=== PATIENT | male | born 1935 | race Caucasian/White ===

== ENCOUNTER 2017-02-13 08:15 | Day surgery (SDC) | payer MEDICARE ==
[~2017-02-13 08:15] MED LIST: Ak-Dilate OPHTHALMIC*** 0.71 ML, Cyclogyl 1% OPHTH SOL 5 ML 0.71 ML, GATIFLOXACIN 0.5% ... OP ONE; DIPRIVAN 200 MG/20 ML IV ONE; Lactated Ringers 1,000 ML IV SCH; TETRACAINE 0.5% STERI-UNIT SOL OP ONE
[2017-02-13] MEDS ORDERED: Zofran 4 MG/2 ML VIAL IV PRN (09:00)
[2017-02-13] MEDS ORDERED: ACETAZOLAMIDE 250 MG TABLET PO ONE (09:00)
[2017-02-13] MEDS ORDERED: Lactated Ringers 1,000 ML IV ONE (09:05)
--- NOTE | 2017-02-13 12:49 | OP ---
DATE/TIME OF OPERATION: 02/13/2017 1147 TIME DICTATED: 1231 PREOPERATIVE DIAGNOSIS: Senile cataract of right eye. POSTOPERATIVE DIAGNOSIS: Senile cataract of right eye. 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 OPERATION: Cataract extraction of right eye with an intraocular lens implant. STANDARD __X___ COMPLEX ANESTHESIA: MAC. ___X___ Monitored anesthesia care in combination with topical and intra-cameral anesthesia (because of the established specific risk of reflux, arrhythmias, or an anxiety attack associated with ocular manipulation as well as difficulty of the general farm hand to manage such potentially catastrophic events while simultaneously attempting to complete the surgical procedure, it was deemed necessary for the patient's safety to have an anesthesiologist or a nurse learning and development analyst present during the procedure whenever possible. The anesthesiologist or the nurse learning and development analyst was utilized to monitor and regulate the intravenous sedation of the patient, so the patient was cooperative, relaxed, and comfortable). Topical anesthesia using Tetracaine eye drops together with intra cameral anesthesia using Lidocaine 1% MPF. The nurse was utilized to monitor the patient. ANESTHESIA PROVIDER: Benjie Sandy CRNA. COMPLICATIONS: None. BLOOD LOSS: None. INDICATIONS: The patient is undergoing cataract surgery in the hopes of eliminating the visual complaints and difficulty. PROCEDURE: After arriving at the facility's outpatient surgery area, an IV was started; the patient was given 5 mg of p.o. Versed. (If an anesthesia provider was not monitoring the patient) The patient was then given topical anesthetic Tetracaine eye drops. A cotton pellet was soaked into a solution of a combination of Zymaxid 0.5%, Devon-Synephrine 2.5% and Ocufen (other drops might have been substituted referenced in the patient's record). The pellet was inserted by the RN into the lower conjunctival cul-de-sac with a sterile forceps and left for 20 minutes. The pellet was then removed by the RN with a sterile forceps before taking the patient to the operating room. The preoperative area nurse identified the patient and marked the correct eye to be operated on. I identified the correct eye to be operated on and marked it appropriately in the outpatient surgery area. The patient was then taken into the operating room. Tetracaine eye drops were installed again in the correct eye. The eyelids and the lashes and the lid margins were scrubbed with Betadine solution. One drop of the diluted Betadine solution was placed in the conjunctival cul-de-sac for 45 seconds and then was irrigated. A drop of Tetracaine Gel was placed in the conjunctival cul-de-sac. The patient's forehead was taped to secure it during the procedure. The patient was monitored. The patient was then draped in the usual way for this procedure. An eye speculum was used to separate the eyelids. The eye was then fixated and a temporal 2.5 mm incision was made in the clear cornea temporally at the limbus. Through the incision, 0.25 cc of 1% non-preserved lidocaine was injected into the anterior chamber for intracameral anesthesia. The anterior chamber was then filled with viscoelastic. The pupil was small. I felt that it would be safer to mechanically dilate the pupil. A Malyugin ring was used at this point which dilated the pupil. That was removed at the end of the procedure prior to aspiration of the viscoelastic from the anterior chamber and posterior to the intraocular lens implant. The cataract had a great amount of cortical changes. That rendered seeing the anterior capsule difficult for a safe performance of an anterior capsulotomy. I injected an air bubble into the anterior chamber. I then injected 1 ML of vision blue solution into the anterior chamber. The vision blue solution was irrigated from the anterior chamber after 30 seconds. The anterior capsule was stained which facilitated performing the anterior capsulotomy safely. After that was completed, a cystotome was introduced into the anterior chamber and a round anterior capsulotomy was performed. The capsule was removed by a forceps. Hydrodissection was next carried utilizing a 25-gauge cannula and balanced salt solution to delineate the cortical material from the capsule and the nucleus from the cortical material. The nucleus was rotated freely into the capsular bag with no difficulty. The phaco tip of the [employer] Phacoemulsifier was introduced into the anterior chamber and two grooves were made into the nucleus 90 degrees apart. Using two spatulas resulted into the nucleus being fractured into four quadrants. The phaco tip was then used to remove each quadrant of the nucleus. Viscoelastic was used during this process to protect the corneal endothelium. Once the entire nucleus was removed, the phaco tip then was removed and the irrigation tip was introduced into the eye and the cortex was removed. The posterior capsule was polished. It was noticed that there was a tear into the posterior capsule with few vitreous strands into the pupil plan. An anterior vitrectomy was performed. A 20.00 diopter, SN60WF, posterior chamber lens implant, was inspected and found to be grossly normal. The implant was inserted into the implant injector cartridge; Viscoelastic again was introduced into the anterior chamber, which filled the capsular bag. The implant injector's cartridge tip was placed at the limbal wound and the posterior chamber implant was released into the capsular bag and rotated appropriately. The implant was found to be into the capsular bag and it was centered. 0.2 ml of Tri-Moxi was introduced via 27 gauge cannula into the vitreous cavity through the ciliary processes. Viscoelastic was aspirated from the anterior chamber and posterior to the intraocular lens implant from the capsular bag using the irrigating tip. The anterior chamber was irrigated and filled with 5 cc antibiotic solution (500 cc of BSS plus 2 ml of Fortaz 100 mg/ml) ( if patient was not allergic to the medication). The lips of the corneal incision were hydrated using BSS solution. The anterior chamber was checked and found to be water tight. __X__ One drop each of antibiotic, steroid and NSAID drops (refer to chart for drops used) were placed in the conjunctival cul-de-sac of the operated eye. Patient tolerated the procedure quite well and left the operating room in satisfactory condition. DISCHARGE SUMMARY: The patient was released in stable condition. The patient and those with the patient were given an instruction sheet as of how to care for the eye after surgery as well as counseling on any abnormal laboratory studies by the postoperative RN. The patient was also given an appointment card for follow-up in the office and is to call immediately for any difficulties including but not limited to pain in the eye, decreased vision, discharge from the eye, headache and or fever. DISCHARGE DIAGNOSIS: Pseudophakia of right eye.
[2017-02-13 13:00] VITALS: O2SAT 94
[2017-02-13 13:24] VITALS: BP 147/70; PULSE 54
[2017-02-13] MEDS ORDERED: BETADINE 5% OPHTHALMIC 30 ML OP ONE (13:30)
[2017-02-13] MEDS ORDERED: Epinephrine Preservative Free 1 MG/ML INTRAOP ONE (13:30)
[2017-02-13] MEDS ORDERED: LIDOCAINE HCL 1% AMPUL 5 ML IJ ONE (13:30)
[2017-02-13] MEDS ORDERED: BSS 500 ML, Fortaz/Tazicef 1 GM** 0.2 G IO ONE ×2 (13:30)
== END 2017-02-13 13:15 | disposition home or self-care (01) ==
LOC: SDC 08:15 → EDSTATUS 13:46
PROVIDERS: ATTEND Ophthalmology
PROC: 08RJ3JZ Replacement of Right Lens with Synthetic Substitute, Percutaneous Approach (ICD-10-PCS; principal; 2017-02-13)
PROC: 08B43ZZ Excision of Right Vitreous, Percutaneous Approach (ICD-10-PCS; 2017-02-13)
DX: H25.9 Unspecified age-related cataract (principal)
CPT/HCPCS: 66984; 67005; C1780; 00142; 99100; J0171; J2704; A9270-GY

== ENCOUNTER 2017-03-13 08:44 | Day surgery (SDC) | payer MEDICARE ==
[~2017-03-13 08:44] MED LIST changes: -DIPRIVAN 200 MG/20 ML IV ONE
[2017-03-13] MEDS ORDERED: Lactated Ringers 1,000 ML IV ONE (08:55)
[2017-03-13] MEDS ORDERED: Zofran 4 MG/2 ML VIAL IV PRN (09:30)
[2017-03-13] MEDS ORDERED: ACETAZOLAMIDE 250 MG TABLET PO ONE (09:30)
[2017-03-13] MEDS ORDERED: BETADINE 5% OPHTHALMIC 30 ML OP ONE (10:15)
[2017-03-13] MEDS ORDERED: BSS 500 ML, Fortaz/Tazicef 1 GM** 0.2 G IO ONE ×2 (10:15)
[2017-03-13] MEDS ORDERED: Epinephrine Preservative Free 1 MG/ML INTRAOP ONE (10:15)
[2017-03-13] MEDS ORDERED: LIDOCAINE HCL 1% AMPUL 5 ML IJ ONE (10:15)
[2017-03-13] MEDS ORDERED: DIPRIVAN 200 MG/20 ML IV ONE (13:00)
[2017-03-13 14:08] VITALS: O2SAT 97
[2017-03-13 14:09] VITALS: BP 152/68; PULSE 50
--- NOTE | 2017-03-14 13:41 | OP ---
DATE/TIME OF OPERATION: 03/13/2017 1250 TIME DICTATED: 1333 PREOPERATIVE DIAGNOSIS: Senile cataract of left eye. POSTOPERATIVE DIAGNOSIS: Senile cataract of left eye. 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 OPERATION: Cataract extraction of left eye with an intraocular lens implant. STANDARD __X___ COMPLEX ANESTHESIA: MAC. __X____ Monitored anesthesia care in combination with topical and intra-cameral anesthesia (because of the established specific risk of reflux, arrhythmias, or an anxiety attack associated with ocular manipulation as well as difficulty of the mica layer to manage such potentially catastrophic events while simultaneously attempting to complete the surgical procedure, it was deemed necessary for the patient's safety to have an anesthesiologist or a nurse mail carriers supervisor present during the procedure whenever possible. The anesthesiologist or the nurse mail carriers supervisor was utilized to monitor and regulate the intravenous sedation of the patient, so the patient was cooperative, relaxed, and comfortable). Topical anesthesia using Tetracaine eye drops together with intra cameral anesthesia using Lidocaine 1% MPF. The nurse was utilized to monitor the patient. ANESTHESIA PROVIDER: Benjie Sandy CRNA. COMPLICATIONS: None. BLOOD LOSS: None. INDICATIONS: The patient is undergoing cataract surgery in the hopes of eliminating the visual complaints and difficulty. PROCEDURE: After arriving at the facility's outpatient surgery area, an IV was started; the patient was given 5 mg of p.o. Versed. (If an anesthesia provider was not monitoring the patient) The patient was then given topical anesthetic Tetracaine eye drops. A cotton pellet was soaked into a solution of a combination of Zymaxid 0.5%, Devon-Synephrine 2.5% and Ocufen (other drops might have been substituted referenced in the patient's record). The pellet was inserted by the RN into the lower conjunctival cul-de-sac with a sterile forceps and left for 20 minutes. The pellet was then removed by the RN with a sterile forceps before taking the patient to the operating room. The preoperative area nurse identified the patient and marked the correct eye to be operated on. I identified the correct eye to be operated on and marked it appropriately in the outpatient surgery area. The patient was then taken into the operating room. Tetracaine eye drops were installed again in the correct eye. The eyelids and the lashes and the lid margins were scrubbed with Betadine solution. One drop of the diluted Betadine solution was placed in the conjunctival cul-de-sac for 45 seconds and then was irrigated. A drop of Tetracaine Gel was placed in the conjunctival cul-de-sac. The patient's forehead was taped to secure it during the procedure. The patient was monitored. The patient was then draped in the usual way for this procedure. An eye speculum was used to separate the eyelids. The eye was then fixated and a temporal 2.5 mm incision was made in the clear cornea temporally at the limbus. Through the incision, 0.25 cc of 1% non-preserved lidocaine was injected into the anterior chamber for intracameral anesthesia. The anterior chamber was then filled with viscoelastic. The pupil was small. I felt that it would be safer to mechanically dilate the pupil. A Malyugin ring was used at this point which dilated the pupil. That was removed at the end of the procedure prior to aspiration of the viscoelastic from the anterior chamber and posterior to the intraocular lens implant. The cataract had a great amount of cortical changes. That rendered seeing the anterior capsule difficult for a safe performance of an anterior capsulotomy. I injected an air bubble into the anterior chamber. I then injected 1 ML of vision blue solution into the anterior chamber. The vision blue solution was irrigated from the anterior chamber after 30 seconds. The anterior capsule was stained which facilitated performing the anterior capsulotomy safely. After that was completed, a cystotome was introduced into the anterior chamber and a round anterior capsulotomy was performed. The capsule was removed by a forceps. Hydrodissection was next carried utilizing a 25-gauge cannula and balanced salt solution to delineate the cortical material from the capsule and the nucleus from the cortical material. The nucleus was rotated freely into the capsular bag with no difficulty. The phaco tip of the [employer] Phacoemulsifier was introduced into the anterior chamber and two grooves were made into the nucleus 90 degrees apart. Using two spatulas resulted into the nucleus being fractured into four quadrants. The phaco tip was then used to remove each quadrant of the nucleus. Viscoelastic was used during this process to protect the corneal endothelium. Once the entire nucleus was removed, the phaco tip then was removed and the irrigation tip was introduced into the eye and the cortex was removed. The posterior capsule was polished. It was noticed that there was a tear into the posterior capsule with few vitreous strands into the pupil plan. An anterior vitrectomy was performed. A __21.0____ diopter, SN60WF, posterior chamber lens implant, was inspected and found to be grossly normal. The implant was inserted into the implant injector cartridge; Viscoelastic again was introduced into the anterior chamber, which filled the capsular bag. The implant injector's cartridge tip was placed at the limbal wound and the posterior chamber implant was released into the capsular bag and rotated appropriately. The implant was found to be into the capsular bag and it was centered. 0.2 ml of Tri-Moxi was introduced via 27 gauge cannula into the vitreous cavity through the ciliary processes. Viscoelastic was aspirated from the anterior chamber and posterior to the intraocular lens implant from the capsular bag using the irrigating tip. The anterior chamber was irrigated and filled with 5 cc antibiotic solution (500 cc of BSS plus 2 ml of Fortaz 100 mg/ml) ( if patient was not allergic to the medication). The lips of the corneal incision were hydrated using BSS solution. The anterior chamber was checked and found to be water tight. ___X___ One drop each of antibiotic, steroid and NSAID drops (refer to chart for drops used) were placed in the conjunctival cul-de-sac of the operated eye. Patient tolerated the procedure quite well and left the operating room in satisfactory condition. DISCHARGE SUMMARY: The patient was released in stable condition. The patient and those with the patient were given an instruction sheet as of how to care for the eye after surgery as well as counseling on any abnormal laboratory studies by the postoperative RN. The patient was also given an appointment card for follow-up in the office and is to call immediately for any difficulties including but not limited to pain in the eye, decreased vision, discharge from the eye, headache and or fever. DISCHARGE DIAGNOSIS: Pseudophakia of left eye.
== END 2017-03-13 14:10 | disposition home or self-care (01) ==
LOC: SDC 08:44
PROVIDERS: ATTEND Ophthalmology
PROC: 08RK3JZ Replacement of Left Lens with Synthetic Substitute, Percutaneous Approach (ICD-10-PCS; principal; 2017-03-13)
PROC: 08B53ZZ Excision of Left Vitreous, Percutaneous Approach (ICD-10-PCS; 2017-03-13)
DX: H25.9 Unspecified age-related cataract (principal); Z96.1 Presence of intraocular lens; E78.00 Pure hypercholesterolemia, unspecified; I10 Essential (primary) hypertension
CPT/HCPCS: 66984; 67005; C1780; 00142; 99100; J0171; J2704; A9270-GY

== ENCOUNTER 2018-01-07 16:47 | Emergency (ER) | payer MEDICARE ==
[2018-01-07] MEDS ORDERED: Adacel Vial IM ONE ×2 (17:02→17:08)
[2018-01-07] MEDS ORDERED: NORCO 7.5/325 MG TAB PO ONE (17:05)
[2018-01-07 17:07] VITALS: BP 167/90; PULSE 70; O2SAT 96
[2018-01-07] MEDS ORDERED: BACIGUENT PACKET TP ONE (17:23)
[2018-01-07] MEDS ORDERED: BACIGUENT PACKET ONE (17:23)
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
--- NOTE | 2018-01-08 08:44 | XRAY ---
Indication: Dog bite. Comparison: None 3 views of the right hand demonstrates mild osteopenia and mild degenerative changes of the 1st/2nd MCP and base of the 1st metacarpal. Distal radial subcortical cyst. No other bony, articular, or soft tissue abnormalities.
== END 2018-01-07 18:04 | disposition home or self-care (01) ==
LOC: ED 16:47
DX: S61.451A Open bite of right hand, initial encounter (principal); W54.0XXA Bitten by dog, initial encounter
CPT/HCPCS: 73130; 90471; 90715; 99283; A9270-GY

== ENCOUNTER 2020-03-21 12:44 | Emergency (ER) | payer MEDICARE ==
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
[2020-03-21] MEDS ORDERED: Sodium Chloride 0.9% 1000 ML 1,000 ML IV STA (13:11)
[2020-03-21] MEDS ORDERED: SUBLIMAZE 250 MCG/5 ML IV ONE (13:13)
[2020-03-21] MEDS ORDERED: SUBLIMAZE 100 MCG/2 ML ONE ×2 (13:14→14:34)
[2020-03-21] MEDS ORDERED: Sodium Chloride 0.9% 1000 ML 1,000 ML ONE (13:14)
[2020-03-21 13:53] VITALS: BP 146/96; PULSE 100; O2SAT 99
[2020-03-21] MEDS ORDERED: CEFAZOLIN 2 GM-D5W BAG** 2 GM/50 ML ML IV STA (14:06)
[2020-03-21] MEDS ORDERED: Maxipime 2 GM** 2 G in Sodium Chloride 0.9% 100 ML IVPB 100 ML IV STA (14:06)
[2020-03-21] MEDS ORDERED: D5w 100ML Mini Bag 100 ML 100 ML IV ONE (14:09)
[2020-03-21] MEDS ORDERED: Maxipime 2 GM ONE (14:09)
[2020-03-21] MEDS ORDERED: SUBLIMAZE 100 MCG/2 ML IV ONE (14:25)
--- NOTE | 2020-03-21 19:34 | XRAY ---
Indication: Dog bite. Comparison: 01/07/18. 3 view right hand demonstrates new minimally displaced distal 5th metacarpal cortical fracture with adjacent soft tissue swelling/laceration and overlying bandage material. Stable osteopenia, 1st/2nd MCP degenerative changes, and tiny distal radius cyst.
== END 2020-03-21 14:52 | disposition short-term general hospital (02) ==
LOC: ED 12:44
DX: S61.451A Open bite of right hand, initial encounter (principal); S62.396A Other fracture of fifth metacarpal bone, right hand, initial encounter for closed fracture; S66.394A Other injury of extensor muscle, fascia and tendon of right ring finger at wrist and hand level, initial encounter; S64.494A Injury of digital nerve of right ring finger, initial encounter; S66.390A Other injury of extensor muscle, fascia and tendon of right index finger at wrist and hand level, initial encounter; S66.392A Other injury of extensor muscle, fascia and tendon of right middle finger at wrist and hand level, initial encounter; S66.396A Other injury of extensor muscle, fascia and tendon of right little finger at wrist and hand level, initial encounter; W54.0XXA Bitten by dog, initial encounter
CPT/HCPCS: 36000; 73130; 93041; 96360; 96365; 96374; 96375; 96376; 99285; A4570; J0690; J0692; J3010

== ENCOUNTER 2021-02-28 13:35 | Observation (INO) | payer MEDICARE ==
[2021-02-28 15:33] LABS: BASOPHIL % 0.2 % (0.0-0.4); Basophil (Absolute #) 0.02 (0-0.4); Eosinophil % 0.3 % (0.00-5.0); Eosinophil (Absolute #) 0.03 (0-0.5); Hematocrit 46.6 % (42-50); Hemoglobin 15.3 gm/dl (12.5-18.0); Lymphocytes % 7.3 % (24.0-44.0); Mean Cell Volume 95.1 fl (78-100); Mean Corpuscular Hemoglobin 31.2 pg (26-32); Mean Corpuscular Hgb Concent. 32.8 g/dl (32-36); Monocyte (Absolute #) 0.83 (0.0-1.3); Monocytes % 8.7 % (0.0-12.0); Neutrophil % 83.5 % (36.0-66.0); Platelet Count 165 K/mm3 (150-450); Red Cell Distribution Width 13.7 % (11.5-14.0); White Blood Count 9.6 K/mm3 (4.0-10.5)
[2021-02-28 15:44] LABS: ALBUMIN 3.7 g/dL (3.5-5.0); ALKALINE PHOSPHATASE 82 U/L (38-126); ANION GAP 8.7 MEQ/L (5-15); BLOOD UREA NITROGEN 15 mg/dL (9-20); CHLORIDE 99 mmol/L (98-107); Calcium 8.8 mg/dL (8.4-10.2); Carbon Dioxide 34 mmol/L (22-30); Creatinine 1 0.84 mg/dL (0.66-1.25); EST GLOMERULAR FILTRATION RATE > 60.0 ML/MIN; ETHYL ALCOHOL < 10 mg/dL (0-10); Glucose 127 mg/dL (74-106); MAGNESIUM 2.2 mg/dL (1.6-2.3); Potassium 4.3 mmol/L (3.5-5.1); SGOT/AST 24 U/L (17-59); SGPT/ALT 13 U/L (0-50); SODIUM 137 mmol/L (137-145); Total Protein 6.4 g/dL (6.3-8.2)
--- NOTE | 2021-02-28 16:34 | XRAY ---
Indication: Right frontal laceration following fall. Multiple contiguous sections images obtained through the head without contrast. Comparison: None Age-appropriate global atrophy, moderate periventricular degenerative micro-ischemia bilaterally, 2.5 cm focus of old infarct right basal ganglia, and tiny old left basal ganglia lacunar infarct. 8mm right vertex partial calcified meningioma. No acute intracranial hemorrhage, abnormal extra-axial fluid collection, or mass effect. Fourth ventricle is midline without hydrocephalus. Bony calvarium intact. Visualized paranasal sinuses and mastoid air cells are clear. Impression: 1. Nonacute senile brain. 2. Incidental small right basal ganglia/tiny left basal ganglia remote infarcts and subcentimeter right vertex meningioma.
--- NOTE | 2021-02-28 16:39 | XRAY ---
Indication: Right frontal laceration following fall. Multiple contiguous axial images obtained through the facial bones. Sagittal and coronal reformatted images obtained. Comparison: None Patient is edentulous. Tiny right frontal soft tissue swelling/laceration. No acute fracture, suspicious bony lesions, or radiopaque foreign body. Orbits including roof, cox, and floors are intact. Paranasal sinuses and nasal passages are clear. Minimal nasal septal deviation to the right. Incidental middle turbinate raeann bullosa. Moderates bilateral carotid calcifications. Remaining visualized noncontrasted soft tissues unremarkable. Visualized cervical spine is intact with mild atlantoaxial degenerative arthropathy. Impression: 1. Right frontal soft tissue swelling/laceration. Negative acute fracture. 2. Incidental minimal nasal septal deviation, left middle turbinate raeann bullosa, and bilateral carotid calcifications.
--- NOTE | 2021-02-28 16:45 | XRAY ---
Indication: Syncope. Status post fall. Comparison: December 11, 2019. Portable chest again hyperinflated without focal infiltrate, consolidation, or large effusion. Heart not enlarged. Bony thorax intact again with osteopenia, degenerative changes, and increasing multiple old bilateral rib fractures. Impression: Nonacute chest with chronic features.
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
[2021-02-28] MEDS: Sodium Chloride 0.9% 1000 ML 1,000 ML IV SCH (17:14)
[2021-02-28 18:23] LABS: Appearance SLIGHTLY CLOUDY (CLEAR); Bilirubin NEGATIVE (NEGATIVE); Blood SMALL Ery/ul (0-5); Glucose NEGATIVE (NEGATIVE); Ketones NEGATIVE (NEGATIVE); Leukocyte Esterase NEGATIVE (NEGATIVE); Mucus SLIGHT /HPF (NEGATIVE); Nitrite NEGATIVE (NEGATIVE); Protein,Urine Dip 30 (Negative); Specific Gravity 1.013 (1.005-1.025); Urobilinogen 4 mg/dL (0-1); WBC 0-2 /HPF (0-5)
[2021-02-28 18:36] LABS: Amphetamine,Urine NEGATIVE (NEGATIVE); Barbiturate,Urine NEGATIVE (NEGATIVE); Benzodiazepine,Urine NEGATIVE (NEGATIVE); Cocaine,Urine NEGATIVE (NEGATIVE); Methadone,Urine NEGATIVE (NEGATIVE); Opiate,Urine NEGATIVE (NEGATIVE); PCP,Urine NEGATIVE (NEGATIVE); THC,Urine NEGATIVE (NEGATIVE)
[2021-02-28 19:29] LABS: INFLUENZA A NEGATIVE (NEGATIVE); INFLUENZA B NEGATIVE (NEGATIVE); RESPIRATORY SYNCTIAL VIRUS NEGATIVE (Negative)
[2021-02-28] MEDS ORDERED: Zofran 4 MG/2 ML VIAL IV PRN (21:14)
[2021-02-28] MEDS ORDERED: TYLENOL 325 MG PO PRN (21:14)
[2021-03-01] MEDS: Sodium Chloride 0.9% 1000 ML 1,000 ML IV SCH ×2 (00:40→11:50)
[2021-03-01 06:35] LABS: Risk Ratio 2.6
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
[2021-03-01] MEDS ORDERED: Ecotrin 325 MG PO SCH (10:00)
[2021-03-01] MEDS ORDERED: ISOPTIN S.R. 240 MG PO SCH (11:00)
[2021-03-01] MEDS: DUONEB 0.5-3 MG/3 ml Neb IH SCH ×2 (11:20→15:29)
[2021-03-01] MEDS ORDERED: Nitrostat 0.4 MG Tablet SL PRN (14:57)
[2021-03-01 16:29] VITALS: BP 129/52; PULSE 82
[2021-03-02] MEDS ORDERED: VERAPAMIL HCL 240 MG PO SCH (10:00)
[2021-03-03 07:09] VITALS: O2SAT 92
== END 2021-03-01 17:53 | disposition home or self-care (01) ==
LOC: ED 13:35 → MED SURG 20:28
PROVIDERS: ADMIT Family Medicine; ATTEND Family Medicine
DX: R55 Syncope and collapse (principal); J44.9 Chronic obstructive pulmonary disease, unspecified; Z86.73 Personal history of transient ischemic attack (TIA), and cerebral infarction without residual deficits; W01.198A Fall on same level from slipping, tripping and stumbling with subsequent striking against other object, initial encounter; Y92.524 Gas station as the place of occurrence of the external cause; I10 Essential (primary) hypertension; Z79.899 Other long term (current) drug therapy; J96.11 Chronic respiratory failure with hypoxia; Z20.828 Contact with and (suspected) exposure to other viral communicable diseases; S00.83XA Contusion of other part of head, initial encounter; S00.33XA Contusion of nose, initial encounter; S50.812A Abrasion of left forearm, initial encounter; S80.212A Abrasion, left knee, initial encounter; B88.8 Other specified infestations; F17.200 Nicotine dependence, unspecified, uncomplicated
CPT/HCPCS: 0241U; 36415; 70450; 70486; 71045; 80053; 80061; 80307; 81001; 83721; 83735; 84484; 85025; 87086; 93005; 93268; 94640; 94760; 94762; 99285; G0378; G0480; A9270-GY

== ENCOUNTER 2022-03-10 09:31 | Inpatient (IN) | payer MEDICARE ==
[2022-03-10] MEDS ORDERED: DUONEB 0.5-3 MG/3 ml Neb IH ONE ×2 (09:50→09:56)
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
[2022-03-10] MEDS ORDERED: Sodium Chloride 0.9% 1000 ML 1,000 ML ONE (10:08)
[2022-03-10] MEDS ORDERED: Sodium Chloride 0.9% 1000 ML 1,000 ML IV SCH (10:15)
[2022-03-10 10:26] LABS: INR 1.09 (0.8-3.0); PROTIME 12.9 SECONDS (9.4-12.5)
[2022-03-10 10:41] LABS: ALBUMIN 3.5 g/dL (3.5-5.0); ALKALINE PHOSPHATASE 62 U/L (38-126); ANION GAP 13.8 MEQ/L (5-15); BLOOD UREA NITROGEN 36 mg/dL (9-20); CHLORIDE 103 mmol/L (98-107); Calcium 8.7 mg/dL (8.4-10.2); Carbon Dioxide 30 mmol/L (22-30); Creatinine 1 0.84 mg/dL (0.66-1.25); EST GLOMERULAR FILTRATION RATE > 60.0 ML/MIN; Glucose 127 mg/dL (74-106); MAGNESIUM 2.3 mg/dL (1.6-2.3); NT PRO BNP 1080 pg/mL (0-1800); Potassium 4.5 mmol/L (3.5-5.1); SGOT/AST 90 U/L (17-59); SGPT/ALT 34 U/L (0-50); SODIUM 141 mmol/L (137-145); Total Protein 5.9 g/dL (6.3-8.2)
[2022-03-10 10:44] LABS: Hematocrit 34.3 % (42-50); Hemoglobin 10.3 gm/dl (12.5-18.0); Mean Corpuscular Hemoglobin 27.3 pg (26-32); Platelet Count 180 K/mm3 (150-450); Red Blood Count 3.77 M/mm3 (4.1-5.6); Red Cell Distribution Width 13.7 % (11.5-14.0); White Blood Count 15.9 K/mm3 (4.0-10.5)
[2022-03-10 10:45] LABS: Absolute Neutrophil Ct (ANC) 14.89 (1.4-6.9); Eosinophil % 0.1 % (0.00-5.0); Lymphocyte (Absolute #) 0.26 (1.0-4.6); Lymphocytes % 1.6 % (24.0-44.0); Mean Platelet Volume 12.6 fl (7.5-11.0); Monocyte (Absolute #) 0.78 (0.0-1.3); Monocytes % 4.9 % (0.0-12.0); Neutrophil % 93.3 % (36.0-66.0)
--- NOTE | 2022-03-10 10:45 | XRAY ---
Indication: Short of breath. Comparison: February 28, 2021. Portable chest unchanged again hyperinflated and clear with a few incidental tiny calcified granulomas. Heart not enlarged. Bony thorax intact again with osteopenia, degenerative changes, and old bilateral rib fractures. Impression: Continue nonacute chest with chronic features.
[2022-03-10 10:46] LABS: Basophil (Absolute #) 0.01 (0-0.4); Eosinophil (Absolute #) 0.01 (0-0.5)
[2022-03-10 11:11] LABS: INFLUENZA A NEGATIVE (NEGATIVE); INFLUENZA B NEGATIVE (NEGATIVE); RESPIRATORY SYNCTIAL VIRUS NEGATIVE (Negative); SARS-CoV-2 Xpert Express NEGATIVE (NEGATIVE)
--- NOTE | 2022-03-10 13:33 | XRAY ---
Indication: Elevated d-dimer. Pulmonary embolus. Multiple contiguous axial images obtained through the chest using total of 120 cc Isovue 370 contrast and PE protocol. Comparison: None There is good opacification of the pulmonary arteries to include the lobar and segmental branches. However mild respiration artifact limits evaluation of the more distal lobar and segmental branches. No obvious central pulmonary embolus. Heart not enlarged. Aorta is mildly arteriosclerotic without aneurysm/dissection. Small left hilar calcified nodes. No pathologic mediastinal/hilar lymphadenopathy. Small hiatal hernia. Lungs demonstrates diffuse centrilobular pulmonary emphysema with minimal scattered fibrosis/scarring bilaterally. Mucous plugging/debris seen in all segmental branches of the left lower lobe bronchi and lesser degree medial segmental branch right lower lobe. Posterior medial right lower lobe demonstrates small patchy foci of airspace disease. Adjacently a larger 3.5 x 1.9 cm focus of subpleural masslike opacity may represent organizing/consolidating airspace disease versus mass. No effusion. Bony thorax intact with osteopenia, moderate degenerative changes throughout the spine, and remote L1 superior endplate fracture with 50% height loss. Limited upper abdomen demonstrates fatty liver and a few hepatic cysts, largest 1.2 cm. Impression: 1. Pulmonary embolus evaluation limited by respiration artifact. No central pulmonary embolus. 2. Bronchial mucous plugging/debris seen in segmental branches of both lower lobes, left greater than right. 3. Small focus posterior medial right lower lobe airspace disease. Also adjacent subpleural masslike opacity as detailed may represent organizing/consolidating airspace disease versus mass. 4. Diffuse centrilobular pulmonary emphysema, small hiatal hernia, chronic bony findings, fatty liver, hepatic cysts, and old granulomatous disease.
[2022-03-10] MEDS ORDERED: solu-MEDROL 125 MG, Sterile H2O 10 ml 2 ML IV ONE ×2 (13:56)
[2022-03-10] MEDS ORDERED: ROCEPHIN 1 Gm-D5w 50 ml Bag** 1 G/50 ML IVPB IV STA (13:57)
[2022-03-10] MEDS ORDERED: Sterile H2O 10 ml IJ ONE (14:01)
[2022-03-10] MEDS ORDERED: solu-MEDROL ONE (14:01)
[2022-03-10] MEDS ORDERED: ROCEPHIN 1 Gm-D5w 50 ml Bag** 1 G/50 ML IVPB IV ONE (14:01)
[2022-03-10] MEDS ORDERED: TYLENOL 325 MG PO PRN (14:56)
[2022-03-10] MEDS: Zithromax 500 MG/ 250 ML NaCl Premix 500 MG/250 ML IVPB IV SCH (15:19)
[2022-03-10] MEDS: Sodium Chloride 0.9% 1000 ML 1,000 ML IV SCH (15:19)
[2022-03-10] MEDS ORDERED: DUONEB 0.5-3 MG/3 ml Neb IH PRN (15:38)
[2022-03-10] MEDS: DUONEB 0.5-3 MG/3 ml Neb IH SCH ×2 (16:41→20:27)
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
[2022-03-10] MEDS: ULTRAM 50 MG PO SCH (17:45)
[2022-03-10] MEDS: solu-MEDROL 80 MG, Sterile H2O 10 ml 2 ML IV SCH ×2 (21:46)
[2022-03-11] MEDS: ULTRAM 50 MG PO SCH ×5 (00:12→22:22)
[2022-03-11] MEDS: solu-MEDROL 80 MG, Sterile H2O 10 ml 2 ML IV SCH ×6 (05:48→22:22)
[2022-03-11 06:16] LABS: Absolute Neutrophil Ct (ANC) 7.64 (1.4-6.9); Basophil (Absolute #) 0.01 (0-0.4); Eosinophil (Absolute #) 0 (0-0.5); Hematocrit 28.7 % (42-50); Hemoglobin 8.5 gm/dl (12.5-18.0); Lymphocyte (Absolute #) 0.19 (1.0-4.6); Lymphocytes % 2.4 % (24.0-44.0); Mean Cell Volume 91.7 fl (78-100); Mean Corpuscular Hemoglobin 27.2 pg (26-32); Mean Corpuscular Hgb Concent. 29.6 g/dl (32-36); Mean Platelet Volume 11.9 fl (7.5-11.0); Monocyte (Absolute #) 0.14 (0.0-1.3); Monocytes % 1.8 % (0.0-12.0); Neutrophil % 95.7 % (36.0-66.0); Platelet Count 147 K/mm3 (150-450); Red Blood Count 3.13 M/mm3 (4.1-5.6); Red Cell Distribution Width 13.6 % (11.5-14.0)
[2022-03-11 06:19] LABS: ALKALINE PHOSPHATASE 49 U/L (38-126); ANION GAP 6.5 MEQ/L (5-15); BLOOD UREA NITROGEN 35 mg/dL (9-20); CHLORIDE 106 mmol/L (98-107); Carbon Dioxide 33 mmol/L (22-30); Creatinine 1 0.74 mg/dL (0.66-1.25); EST GLOMERULAR FILTRATION RATE > 60.0 ML/MIN; Glucose 119 mg/dL (74-106); Potassium 4.3 mmol/L (3.5-5.1); SGOT/AST 84 U/L (17-59); SGPT/ALT 31 U/L (0-50); SODIUM 142 mmol/L (137-145); Total Protein 5.4 g/dL (6.3-8.2)
[2022-03-11] MEDS: DUONEB 0.5-3 MG/3 ml Neb IH SCH ×3 (07:22→18:51)
[2022-03-11] MEDS: ROCEPHIN 1 Gm-D5w 50 ml Bag** 1 G/50 ML IVPB IV SCH (09:11)
[2022-03-11 09:36] LABS: Slide Review 1 YES
[2022-03-11] MEDS: Zithromax 500 MG/ 250 ML NaCl Premix 500 MG/250 ML IVPB IV SCH (09:39)
[2022-03-11] MEDS ORDERED: Lopressor 25MG Tab PO ONE (09:42)
--- NOTE | 2022-03-11 15:56 | PCM.NOTE ---
Date and Time: 03/11/22 1551 Subjective Assessment: Pt had HR up to 150 this morning; had EKG but at that point the HR was 99. Read as sinus rhythm. He was asymptomatic. Given metoprolol 25mg x1 with HR decrease; BP was 105/49 at the time, and is now 98/49. He tells me that years ago he used to be on verapamil. He is feeling much better than at admission. On 2L NC. He is on isolation for possible bed bugs. - Review of Systems Constitutional: No Fever Respiratory: Short Of Breath Objective Exam General Appearance: no apparent distress, alert Neurologic Exam: oriented x 3, cooperative Skin Exam: normal color, warm, dry, No rash Respiratory Exam: diminished breath sounds (poor air exchange), rhonchi (mild, RML) Cardiovascular Exam: regular rate/rhythm, No normal heart sounds (distant) Gastrointestinal/Abdomen Exam: soft, normal bowel sounds, No tenderness, No distention, No mass, No guarding, No rebound Extremity Exam: normal inspection, No pedal edema, No swelling OBJECTIVE DATA Vital Signs: Vital Signs - 24 hr Temp Pulse Resp BP Pulse Ox 03/11/22 15:46 97.9 F 68 16 168/54 96 03/11/22 12:43 64 18 96 03/11/22 11:55 98.2 F 64 16 98/49 96 03/11/22 07:23 83 18 90 L 03/11/22 07:02 97.9 F 87 16 107/51 90 L 03/11/22 04:00 98.2 F 80 14 118/56 03/11/22 00:00 97.3 F 69 10 L 127/59 03/10/22 20:30 68 16 96 03/10/22 20:00 97.7 F 71 20 117/57 03/10/22 16:41 78 18 95 03/10/22 16:08 97.3 F 83 24 147/56 96 Pain Assessment - Last Documented Pain Intensity 3 Intake and Output: Intake & Output 03/09/22 03/10/22 03/11/22 03/12/22 11:59 11:59 11:59 11:59 Intake Total 1469 240 Balance 1469 240 Weight 42.3 kg 46.1 kg Lab Results: Lab Results-Last 24 Hours 03/10/22 03/10/22 03/10/22 Range/Units 13:25 16:20 16:20 WBC (4.0-10.5) K/mm3 RBC (4.1-5.6) M/mm3 Hgb (12.5-18.0) gm/dl Hct (42-50) % MCV (78-100) fl MCH (26-32) pg MCHC (32-36) g/dl RDW (11.5-14.0) % Plt Count (150-450) K/mm3 MPV (7.5-11.0) fl Gran % (36.0-66.0) % Eos # (Auto) (0-0.5) Absolute Lymphs (auto) (1.0-4.6) Absolute Monos (auto) (0.0-1.3) Lymphocytes % (24.0-44.0) % Monocytes % (0.0-12.0) % Eosinophils % (0.00-5.0) % Basophils % (0.0-0.4) % Absolute Granulocytes (1.4-6.9) Basophils # (0-0.4) Sodium (137-145) mmol/L Potassium (3.5-5.1) mmol/L Chloride (98-107) mmol/L Carbon Dioxide (22-30) mmol/L Anion Gap (5-15) MEQ/L BUN (9-20) mg/dL Creatinine (0.66-1.25) mg/dL Estimated GFR ML/MIN Glucose (74-106) mg/dL Calcium (8.4-10.2) mg/dL Total Bilirubin (0.2-1.3) mg/dL AST (17-59) U/L ALT (0-50) U/L Alkaline Phosphatase (38-126) U/L Troponin I 0.024 0.025 (0.000-0.034) ng/mL Serum Total Protein (6.3-8.2) g/dL Albumin (3.5-5.0) g/dL Prealbumin 8.24 L (17.6-36.0) mg/dL Slides for Path Review 03/10/22 03/10/22 03/11/22 Range/Units 19:10 22:25 05:40 WBC 8.0 (4.0-10.5) K/mm3 RBC 3.13 L (4.1-5.6) M/mm3 Hgb 8.5 L (12.5-18.0) gm/dl Hct 28.7 L (42-50) % MCV 91.7 (78-100) fl MCH 27.2 (26-32) pg MCHC 29.6 L (32-36) g/dl RDW 13.6 (11.5-14.0) % Plt Count 147 L (150-450) K/mm3 MPV 11.9 H (7.5-11.0) fl Gran % 95.7 H (36.0-66.0) % Eos # (Auto) 0 (0-0.5) Absolute Lymphs (auto) 0.19 L (1.0-4.6) Absolute Monos (auto) 0.14 (0.0-1.3) Lymphocytes % 2.4 L (24.0-44.0) % Monocytes % 1.8 (0.0-12.0) % Eosinophils % 0.0 (0.00-5.0) % Basophils % 0.1 (0.0-0.4) % Absolute Granulocytes 7.64 H (1.4-6.9) Basophils # 0.01 (0-0.4) Sodium (137-145) mmol/L Potassium (3.5-5.1) mmol/L Chloride (98-107) mmol/L Carbon Dioxide (22-30) mmol/L Anion Gap (5-15) MEQ/L BUN (9-20) mg/dL Creatinine (0.66-1.25) mg/dL Estimated GFR ML/MIN Glucose (74-106) mg/dL Calcium (8.4-10.2) mg/dL Total Bilirubin (0.2-1.3) mg/dL AST (17-59) U/L ALT (0-50) U/L Alkaline Phosphatase (38-126) U/L Troponin I 0.020 0.019 (0.000-0.034) ng/mL Serum Total Protein (6.3-8.2) g/dL Albumin (3.5-5.0) g/dL Prealbumin (17.6-36.0) mg/dL Slides for Path Review YES 03/11/22 Range/Units 05:40 WBC (4.0-10.5) K/mm3 RBC (4.1-5.6) M/mm3 Hgb (12.5-18.0) gm/dl Hct (42-50) % MCV (78-100) fl MCH (26-32) pg MCHC (32-36) g/dl RDW (11.5-14.0) % Plt Count (150-450) K/mm3 MPV (7.5-11.0) fl Gran % (36.0-66.0) % Eos # (Auto) (0-0.5) Absolute Lymphs (auto) (1.0-4.6) Absolute Monos (auto) (0.0-1.3) Lymphocytes % (24.0-44.0) % Monocytes % (0.0-12.0) % Eosinophils % (0.00-5.0) % Basophils % (0.0-0.4) % Absolute Granulocytes (1.4-6.9) Basophils # (0-0.4) Sodium 142 (137-145) mmol/L Potassium 4.3 (3.5-5.1) mmol/L Chloride 106 (98-107) mmol/L Carbon Dioxide 33 H (22-30) mmol/L Anion Gap 6.5 (5-15) MEQ/L BUN 35 H (9-20) mg/dL Creatinine 0.74 (0.66-1.25) mg/dL Estimated GFR > 60.0 ML/MIN Glucose 119 H (74-106) mg/dL Calcium 8.0 L (8.4-10.2) mg/dL Total Bilirubin 0.50 (0.2-1.3) mg/dL AST 84 H (17-59) U/L ALT 31 (0-50) U/L Alkaline Phosphatase 49 (38-126) U/L Troponin I (0.000-0.034) ng/mL Serum Total Protein 5.4 L (6.3-8.2) g/dL Albumin 3.0 L (3.5-5.0) g/dL Prealbumin (17.6-36.0) mg/dL Slides for Path Review Radiology Exams: Radiology Procedures Category Date Time Status CHEST 1 VIEW (PORTABLE) Stat Exams 03/10/22 10:01 Completed CHEST WITH CONTRAST [CT] Stat Exams 03/10/22 11:22 Completed Assessment/Plan (1) Pulmonary infiltrate in right lung on chest x-ray Current Visit: Yes Status: Acute Assessment & Plan: treating with rocephin and zithromax day #2. Code(s): R91.8 - OTHER NONSPECIFIC ABNORMAL FINDING OF LUNG FIELD (2) Right lower lobe lung mass Current Visit: Yes Status: Suspected Assessment & Plan: Needs re-imaging after infection has been treated. Code(s): R91.8 - OTHER NONSPECIFIC ABNORMAL FINDING OF LUNG FIELD (3) Anemia Current Visit: Yes Status: Acute Qualifiers: Anemia type: unspecified type Qualified Code(s): D64.9 - Anemia, unspecified Assessment & Plan: Could be at least partially dilutional; hgb however was only 10.3 on admission. check iron studies. Code(s): D64.9 - ANEMIA, UNSPECIFIED (4) Hyperglycemia Current Visit: Yes Status: Acute Assessment & Plan: check a1c. BS 119 this morning. Code(s): R73.9 - HYPERGLYCEMIA, UNSPECIFIED (5) COPD exacerbation Current Visit: Yes Status: Acute Code(s): J44.1 - CHRONIC OBSTRUCTIVE PULMONARY DISEASE W (ACUTE) EXACERBATION (6) Sinus tachycardia Current Visit: Yes Status: Acute Assessment & Plan: will continue toprol BID for now, as long as blood pressure supports it. Code(s): R00.0 - TACHYCARDIA, UNSPECIFIED
[2022-03-11] MEDS: Sodium Chloride 0.9% 1000 ML 1,000 ML IV SCH (17:14)
[2022-03-11 19:39] LABS: Bacteria RARE /HPF (NEGATIVE); Mucus SLIGHT /HPF (NEGATIVE); RBC 0-2 /HPF (0-2)
[2022-03-11 19:40] LABS: Appearance CLEAR (CLEAR); Bilirubin NEGATIVE (NEGATIVE); Dipstick done @ ? MAIN LAB; Glucose 100 mg/dL (NEGATIVE); Ketones NEGATIVE (NEGATIVE); Nitrite NEGATIVE (NEGATIVE); Protein,Urine Dip 30 (Negative); RBC TRACE-LYSED Ery/ul (0-5); Specific Gravity >=1.030 (1.005-1.025); Urobilinogen 0.2 mg/dL (0-1)
[2022-03-11 19:41] LABS: Urine Cultured Indicated? YES
[2022-03-11] MEDS: Lopressor 25MG Tab PO SCH (22:22)
[2022-03-12] MEDS: Sodium Chloride 0.9% 1000 ML 1,000 ML IV SCH (05:36)
[2022-03-12] MEDS: solu-MEDROL 80 MG, Sterile H2O 10 ml 2 ML IV SCH ×6 (05:36→21:58)
[2022-03-12 06:19] LABS: Absolute Neutrophil Ct (ANC) 14.71 (1.4-6.9); Basophil (Absolute #) 0.02 (0-0.4); Eosinophil (Absolute #) 0 (0-0.5); Hematocrit 28.1 % (42-50); Lymphocyte (Absolute #) 0.19 (1.0-4.6); Lymphocytes % 1.2 % (24.0-44.0); Mean Cell Volume 93.7 fl (78-100); Mean Corpuscular Hemoglobin 26.7 pg (26-32); Mean Corpuscular Hgb Concent. 28.5 g/dl (32-36); Mean Platelet Volume 12.3 fl (7.5-11.0); Monocyte (Absolute #) 0.33 (0.0-1.3); Monocytes % 2.2 % (0.0-12.0); Neutrophil % 96.5 % (36.0-66.0); Platelet Count 149 K/mm3 (150-450); Red Cell Distribution Width 13.7 % (11.5-14.0); White Blood Count 15.3 K/mm3 (4.0-10.5)
[2022-03-12 06:28] LABS: ANION GAP 5.9 MEQ/L (5-15); BLOOD UREA NITROGEN 33 mg/dL (9-20); CHLORIDE 106 mmol/L (98-107); Calcium 8.1 mg/dL (8.4-10.2); Carbon Dioxide 36 mmol/L (22-30); Creatinine 1 0.76 mg/dL (0.66-1.25); EST GLOMERULAR FILTRATION RATE > 60.0 ML/MIN; Glucose 137 mg/dL (74-106); SODIUM 144 mmol/L (137-145)
[2022-03-12 06:35] LABS: Iron 24 ug/dL (49-181); Iron Saturation 8 % (20-39); TIBC 320 ug/dL (261-497)
[2022-03-12 06:57] LABS: Potassium 5.2 mmol/L (3.5-5.1)
[2022-03-12] MEDS: DUONEB 0.5-3 MG/3 ml Neb IH SCH ×3 (07:43→20:02)
--- NOTE | 2022-03-12 10:04 | PCM.NOTE ---
Date and Time: 03/12/22 1001 Subjective Assessment: Pt states he is better - breathing is better. He is anxious to get up out of bed, as he was unable to the other day. Janelle po. - Review of Systems Constitutional: No Fever Abdominal/Gastrointestinal: No Vomiting Objective Exam General Appearance: no apparent distress, alert Neurologic Exam: oriented x 3, cooperative Skin Exam: normal color, warm, dry, No rash Eye Exam: eyes nml inspection Ears, Nose, Throat Exam: moist mucous membranes Neck Exam: normal inspection Respiratory Exam: diminished breath sounds (poor air exchange) Cardiovascular Exam: regular rate/rhythm, No normal heart sounds (distant), No murmur Gastrointestinal/Abdomen Exam: soft, normal bowel sounds Extremity Exam: normal inspection, No pedal edema, No swelling Back Exam: normal inspection, No rash OBJECTIVE DATA Vital Signs: Vital Signs - 24 hr Temp Pulse Resp BP Pulse Ox 03/12/22 08:00 97.1 F 65 18 131/60 97 03/12/22 07:43 65 18 97 03/12/22 04:00 97.7 F 60 15 110/68 97 03/12/22 00:00 97.7 F 77 22 107/64 92 L 03/11/22 19:38 97.7 F 82 20 118/53 90 L 03/11/22 18:55 76 18 90 L 03/11/22 15:46 97.9 F 68 16 168/54 96 03/11/22 12:43 64 18 96 03/11/22 11:55 98.2 F 64 16 98/49 96 Pain Assessment - Last Documented Pain Intensity 0 Intake and Output: Intake & Output 03/09/22 03/10/22 03/11/22 03/12/22 11:59 11:59 11:59 11:59 Intake Total 1469 3990 Output Total 300 Balance 1469 3690 Weight 42.3 kg 46.1 kg 47.4 kg Lab Results: Lab Results-Last 24 Hours 03/10/22 03/12/22 03/12/22 Range/Units 19:29 05:45 05:45 WBC 15.3 H (4.0-10.5) K/mm3 RBC 3.00 L (4.1-5.6) M/mm3 Hgb 8.0 L (12.5-18.0) gm/dl Hct 28.1 L (42-50) % MCV 93.7 (78-100) fl MCH 26.7 (26-32) pg MCHC 28.5 L (32-36) g/dl RDW 13.7 (11.5-14.0) % Plt Count 149 L (150-450) K/mm3 MPV 12.3 H (7.5-11.0) fl Gran % 96.5 H (36.0-66.0) % Eos # (Auto) 0 (0-0.5) Absolute Lymphs (auto) 0.19 L (1.0-4.6) Absolute Monos (auto) 0.33 (0.0-1.3) Lymphocytes % 1.2 L (24.0-44.0) % Monocytes % 2.2 (0.0-12.0) % Eosinophils % 0.0 (0.00-5.0) % Basophils % 0.1 (0.0-0.4) % Absolute Granulocytes 14.71 H (1.4-6.9) Basophils # 0.02 (0-0.4) Sodium (137-145) mmol/L Potassium (3.5-5.1) mmol/L Chloride (98-107) mmol/L Carbon Dioxide (22-30) mmol/L Anion Gap (5-15) MEQ/L BUN (9-20) mg/dL Creatinine (0.66-1.25) mg/dL Estimated GFR ML/MIN Glucose (74-106) mg/dL Hemoglobin A1c 5.68 (4.5-6.0) % Calcium (8.4-10.2) mg/dL Iron (49-181) ug/dL TIBC (261-497) ug/dL Iron Saturation (20-39) % Urinalys Dipstick Clnc MAIN LAB Urine Color YELLOW (YELLOW) Urine Appearance CLEAR (CLEAR) Urine pH 6.0 (5-6) Ur Specific [place] >=1.030 (1.005-1.025) POC Urine Protein Conf 30 (Negative) Urine Ketones NEGATIVE (NEGATIVE) Urine Nitrite NEGATIVE (NEGATIVE) Urine Bilirubin NEGATIVE (NEGATIVE) Urine Urobilinogen 0.2 (0-1) mg/dL Urine Leukocytes NEGATIVE (NEGATIVE) Urine WBC (Auto) 3-5 (0-5) /HPF Urine RBC (Auto) 0-2 (0-2) /HPF U Epithel Cells (Auto) NONE (FEW) /HPF Urine Bacteria (Auto) RARE (NEGATIVE) /HPF Urine RBC TRACE-LYSED (0-5) Mynor/ul Urine Mucus (Auto) SLIGHT (NEGATIVE) /HPF Ur Culture Indicated? YES Urine Glucose 100 (NEGATIVE) mg/dL 03/12/22 03/12/22 Range/Units 05:45 05:45 WBC (4.0-10.5) K/mm3 RBC (4.1-5.6) M/mm3 Hgb (12.5-18.0) gm/dl Hct (42-50) % MCV (78-100) fl MCH (26-32) pg MCHC (32-36) g/dl RDW (11.5-14.0) % Plt Count (150-450) K/mm3 MPV (7.5-11.0) fl Gran % (36.0-66.0) % Eos # (Auto) (0-0.5) Absolute Lymphs (auto) (1.0-4.6) Absolute Monos (auto) (0.0-1.3) Lymphocytes % (24.0-44.0) % Monocytes % (0.0-12.0) % Eosinophils % (0.00-5.0) % Basophils % (0.0-0.4) % Absolute Granulocytes (1.4-6.9) Basophils # (0-0.4) Sodium 144 (137-145) mmol/L Potassium 5.2 H D (3.5-5.1) mmol/L Chloride 106 (98-107) mmol/L Carbon Dioxide 36 H (22-30) mmol/L Anion Gap 5.9 (5-15) MEQ/L BUN 33 H (9-20) mg/dL Creatinine 0.76 (0.66-1.25) mg/dL Estimated GFR > 60.0 ML/MIN Glucose 137 H (74-106) mg/dL Hemoglobin A1c (4.5-6.0) % Calcium 8.1 L (8.4-10.2) mg/dL Iron 24 L (49-181) ug/dL TIBC 320 (261-497) ug/dL Iron Saturation 8 L (20-39) % Urinalys Dipstick Clnc Urine Color (YELLOW) Urine Appearance (CLEAR) Urine pH (5-6) Ur Specific [place] (1.005-1.025) POC Urine Protein Conf (Negative) Urine Ketones (NEGATIVE) Urine Nitrite (NEGATIVE) Urine Bilirubin (NEGATIVE) Urine Urobilinogen (0-1) mg/dL Urine Leukocytes (NEGATIVE) Urine WBC (Auto) (0-5) /HPF Urine RBC (Auto) (0-2) /HPF U Epithel Cells (Auto) (FEW) /HPF Urine Bacteria (Auto) (NEGATIVE) /HPF Urine RBC (0-5) Mynor/ul Urine Mucus (Auto) (NEGATIVE) /HPF Ur Culture Indicated? Urine Glucose (NEGATIVE) mg/dL Radiology Exams: Radiology Procedures Category Date Time Status CHEST 1 VIEW (PORTABLE) Stat Exams 03/10/22 10:01 Completed CHEST WITH CONTRAST [CT] Stat Exams 03/10/22 11:22 Completed Assessment/Plan (1) Pulmonary infiltrate in right lung on chest x-ray Current Visit: Yes Status: Acute Assessment & Plan: Treating with rocephin and zithromax, day #3, and pt is improving. Code(s): R91.8 - OTHER NONSPECIFIC ABNORMAL FINDING OF LUNG FIELD (2) Right lower lobe lung mass Current Visit: Yes Status: Suspected Assessment & Plan: possible Code(s): R91.8 - OTHER NONSPECIFIC ABNORMAL FINDING OF LUNG FIELD (3) Anemia Current Visit: Yes Status: Acute Qualifiers: Anemia type: unspecified type Qualified Code(s): D64.9 - Anemia, unspecified Assessment & Plan: down a bit more today, 8.0 down from 8.5. will check FiOB. Pt has no hx of GI bleed per him. Starting pt on lovenox as below. Code(s): D64.9 - ANEMIA, UNSPECIFIED (4) Hyperglycemia Current Visit: Yes Status: Acute Code(s): R73.9 - HYPERGLYCEMIA, UNSPECIFIED (5) COPD exacerbation Current Visit: Yes Status: Acute Code(s): J44.1 - CHRONIC OBSTRUCTIVE PULMONARY DISEASE W (ACUTE) EXACERBATION (6) Sinus tachycardia Current Visit: Yes Status: Resolved Assessment & Plan: resolved with normal hr since 1900 yesterday. on toprol 25mg po BID. Code(s): R00.0 - TACHYCARDIA, UNSPECIFIED (7) DVT prophylaxis Current Visit: Yes Status: Acute Assessment & Plan: will start pt on Lovenox, despite anemia. He notes his mom of a blood clot. Code(s): Z29.9 - ENCOUNTER FOR PROPHYLACTIC MEASURES, UNSPECIFIED
[2022-03-12] MEDS: ULTRAM 50 MG PO SCH ×4 (10:18→21:58)
[2022-03-12] MEDS: ENOXAPARIN SODIUM SQ SCH (10:18)
[2022-03-12] MEDS: Lopressor 25MG Tab PO SCH ×2 (10:18→21:58)
[2022-03-12] MEDS: Zithromax 500 MG/ 250 ML NaCl Premix 500 MG/250 ML IVPB IV SCH (10:18)
[2022-03-12] MEDS: ROCEPHIN 1 Gm-D5w 50 ml Bag** 1 G/50 ML IVPB IV SCH (10:18)
[2022-03-12 13:55] LABS: Slide Review 1 YES
[2022-03-13 05:20] LABS: Absolute Neutrophil Ct (ANC) 10.73 (1.4-6.9); Basophil (Absolute #) 0.02 (0-0.4); Eosinophil (Absolute #) 0 (0-0.5); Hematocrit 27.2 % (42-50); Hemoglobin 7.7 gm/dl (12.5-18.0); Lymphocyte (Absolute #) 0.12 (1.0-4.6); Lymphocytes % 1.1 % (24.0-44.0); Mean Cell Volume 94.4 fl (78-100); Mean Corpuscular Hemoglobin 26.7 pg (26-32); Mean Corpuscular Hgb Concent. 28.3 g/dl (32-36); Mean Platelet Volume 11.5 fl (7.5-11.0); Monocyte (Absolute #) 0.17 (0.0-1.3); Monocytes % 1.5 % (0.0-12.0); Neutrophil % 97.2 % (36.0-66.0); Platelet Count 139 K/mm3 (150-450); Red Blood Count 2.88 M/mm3 (4.1-5.6); Red Cell Distribution Width 13.8 % (11.5-14.0)
[2022-03-13] MEDS: solu-MEDROL 80 MG, Sterile H2O 10 ml 2 ML IV SCH ×2 (05:30)
[2022-03-13 05:58] LABS: ALBUMIN 2.7 g/dL (3.5-5.0); ALKALINE PHOSPHATASE 45 U/L (38-126); ANION GAP 4.9 MEQ/L (5-15); BLOOD UREA NITROGEN 26 mg/dL (9-20); CHLORIDE 106 mmol/L (98-107); Calcium 7.8 mg/dL (8.4-10.2); Carbon Dioxide 35 mmol/L (22-30); Creatinine 1 0.57 mg/dL (0.66-1.25); EST GLOMERULAR FILTRATION RATE > 60.0 ML/MIN; Glucose 131 mg/dL (74-106); Potassium 5.2 mmol/L (3.5-5.1); SGOT/AST 39 U/L (17-59); SGPT/ALT 32 U/L (0-50); SODIUM 141 mmol/L (137-145)
[2022-03-13] MEDS: DUONEB 0.5-3 MG/3 ml Neb IH SCH ×3 (06:57→18:55)
[2022-03-13 07:05] LABS: Slide Review 1 YES
[2022-03-13] MEDS: Lopressor 25MG Tab PO SCH ×2 (09:52→21:17)
[2022-03-13] MEDS: ENOXAPARIN SODIUM SQ SCH (09:52)
[2022-03-13] MEDS: Zithromax 500 MG/ 250 ML NaCl Premix 500 MG/250 ML IVPB IV SCH (09:52)
[2022-03-13] MEDS: ULTRAM 50 MG PO SCH ×4 (09:52→21:17)
[2022-03-13] MEDS: ROCEPHIN 1 Gm-D5w 50 ml Bag** 1 G/50 ML IVPB IV SCH (09:52)
--- NOTE | 2022-03-13 09:53 | PCM.NOTE ---
Date and Time: 03/13/22 0950 Subjective Assessment: Patient states he is weak and he had fallen and could not pull himself up from the floor at home last .Denies change in stool no dark or red stool,no indigestion or abdominal pain. States he enjoyed biscuits and gravy for breakfast. Hgb is down to 7.7 and he agrees to a blood transfusion.States breathing is better. Objective Exam General Appearance: no apparent distress Neurologic Exam: alert (orientd to person and place), cooperative, normal mood/affect Skin Exam: warm, dry, other (sallow colored) Respiratory Exam: diminished breath sounds (bases) Cardiovascular Exam: regular rate/rhythm Gastrointestinal/Abdomen Exam: soft (nontender) Extremity Exam: normal inspection (no edema) OBJECTIVE DATA Vital Signs: Vital Signs - 24 hr Temp Pulse Resp BP Pulse Ox 03/13/22 07:37 97.6 F 62 16 142/67 92 L 03/13/22 07:10 62 18 92 L 03/13/22 04:00 97.5 F 64 16 140/61 91 L 03/13/22 00:00 97.7 F 61 16 134/63 94 L 03/12/22 20:03 59 L 18 91 L 03/12/22 19:45 97.5 F 62 16 120/57 93 L 03/12/22 16:00 98.2 F 65 20 120/52 96 03/12/22 10:47 97.5 F 72 25 H 120/58 95 Pain Assessment - Last Documented Pain Intensity 2 Intake and Output: Intake & Output 03/10/22 03/11/22 03/12/22 03/13/22 11:59 11:59 11:59 11:59 Intake Total 1469 4110 1891 Output Total 300 500 Balance 1469 3810 1391 Weight 42.3 kg 46.1 kg 47.4 kg 48.4 kg Lab Results: Lab Results-Last 24 Hours 03/12/22 03/12/22 03/12/22 Range/Units 05:45 05:45 14:05 WBC (4.0-10.5) K/mm3 RBC (4.1-5.6) M/mm3 Hgb (12.5-18.0) gm/dl Hct (42-50) % MCV (78-100) fl MCH (26-32) pg MCHC (32-36) g/dl RDW (11.5-14.0) % Plt Count (150-450) K/mm3 MPV (7.5-11.0) fl Gran % (36.0-66.0) % Eos # (Auto) (0-0.5) Absolute Lymphs (auto) (1.0-4.6) Absolute Monos (auto) (0.0-1.3) Lymphocytes % (24.0-44.0) % Monocytes % (0.0-12.0) % Eosinophils % (0.00-5.0) % Basophils % (0.0-0.4) % Absolute Granulocytes (1.4-6.9) Basophils # (0-0.4) Sodium (137-145) mmol/L Potassium 4.7 (3.5-5.1) mmol/L Chloride (98-107) mmol/L Carbon Dioxide (22-30) mmol/L Anion Gap (5-15) MEQ/L BUN (9-20) mg/dL Creatinine (0.66-1.25) mg/dL Estimated GFR ML/MIN Glucose (74-106) mg/dL Calcium (8.4-10.2) mg/dL Ferritin 11.1 L (17.9-464) ng/mL Total Bilirubin (0.2-1.3) mg/dL AST (17-59) U/L ALT (0-50) U/L Alkaline Phosphatase (38-126) U/L Serum Total Protein (6.3-8.2) g/dL Albumin (3.5-5.0) g/dL Slides for Path Review YES 03/13/22 03/13/22 Range/Units 04:30 04:30 WBC 11.0 H (4.0-10.5) K/mm3 RBC 2.88 L (4.1-5.6) M/mm3 Hgb 7.7 L (12.5-18.0) gm/dl Hct 27.2 L (42-50) % MCV 94.4 (78-100) fl MCH 26.7 (26-32) pg MCHC 28.3 L (32-36) g/dl RDW 13.8 (11.5-14.0) % Plt Count 139 L (150-450) K/mm3 MPV 11.5 H (7.5-11.0) fl Gran % 97.2 H (36.0-66.0) % Eos # (Auto) 0 (0-0.5) Absolute Lymphs (auto) 0.12 L (1.0-4.6) Absolute Monos (auto) 0.17 (0.0-1.3) Lymphocytes % 1.1 L (24.0-44.0) % Monocytes % 1.5 (0.0-12.0) % Eosinophils % 0.0 (0.00-5.0) % Basophils % 0.2 (0.0-0.4) % Absolute Granulocytes 10.73 H (1.4-6.9) Basophils # 0.02 (0-0.4) Sodium 141 (137-145) mmol/L Potassium 5.2 H (3.5-5.1) mmol/L Chloride 106 (98-107) mmol/L Carbon Dioxide 35 H (22-30) mmol/L Anion Gap 4.9 L (5-15) MEQ/L BUN 26 H (9-20) mg/dL Creatinine 0.57 L (0.66-1.25) mg/dL Estimated GFR > 60.0 ML/MIN Glucose 131 H (74-106) mg/dL Calcium 7.8 L (8.4-10.2) mg/dL Ferritin (17.9-464) ng/mL Total Bilirubin 0.30 (0.2-1.3) mg/dL AST 39 (17-59) U/L ALT 32 (0-50) U/L Alkaline Phosphatase 45 (38-126) U/L Serum Total Protein 5.0 L (6.3-8.2) g/dL Albumin 2.7 L (3.5-5.0) g/dL Slides for Path Review YES Assessment/Plan (1) COPD exacerbation Current Visit: Yes Status: Acute Assessment & Plan: improved Code(s): J44.1 - CHRONIC OBSTRUCTIVE PULMONARY DISEASE W (ACUTE) EXACERBATION (2) Hypoxia Current Visit: Yes Status: Acute Assessment & Plan: improved Code(s): R09.02 - HYPOXEMIA (3) Right lower lobe lung mass Current Visit: Yes Status: Suspected Code(s): R91.8 - OTHER NONSPECIFIC ABNORMAL FINDING OF LUNG FIELD (4) Anemia Current Visit: Yes Status: Acute Qualifiers: Anemia type: unspecified type Qualified Code(s): D64.9 - Anemia, unspecified Assessment & Plan: GI symptoms negative ,heme test . Transfuse 2 units PRBCs Code(s): D64.9 - ANEMIA, UNSPECIFIED
[2022-03-13] MEDS: Sodium Chloride 0.9% 1000 ML 1,000 ML IV SCH ×2 (09:55→21:17)
[2022-03-13] MEDS: solu-MEDROL 60 MG, Sterile H2O 10 ml 2 ML IV SCH ×4 (13:33→21:17)
[2022-03-13 13:47] LABS: ABO TYPING A; Antibody Screen NEGATIVE (NEGATIVE); RH TYPING POSITIVE
[2022-03-13 13:49] LABS: CROSS MATCH (PRBC) COMPATIBLE (COMPATIBLE)
[2022-03-13 22:20] LABS: Hematocrit 35.7 % (42-50)
[2022-03-13 22:35] LABS: Hemoglobin 10.7 gm/dl (12.5-18.0)
[2022-03-14 05:12] LABS: Hematocrit 36.3 % (42-50); Hemoglobin 10.8 gm/dl (12.5-18.0); Mean Cell Volume 91.7 fl (78-100); Mean Corpuscular Hemoglobin 27.3 pg (26-32); Mean Corpuscular Hgb Concent. 29.8 g/dl (32-36); Mean Platelet Volume 12.2 fl (7.5-11.0); Platelet Count 139 K/mm3 (150-450); Red Blood Count 3.96 M/mm3 (4.1-5.6); Red Cell Distribution Width 14.5 % (11.5-14.0); White Blood Count 9.2 K/mm3 (4.0-10.5)
[2022-03-14] MEDS: solu-MEDROL 60 MG, Sterile H2O 10 ml 2 ML IV SCH ×8 (05:21→21:53)
[2022-03-14 05:32] LABS: ALBUMIN 2.8 g/dL (3.5-5.0); ALKALINE PHOSPHATASE 45 U/L (38-126); ANION GAP 6.9 MEQ/L (5-15); BLOOD UREA NITROGEN 26 mg/dL (9-20); CHLORIDE 106 mmol/L (98-107); Carbon Dioxide 33 mmol/L (22-30); Creatinine 1 0.59 mg/dL (0.66-1.25); EST GLOMERULAR FILTRATION RATE > 60.0 ML/MIN; Glucose 114 mg/dL (74-106); Potassium 5.2 mmol/L (3.5-5.1); SGOT/AST 31 U/L (17-59); SGPT/ALT 33 U/L (0-50); SODIUM 141 mmol/L (137-145); Total Protein 5.1 g/dL (6.3-8.2)
[2022-03-14 05:50] LABS: Lymphocytes % 2.6 % (24.0-44.0); Neutrophil % 94.3 % (36.0-66.0); Slide Review 1 YES
[2022-03-14] MEDS: DUONEB 0.5-3 MG/3 ml Neb IH SCH ×3 (06:45→19:27)
[2022-03-14] MEDS: ROCEPHIN 1 Gm-D5w 50 ml Bag** 1 G/50 ML IVPB IV SCH (09:07)
[2022-03-14] MEDS: Lopressor 25MG Tab PO SCH ×2 (09:09→21:55)
[2022-03-14] MEDS: ULTRAM 50 MG PO SCH ×4 (09:10→21:55)
[2022-03-14] MEDS: ENOXAPARIN SODIUM SQ SCH (09:10)
[2022-03-14] MEDS: Zithromax 500 MG/ 250 ML NaCl Premix 500 MG/250 ML IVPB IV SCH (10:04)
[2022-03-14] MEDS: Sodium Chloride 0.9% 1000 ML 1,000 ML IV SCH (10:06)
[2022-03-15 05:09] LABS: Absolute Neutrophil Ct (ANC) 8.41 x10^3/uL (1.4-6.9); Basophil (Absolute #) 0 x10^3/uL (0-0.4); Eosinophil (Absolute #) 0 x10^3/uL (0-0.5); Hemoglobin 11.4 g/dL (12.5-18.0); Lymphocytes % 4.2 % (24.0-44.0); Mean Corpuscular Hemoglobin 26.9 pg (26-32); Mean Corpuscular Hgb Concent. 29.2 g/dL (32-36); Monocyte (Absolute #) 0.64 x10^3/uL (0.0-1.3); Monocytes % 6.8 % (0.0-12.0); Neutrophil % 88.7 % (36.0-66.0); Platelet Count 139 x10^3/uL (150-450); Red Blood Count 4.24 x10^6/uL (4.1-5.6); Red Cell Distribution Width 13.9 % (11.5-14.0); White Blood Count 9.5 x10^3/uL (4.0-10.5)
[2022-03-15] MEDS: Sodium Chloride 0.9% 1000 ML 1,000 ML IV SCH (05:34)
[2022-03-15] MEDS: solu-MEDROL 60 MG, Sterile H2O 10 ml 2 ML IV SCH ×6 (05:34→21:05)
[2022-03-15 05:42] LABS: ALBUMIN 2.6 g/dL (3.5-5.0); ALKALINE PHOSPHATASE 44 U/L (38-126); ANION GAP 4.1 MEQ/L (5-15); BLOOD UREA NITROGEN 21 mg/dL (9-20); CHLORIDE 103 mmol/L (98-107); Calcium 7.9 mg/dL (8.4-10.2); Carbon Dioxide 38 mmol/L (22-30); Creatinine 1 0.54 mg/dL (0.66-1.25); EST GLOMERULAR FILTRATION RATE > 60.0 ML/MIN; Glucose 87 mg/dL (74-106); Potassium 4.5 mmol/L (3.5-5.1); SGOT/AST 24 U/L (17-59); SGPT/ALT 29 U/L (0-50); SODIUM 141 mmol/L (137-145); Total Protein 4.9 g/dL (6.3-8.2)
[2022-03-15] MEDS: DUONEB 0.5-3 MG/3 ml Neb IH SCH ×3 (07:00→19:37)
[2022-03-15 08:19] LABS: Slide Review 1 YES
[2022-03-15] MEDS: Lopressor 25MG Tab PO SCH ×2 (09:17→21:05)
[2022-03-15] MEDS: ENOXAPARIN SODIUM SQ SCH (09:17)
[2022-03-15] MEDS: ULTRAM 50 MG PO SCH ×4 (09:17→21:05)
[2022-03-15] MEDS: ROCEPHIN 1 Gm-D5w 50 ml Bag** 1 G/50 ML IVPB IV SCH (09:18)
[2022-03-15] MEDS: Zithromax 500 MG/ 250 ML NaCl Premix 500 MG/250 ML IVPB IV SCH (10:30)
[2022-03-16 04:42] LABS: Hematocrit 38.9 % (42-50); Hemoglobin 11.5 g/dL (12.5-18.0); Mean Cell Volume 90.7 fL (78-100); Mean Corpuscular Hemoglobin 26.8 pg (26-32); Mean Corpuscular Hgb Concent. 29.6 g/dL (32-36); Mean Platelet Volume 11.9 fL (7.5-11.0); Platelet Count 153 x10^3/uL (150-450); Red Blood Count 4.29 x10^6/uL (4.1-5.6); Red Cell Distribution Width 13.6 % (11.5-14.0); White Blood Count 9.1 x10^3/uL (4.0-10.5)
[2022-03-16 05:02] LABS: ALBUMIN 2.5 g/dL (3.5-5.0); ALKALINE PHOSPHATASE 45 U/L (38-126); ANION GAP 3.1 MEQ/L (5-15); BLOOD UREA NITROGEN 17 mg/dL (9-20); CHLORIDE 97 mmol/L (98-107); Calcium 7.7 mg/dL (8.4-10.2); Carbon Dioxide 39 mmol/L (22-30); Creatinine 1 0.45 mg/dL (0.66-1.25); EST GLOMERULAR FILTRATION RATE > 60.0 ML/MIN; Glucose 120 mg/dL (74-106); Potassium 4.9 mmol/L (3.5-5.1); SGOT/AST 23 U/L (17-59); SGPT/ALT 27 U/L (0-50); SODIUM 134 mmol/L (137-145); Total Protein 4.9 g/dL (6.3-8.2)
[2022-03-16] MEDS: solu-MEDROL 60 MG, Sterile H2O 10 ml 2 ML IV SCH ×2 (05:25)
[2022-03-16 05:29] LABS: Lymphocytes 1 % (24-44); Monocyte 1 % (0.0-12.0); Platelet Estimate NORMAL (NORMAL); Total Cells Counted 100
[2022-03-16] MEDS: DUONEB 0.5-3 MG/3 ml Neb IH SCH (06:57)
[2022-03-16 07:12] VITALS: BP 164/74; PULSE 58; O2SAT 94
[2022-03-16] MEDS: ULTRAM 50 MG PO SCH (08:54)
[2022-03-16] MEDS: ENOXAPARIN SODIUM SQ SCH (08:54)
[2022-03-16] MEDS: ROCEPHIN 1 Gm-D5w 50 ml Bag** 1 G/50 ML IVPB IV SCH (08:54)
[2022-03-16] MEDS: Lopressor 25MG Tab PO SCH (08:54)
[2022-03-16] MEDS: Zithromax 500 MG/ 250 ML NaCl Premix 500 MG/250 ML IVPB IV SCH (08:54)
== END 2022-03-16 10:55 | DRG 192 ==
LOC: ED 09:31 → MED SURG 14:56
PROVIDERS: ADMIT Family Medicine; ATTEND Family Medicine
DX: J44.1 Chronic obstructive pulmonary disease with (acute) exacerbation (principal); R09.02 Hypoxemia; R91.8 Other nonspecific abnormal finding of lung field; D64.9 Anemia, unspecified; R73.9 Hyperglycemia, unspecified; E87.5 Hyperkalemia; R00.0 Tachycardia, unspecified; W18.30XA Fall on same level, unspecified, initial encounter; Z72.0 Tobacco use; Z29.9 Encounter for prophylactic measures, unspecified; Z20.828 Contact with and (suspected) exposure to other viral communicable diseases; Z79.899 Other long term (current) drug therapy
CPT/HCPCS: 0241U; 36000; 36415; 36430; 71045; 71260; 80048; 80053; 81015; 82728; 83036; 83540; 83550; 83735; 83880; 84132; 84134; 84484; 85014; 85018; 85025; 85379; 85610; 86850; 86900; 86901; 86922; 87086; 93005; 93041; 94640; 94667; 94668; 94760; 96365; 96374; 99285; 99291; J0456; J0696; J1650; J2930; P9016; 97110-GP; A9270-GY

== ENCOUNTER 2022-04-30 06:45 | Emergency (ER) | payer MEDICARE ==
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
--- NOTE | 2022-04-30 07:31 | XRAY ---
Indication: Pain following fall, left greater than right. Comparison: None AP pelvis and 2 view left/right hip demonstrates nondisplaced bilateral intertrochanteric fractures. Incidental osteopenia, lower lumbar degenerative changes, and prostate macrocalcifications.
[2022-04-30] MEDS ORDERED: Zofran 4 MG/2 ML VIAL IV ONE (07:59)
[2022-04-30] MEDS ORDERED: MORPHINE SULFATE 2 MG INJ IV ONE (07:59)
[2022-04-30] MEDS ORDERED: Sodium Chloride 0.9% 1000 ML 1,000 ML IV SCH (08:00)
[2022-04-30] MEDS ORDERED: MORPHINE SULFATE 2 MG INJ ONE (08:01)
[2022-04-30] MEDS ORDERED: Sodium Chloride 0.9% 1000 ML 1,000 ML ONE (08:01)
[2022-04-30] MEDS ORDERED: Zofran 4 MG/2 ML VIAL ONE (08:01)
[2022-04-30 08:17] VITALS: BP 149/74; PULSE 69; O2SAT 99
== END 2022-04-30 08:45 | disposition short-term general hospital (02) ==
LOC: ED 06:45
DX: S72.145A Nondisplaced intertrochanteric fracture of left femur, initial encounter for closed fracture (principal); S72.144A Nondisplaced intertrochanteric fracture of right femur, initial encounter for closed fracture; W01.10XA Fall on same level from slipping, tripping and stumbling with subsequent striking against unspecified object, initial encounter; Y93.01 Activity, walking, marching and hiking; Y92.129 Unspecified place in nursing home as the place of occurrence of the external cause; M25.552 Pain in left hip; J44.9 Chronic obstructive pulmonary disease, unspecified; Z99.81 Dependence on supplemental oxygen; Z72.0 Tobacco use; Z79.52 Long term (current) use of systemic steroids; Z79.899 Other long term (current) drug therapy
CPT/HCPCS: 36000; 73522; 96374; 96375; 99284; J2270; J2405

== ENCOUNTER 2023-04-25 13:29 | Emergency (ER) | payer MEDICARE ==
--- NOTE | 2023-04-25 13:54 | XRAY ---
Indication: Cough. Comparison: March 10, 2022 Portable chest again hyperinflated and clear. Heart not enlarged. Bony thorax intact again with osteopenia, degenerative changes, and old bilateral rib fractures. Impression: Continued nonacute chest with chronic features.
[2023-04-25 14:03] LABS: Absolute Neutrophil Ct (ANC) 8.37 x10^3/uL (1.4-6.9); BASOPHIL % 0.2 % (0.0-0.4); Basophil (Absolute #) 0.02 x10^3/uL (0-0.4); Eosinophil % 0.3 % (0.00-5.0); Eosinophil (Absolute #) 0.03 x10^3/uL (0-0.5); Hematocrit 50.2 % (42-50); Hemoglobin 15.5 g/dL (12.5-18.0); IMMATURE GRAN # 0.06 x10^3u/L (0.00-0.03); IMMATURE GRAN % 0.6 % (0.00-0.4); Lymphocyte (Absolute #) 0.56 x10^3/uL (1.0-4.6); Mean Cell Volume 104.6 fL (78-100); Mean Corpuscular Hemoglobin 32.3 pg (26-32); Mean Corpuscular Hgb Concent. 30.9 g/dL (32-36); Mean Platelet Volume 10.9 fL (7.5-11.0); Monocyte (Absolute #) 0.27 x10^3/uL (0.0-1.3); Monocytes % 2.9 % (0.0-12.0); Platelet Count 193 x10^3/uL (150-450); Red Cell Distribution Width 13.1 % (11.5-14.0); White Blood Count 9.3 x10^3/uL (4.0-10.5)
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
[2023-04-25 14:15] LABS: INR 0.9 (0.8-3.0); PROTIME 9.9 SECONDS (9.4-12.5); PTT 27.3 SECONDS (25.1-36.5)
[2023-04-25 14:18] VITALS: PULSE 66
[2023-04-25 14:19] LABS: A-aADO2 66; ABG HEMOGLOBIN 15.4; ABG POTASSIUM 4.8 (3.5-5.1); ARTERIAL BLD GAS O2 SATURATION 97.7 % (95-100); ARTERIAL BLOOD GAS BASE EXCESS 15.1 (-2.0-2.0); ARTERIAL BLOOD GAS FIO2 32 %; ARTERIAL BLOOD GAS PCO2 69 mmHg (35-45); ARTERIAL BLOOD GAS PO2 76 mmHg (75-100); ARTERIAL BLOOD GAS pH 7.41 (7.35-7.45); CARBOXYHEMOGLOBIN 2.1 % THgb (0.0-6.9); HCO3- 43.7 (22-28); HGB O2 SAT 94.8 g/dF (94-100); Methhemoglobin 0.9 % (1.4-1.5); paO2 pAO1 0.54
[2023-04-25 14:20] LABS: ABG SITE LEFT RADIAL; ALLEN TEST OK? YES
[2023-04-25 14:23] LABS: ALBUMIN 3.9 g/dL (3.5-5.0); ALKALINE PHOSPHATASE 64 U/L (38-126); BLOOD UREA NITROGEN 38 mg/dL (9-20); CHLORIDE 96 mmol/L (98-107); Carbon Dioxide 38 mmol/L (22-30); Creatinine 1 1.09 mg/dL (0.66-1.25); EST GLOMERULAR FILTRATION RATE > 60.0 ML/MIN; Glucose 151 mg/dL (74-106); NT PRO BNPII 1400 pg/mL (<300); Potassium 4.8 mmol/L (3.5-5.1); SGOT/AST 28 U/L (17-59); SGPT/ALT 28 U/L (0-50); SODIUM 144 mmol/L (137-145); Total Protein 6.9 g/dL (6.3-8.2)
[2023-04-25 14:31] LABS: ANION GAP 14.8 MEQ/L (5-15)
[2023-04-25] MEDS ORDERED: DUONEB 0.5-3 MG/3 ml Neb IH ONE ×2 (14:34→14:38)
[2023-04-25 14:37] LABS: INFLUENZA A NEGATIVE (NEGATIVE); INFLUENZA B NEGATIVE (NEGATIVE); RESPIRATORY SYNCTIAL VIRUS NEGATIVE (NEGATIVE); SARS-CoV-2 Xpert Express NEGATIVE (NEGATIVE)
[2023-04-25] MEDS ORDERED: solu-MEDROL 125 MG, Sterile H2O 10 ml 2 ML IV ONE ×2 (14:54)
[2023-04-25] MEDS ORDERED: solu-MEDROL ONE (15:01)
[2023-04-25] MEDS ORDERED: Sterile H2O 10 ml IJ ONE (15:01)
[2023-04-25 15:03] LABS: Slide Review 1 YES
[2023-04-25 15:23] VITALS: O2SAT 95
[2023-04-25 15:34] VITALS: BP 128/63
== END 2023-04-25 15:43 | disposition home or self-care (01) ==
LOC: ED 13:29
DX: J44.9 Chronic obstructive pulmonary disease, unspecified (principal); Z79.01 Long term (current) use of anticoagulants; Z79.899 Other long term (current) drug therapy; Z72.0 Tobacco use; Z20.828 Contact with and (suspected) exposure to other viral communicable diseases
CPT/HCPCS: 0241U; 36415; 36600; 71045; 80053; 82375; 82803; 83605; 83880; 84484; 85025; 85610; 85730; 93005; 94640; 96374; 99284; J2930; A9270-GY

== ENCOUNTER 2023-06-22 01:06 | Emergency (ER) | payer MEDICARE ==
[2023-06-22] MEDS ORDERED: SUBLIMAZE 100 MCG/2 ML ONE (01:45)
[2023-06-22] MEDS ORDERED: Zofran 4 MG/2 ML VIAL ONE (01:45)
[2023-06-22] MEDS ORDERED: LOPRESSOR INJECTION IV ONE (02:41)
[2023-06-22 05:28] LABS: Hematocrit 46.6 % (42-50); Hemoglobin 13.9 g/dL (12.5-18.0); Mean Cell Volume 107.1 fL (78-100); Mean Corpuscular Hgb Concent. 29.8 g/dL (32-36); Mean Platelet Volume 10.5 fL (7.5-11.0); Platelet Count 223 x10^3/uL (150-450); Red Blood Count 4.35 x10^6/uL (4.1-5.6); Red Cell Distribution Width 13.6 % (11.5-14.0); White Blood Count 7.2 x10^3/uL (4.0-10.5)
[2023-06-22 05:29] LABS: ALBUMIN 3.5 g/dL (3.5-5.0); ALKALINE PHOSPHATASE 83 U/L (38-126); BLOOD UREA NITROGEN 31 mg/dL (9-20); CHLORIDE 95 mmol/L (98-107); Calcium 8.4 mg/dL (8.4-10.2); Creatinine 1 0.84 mg/dL (0.66-1.25); EST GLOMERULAR FILTRATION RATE > 60.0 ML/MIN; Glucose 118 mg/dL (74-106); MAGNESIUM 2.4 mg/dL (1.6-2.3); Potassium 4.2 mmol/L (3.5-5.1); SGOT/AST 26 U/L (17-59); SGPT/ALT 26 U/L (0-50); SODIUM 142 mmol/L (137-145); TROPONIN < 0.012 ng/mL (0.000-0.034); Total Protein 5.9 g/dL (6.3-8.2)
[2023-06-22 05:31] LABS: Carbon Dioxide 43 mmol/L (22-30); NT PRO BNPII 305 pg/mL (<300)
[2023-06-22 05:33] LABS: ANION GAP 8.2 MEQ/L (5-15)
--- NOTE | 2023-06-22 08:40 | XRAY ---
CLINICAL HISTORY:FALL COMPARISON:None. TECHNIQUES:Axial sections of the CT head were obtained without the administration of intravenous contrast. Reconstructed coronal and sagittal images were also acquired. FINDINGS: Age-related brain involutional changes with prominent ventricular system, cortical sulci, and extra-axial CSF spaces. Exaggerated white matter hypodensity denoting chronic ischemia with bilateral basal ganglia focal hypodense areas of CSF-like density larger on the right side, likely old infarcts. A small right frontal extra-axial calcified lesion measures about 0.8 x 0.7 cm with no mass effect, likely a small meningioma. Amaro-white matter differentiation is maintained. No midline shifts or deformity. No intracerebral or extra axial hematoma. Normal CT appearance of the posterior fossa structures namely the cerebellar hemispheres, brainstem, and cerebellar peduncles. The IACs are unremarkable. The cerebellopontine angles are clear. The osseous structures show no fractures. occipital bone lytic areas, likely arachnoid granulations. Degenerative changes at the visualized atlantoaxial articulation. IMPRESSION: 1. No skull fractures or recent intra-cranial hematoma. 2. 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 3. Small right frontal meningioma. Electronically Signed by: Shara Rincon MD. (06/22/2023 03:02:52 411 DIRECTORY ASSISTANCE OPERATOR)
--- NOTE | 2023-06-22 08:45 | XRAY ---
CLINICAL HISTORY:FALL COMPARISON:None. TECHNIQUES:Thin axial CT of the cervical spine was performed with sagittal and coronal reconstructions without intravenous contrast administration. FINDINGS: Changes of cervical spine degeneration in the form of exaggeration of normal cervical lordosis, anterior marginal and unco vertebral osteophytes (at multiple levels) and reduction in intervertebral disc spaces and end plate changes at multiple levels. Alignment is normal. Osseous structures show no fracture. The vertebral bodies are normal in height. No lytic or sclerotic bone lesion. Disc bulges are seen at multiple levels. IMPRESSION: Degenerative changes of cervical spine. No fracture is seen in the present study. Electronically Signed by: Shara Rincon MD. (06/22/2023 03:03:30 [employer])
--- NOTE | 2023-06-22 08:47 | XRAY ---
CLINICAL HISTORY:FALL COMPARISON:None. TECHNIQUES:Spiral axial continuous cuts were taken through the chest with multiplanar reformatting and without contrast administration. FINDINGS: Bilateral lung apex mild scarring with left upper lung lobe subpleural spiculated nodule, likely sequelae of old granulomatous infection. Bilateral lung emphysematous changes more at the upper lung lobes. Right lower lung lobe atelectatic band with posterior subpleural prominent pulmonary reticularity. Atheromatous calcifications of the thoracic aorta and coronary arteries. No evidence of suspicious nodules, masses, or consolidation. No significant hilar or mediastinal lymph antonino enlargement. Normal cardiac size and shape with no pericardial effusion. The visualized pleural sacs, chest wall, and axillary spaces display normal appearance. Bone window settings showed: Compression fracture and wedging of T4 vertebral body with mild retropulsion posterior upper vertebral endplate indenting the underlying CSF space. Multiple left-side rib fractures (likely old). Reduced height of L1 vertebral body (likely old). Osteopenia and spondylotic changes. Scanned upper abdominal cuts showing hepatic hypodense focal lesions, probably cysts. IMPRESSION: No mediastinal or lung injury on a non-contrast basis. No hemothorax or pneumothorax. Compression fracture and wedging of T4 vertebral body (likely old) with mild retropulsion posterior upper vertebral endplate indenting the underlying CSF space. Multiple left-side rib fractures (likely old). Reduced height of L1 vertebral body (likely old). Bilateral lung apex mild scarring with left upper lung lobe subpleural spiculated nodule, likely sequelae of old granulomatous infection, follow-up is recommended. Bilateral lung emphysematous changes more at the upper lung lobes. Scanned upper abdominal cuts showing hepatic hypodense focal lesions, probably cysts, U/S correlation is recommended. Electronically Signed by: Shara Rincon MD. (06/22/2023 03:46:32 ENERGY TRADER)
--- NOTE | 2023-06-22 09:21 | XRAY ---
Indication: Pain following fall. Comparison: None 3 view right elbow demonstrates osteopenia and tiny spurring olecranon process. No other bony, articular, or soft tissue abnormalities.
== END 2023-06-22 08:20 | disposition home or self-care (01) ==
LOC: ED 01:06
DX: S00.03XA Contusion of scalp, initial encounter (principal); S50.02XA Contusion of left elbow, initial encounter; S39.012A Strain of muscle, fascia and tendon of lower back, initial encounter; W06.XXXA Fall from bed, initial encounter; M54.2 Cervicalgia; I10 Essential (primary) hypertension; Z79.01 Long term (current) use of anticoagulants; Z79.52 Long term (current) use of systemic steroids; Z79.899 Other long term (current) drug therapy
CPT/HCPCS: 36415; 70450; 71250; 72125; 73080; 80053; 83735; 83880; 84484; 85027; 96374; 99284; J2405; J3010

== ENCOUNTER 2023-06-25 10:52 | Emergency (ER) | payer MEDICARE ==
[2023-06-25] MEDS ORDERED: PROVENTIL 2.5 MG/3 ML NEB IH ONE ×2 (10:57)
[2023-06-25 11:10] VITALS: O2SAT 99
[2023-06-25 11:24] VITALS: TEMP 98
[2023-06-25 11:30] LABS: BASOPHIL % 0.1 % (0.0-0.4); Basophil (Absolute #) 0.01 x10^3/uL (0-0.4); Eosinophil % 0.3 % (0.00-5.0); Eosinophil (Absolute #) 0.03 x10^3/uL (0-0.5); Hematocrit 50.3 % (42-50); Hemoglobin 15.1 g/dL (12.5-18.0); IMMATURE GRAN # 0.04 x10^3u/L (0.00-0.03); IMMATURE GRAN % 0.4 % (0.00-0.4); Lymphocytes % 4.9 % (24.0-44.0); Mean Cell Volume 105.5 fL (78-100); Mean Corpuscular Hemoglobin 31.7 pg (26-32); Mean Platelet Volume 11.6 fL (7.5-11.0); Monocyte (Absolute #) 0.62 x10^3/uL (0.0-1.3); Monocytes % 6.1 % (0.0-12.0); NUCLEATED RBC # 0.03 x10^3u/L (0.00-0.01); NUCLEATED RBC % 0.3 % (0.00-0.1); Neutrophil % 88.2 % (36.0-66.0); Platelet Count 158 x10^3/uL (150-450); Red Blood Count 4.77 x10^6/uL (4.1-5.6); Red Cell Distribution Width 13.8 % (11.5-14.0); White Blood Count 10.2 x10^3/uL (4.0-10.5)
--- NOTE | 2023-06-25 11:31 | XRAY ---
Indication: Dyspnea. History COPD. Comparison: April 25, 2023 Portable chest again hyperinflated with new subtle right infrahilar infiltrate versus atelectasis. Remaining heart and lungs unremarkable. Bony thorax intact again with osteopenia, degenerative changes, and old bilateral rib fractures.
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
[2023-06-25 11:58] LABS: INR 1.17 (0.8-3.0); PROTIME 12.6 SECONDS (9.4-12.5); PTT 29.1 SECONDS (25.1-36.5)
[2023-06-25 12:00] LABS: ALBUMIN 3.6 g/dL (3.5-5.0); BILIRUBIN,TOTAL 0.9 mg/dL (0.2-1.3); Calcium 8.6 mg/dL (8.4-10.2); Creatinine 1 2.27 mg/dL (0.66-1.25); EST GLOMERULAR FILTRATION RATE 29.1 ML/MIN; Potassium 5.3 mmol/L (3.5-5.1); Total Protein 6.1 g/dL (6.3-8.2)
[2023-06-25 12:18] LABS: INFLUENZA A NEGATIVE (NEGATIVE); INFLUENZA B NEGATIVE (NEGATIVE); RESPIRATORY SYNCTIAL VIRUS NEGATIVE (NEGATIVE); SARS-CoV-2 Xpert Express NEGATIVE (NEGATIVE)
[2023-06-25 12:34] LABS: ANION GAP 12.3 MEQ/L (5-15)
[2023-06-25] MEDS ORDERED: BABY ASPIRIN 81 MG CHEW PO ONE (12:59)
[2023-06-25] MEDS ORDERED: ROCEPHIN 1 Gm-D5w 50 ml Bag** 1 G/50 ML IVPB IV STA (13:01)
[2023-06-25] MEDS ORDERED: Sodium Chloride 0.9% 500 ML 500 ML IV ONE ×2 (13:02→13:11)
[2023-06-25] MEDS ORDERED: BABY ASPIRIN 81 MG CHEW ONE (13:10)
[2023-06-25] MEDS ORDERED: ROCEPHIN 1 Gm-D5w 50 ml Bag** 1 G/50 ML IVPB IV ONE (13:11)
[2023-06-25 13:21] LABS: Slide Review 1 YES
[2023-06-25 13:27] VITALS: BP 126/65; PULSE 104; RESP 20
== END 2023-06-25 14:10 | disposition short-term general hospital (02) ==
LOC: ED 10:52
DX: I21.4 Non-ST elevation (NSTEMI) myocardial infarction (principal); J18.9 Pneumonia, unspecified organism; J44.9 Chronic obstructive pulmonary disease, unspecified; N19 Unspecified kidney failure; R06.00 Dyspnea, unspecified; Z79.01 Long term (current) use of anticoagulants; Z79.52 Long term (current) use of systemic steroids; Z79.899 Other long term (current) drug therapy; Z72.0 Tobacco use; Z99.81 Dependence on supplemental oxygen; Z20.828 Contact with and (suspected) exposure to other viral communicable diseases
CPT/HCPCS: 0241U; 36000; 36415; 71045; 80053; 83605; 83880; 84484; 85025; 85610; 85730; 87040; 93005; 93041; 94640; 96365; 99285; 99291; 99292; J0696; J7609; A9270-GY

== ENCOUNTER 2023-12-16 14:42 | Emergency (ER) | payer MEDICARE ==
[2023-12-16 14:59] VITALS: TEMP 98.2
[2023-12-16 15:30] LABS: Absolute Neutrophil Ct (ANC) 13.94 x10^3/uL (1.4-6.9); BASOPHIL % 0.1 % (0.0-0.4); Basophil (Absolute #) 0.02 x10^3/uL (0-0.4); Eosinophil (Absolute #) 0 x10^3/uL (0-0.5); Hematocrit 41.5 % (42-50); Hemoglobin 11.8 g/dL (12.5-18.0); IMMATURE GRAN # 0.08 x10^3u/L (0.00-0.03); IMMATURE GRAN % 0.5 % (0.00-0.4); Lymphocyte (Absolute #) 0.13 x10^3/uL (1.0-4.6); Lymphocytes % 0.9 % (24.0-44.0); Mean Cell Volume 104.3 fL (78-100); Mean Corpuscular Hemoglobin 29.6 pg (26-32); Mean Corpuscular Hgb Concent. 28.4 g/dL (32-36); Mean Platelet Volume 12.1 fL (7.5-11.0); Monocytes % 6.6 % (0.0-12.0); NUCLEATED RBC # 0.08 x10^3u/L (0.00-0.01); NUCLEATED RBC % 0.5 % (0.00-0.1); Neutrophil % 91.9 % (36.0-66.0); Platelet Count 150 x10^3/uL (150-450); Red Blood Count 3.98 x10^6/uL (4.1-5.6); Red Cell Distribution Width 17.3 % (11.5-14.0); White Blood Count 15.2 x10^3/uL (4.0-10.5)
[2023-12-16 15:45] LABS: ALBUMIN 3.3 g/dL (3.5-5.0); ANION GAP 5.3 MEQ/L (5-15); BILIRUBIN,TOTAL 0.9 mg/dL (0.2-1.3); Creatinine 1 1.24 mg/dL (0.66-1.25); EST GLOMERULAR FILTRATION RATE 55.6 ML/MIN; Potassium 5.4 mmol/L (3.5-5.1); Total Protein 5.7 g/dL (6.3-8.2)
[2023-12-16 15:53] VITALS: O2SAT 97
[2023-12-16] MEDS ORDERED: ROCEPHIN 1 GM / 100 ML NaCl 1 GM/100 ML IVPB IV ONE (15:54)
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
[2023-12-16] MEDS: ROCEPHIN 1 GM / 100 ML NaCl 1 GM/100 ML IVPB IV ONE (15:57)
[2023-12-16 16:05] VITALS: BP 123/59; PULSE 64
[2023-12-16 21:16] LABS: Slide Review 1 YES
--- NOTE | 2023-12-18 15:03 | XRAY ---
CLINICAL HISTORY: fall, Patient on anticoegulation TECHNIQUE: Axial sections of the CT head were obtained without the administration of intravenous contrast. Reconstructed coronal and sagittal images were also acquired. COMPARISON: 06/22/2023 FINDINGS: Age-related brain involutional changes with prominent ventricular system, cortical sulci, and extra-axial CSF spaces. Still seen multiple white matter hypodensity denoting chronic ischemia with bilateral basal ganglia focal hypodense areas of CSF-like density larger on the right side, likely old infarcts. A small right frontal extra-axial calcified lesion measures about 0.8 x 0.7 cm with no mass effect, likely a small meningioma. Amaro-white matter differentiation is maintained. No midline shifts or deformity. No intracerebral or extra axial hematoma. Normal CT appearance of the posterior fossa structures namely the cerebellar hemispheres, brainstem, and cerebellar peduncles. The IACs are unremarkable. The cerebellopontine angles are clear. The osseous structures show no fractures. occipital bone lytic areas, likely arachnoid granulations. Degenerative changes at the visualized atlantoaxial articulation. IMPRESSION: No significant interval changes as compared to the previous CT dated 06/22/2023. No acute vascular insult or recent intra-cranial hematoma. 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 Small right frontal meningioma. Electronically Signed by: Shara Rincon MD. (12/16/2023 15:16:32 TANKER SERVICE ATTENDANT) ADDENDUM: 12/16/2023 16:16:32 EST There is a minimal displaced left nasal bone fracture. Electronically Signed by: Shara Rincon MD. (12/16/2023 15:16:32 TANKER SERVICE ATTENDANT)
== END 2023-12-16 18:47 | disposition home or self-care (01) ==
LOC: ED 14:42
DX: Z04.3 Encounter for examination and observation following other accident (principal); S02.2XXA Fracture of nasal bones, initial encounter for closed fracture; W19.XXXA Unspecified fall, initial encounter; R74.8 Abnormal levels of other serum enzymes; R91.8 Other nonspecific abnormal finding of lung field; J44.9 Chronic obstructive pulmonary disease, unspecified; I10 Essential (primary) hypertension; Z79.01 Long term (current) use of anticoagulants; Z79.899 Other long term (current) drug therapy
CPT/HCPCS: 36000; 36415; 70450; 80053; 85025; 99284; J0696

== ENCOUNTER 2023-12-19 17:23 | Observation (INO) | payer MEDICARE ==
[2023-12-19 18:14] LABS: Absolute Neutrophil Ct (ANC) 12.61 x10^3/uL (1.4-6.9); BASOPHIL % 0.1 % (0.0-0.4); Basophil (Absolute #) 0.02 x10^3/uL (0-0.4); Eosinophil (Absolute #) 0 x10^3/uL (0-0.5); Hematocrit 40.3 % (42-50); Hemoglobin 11.3 g/dL (12.5-18.0); IMMATURE GRAN # 0.13 x10^3u/L (0.00-0.03); IMMATURE GRAN % 0.9 % (0.00-0.4); Lymphocyte (Absolute #) 0.22 x10^3/uL (1.0-4.6); Lymphocytes % 1.5 % (24.0-44.0); Mean Cell Volume 102.5 fL (78-100); Mean Corpuscular Hemoglobin 28.8 pg (26-32); Mean Platelet Volume 11.5 fL (7.5-11.0); Monocyte (Absolute #) 1.28 x10^3/uL (0.0-1.3); NUCLEATED RBC # 0.17 x10^3u/L (0.00-0.01); NUCLEATED RBC % 1.2 % (0.00-0.1); Neutrophil % 88.5 % (36.0-66.0); Platelet Count 270 x10^3/uL (150-450); Red Blood Count 3.93 x10^6/uL (4.1-5.6); Red Cell Distribution Width 17.1 % (11.5-14.0); White Blood Count 14.3 x10^3/uL (4.0-10.5)
[2023-12-19 18:55] LABS: ALBUMIN 3.3 g/dL (3.5-5.0); BILIRUBIN,TOTAL 0.7 mg/dL (0.2-1.3); Calcium 8.4 mg/dL (8.4-10.2); Creatinine 1 1.49 mg/dL (0.66-1.25); EST GLOMERULAR FILTRATION RATE 44.6 ML/MIN; Potassium 5.6 mmol/L (3.5-5.1); TSH, 3RD Generation 1.79 mIU/L (0.47-4.68); Total Protein 5.8 g/dL (6.3-8.2)
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
[2023-12-19 18:57] LABS: ANION GAP 9.6 MEQ/L (5-15); Slide Review 1 YES
--- NOTE | 2023-12-19 20:20 | XRAY ---
Indication: Confusion. Status post fall. Multiple contiguous axial images obtained through the head without contrast. Stable age-appropriate global atrophy, moderate periventricular degenerative micro-ischemia bilaterally, and small old infarct right basal ganglia. Right vertex demonstrates stable subcentimeter calcified meningioma. No acute intracranial hemorrhage, abnormal extra-axial fluid collection, or mass effect. Fourth ventricle is midline without hydrocephalus. Bony calvarium intact. Visualized paranasal sinuses and mastoid air cells are clear. Impression: No change compared to ER CT exam 3 days ago. 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
--- NOTE | 2023-12-19 20:21 | XRAY ---
Indication: Confusion. Status post fall. Multiple contiguous images obtained through the cervical spine. Sagittal and coronal reformatted images obtained. Comparison: June 22, 2023 Osseous structures remain demineralized. Axial images again negative for acute fracture, suspicious bony lesions, or spinal canal stenosis. Stable mild atlantoaxial degenerative changes and minimal multilevel bilateral degenerative facet arthropathy. Sagittal and coronal reformatted images again demonstrates normal alignment. New subacute appearing T3 superior endplate fracture with 25-50% height loss. Stable remote T4 compression fracture. No subluxation or jumped facet. Normal appearing craniocervical junction. Visualized noncontrasted soft tissues again demonstrates moderate bilateral carotid calcifications. Lung apices again there is is extensive pulmonary emphysema. New incompletely visualized biapical pleural effusions. Impression: 1. New subacute appearing T3 superior endplate fracture. 2. Stable osteopenia, multilevel degenerative changes, and remote T4 compression fracture. 3. Again chronic findings including bilateral carotid calcifications and extensive pulmonary emphysema. 4. New incompletely visualized biapical pleural effusions.
--- NOTE | 2023-12-19 20:23 | XRAY ---
Indication: Status post fall. Comparison: July 28, 2023 Portable apical lordotic chest again hyperinflated. There remains moderate right mid to lower lung infiltrate/atelectasis/effusion. New mild left base infiltrate/atelectasis/effusion. Heart not enlarged. Bony thorax intact again with osteopenia and degenerative changes.
[2023-12-19] MEDS ORDERED: ROCEPHIN 2 Gm-D5w 50ML BAG** 2 G/50 ML IVPB IV ONE (21:04)
[2023-12-19] MEDS ORDERED: Zithromax 500 MG/ 250 ML NaCl Premix 500 MG/250 ML IVPB IV ONE (21:04)
[2023-12-19] MEDS: ROCEPHIN 2 Gm-D5w 50ML BAG** 2 G/50 ML IVPB IV STA (21:09)
[2023-12-19] MEDS ORDERED: TYLENOL 325 MG PO PRN (21:24)
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
[2023-12-19 21:40] LABS: Appearance Turbid (Clear); Bilirubin Small (Negative); Blood Moderate (Negative); Glucose, Urine Negative (Negative); Hyaline Casts 0-2 /LPF (0-2); Ketones Negative (Negative); Leukocyte Esterase Large (Negative); Nitrite Negative (Negative); Ph 5.5 (4.6-8.0); Protein,Urine Dip 100 (Negative); RBC >100 /HPF (0-5); Specific Gravity 1.015 (1.005-1.030); Urobilinogen 0.2 mg/dL (0.2)
[2023-12-19 21:41] LABS: ADD URINE CULTURE? ORDERED SEPARATELY (NO); Bacteria Rare /HPF (None Seen); Epithelial Cells Few /HPF (None Seen)
[2023-12-19] MEDS: Zithromax 500 MG/ 250 ML NaCl Premix 500 MG/250 ML IVPB IV STA (21:43)
[2023-12-19] MEDS: VENTOLIN COMMON CANISTER IH SCH (23:10)
[2023-12-20] MEDS: ROCEPHIN 1 GM / 100 ML NaCl 1 GM/100 ML IVPB IV SCH (01:19)
[2023-12-20] MEDS: ELIQUIS 2.5 MG TABLET PO SCH (01:21)
[2023-12-20] MEDS: Sodium Chloride 0.9% 1000 ML 1,000 ML IV SCH (01:24)
[2023-12-20 03:24] LABS: Hematocrit 37.5 % (42-50); Hemoglobin 10.5 g/dL (12.5-18.0); Mean Cell Volume 104.2 fL (78-100); Mean Corpuscular Hemoglobin 29.2 pg (26-32); Mean Platelet Volume 11.2 fL (7.5-11.0); Platelet Count 232 x10^3/uL (150-450); Red Cell Distribution Width 17.2 % (11.5-14.0); White Blood Count 14.1 x10^3/uL (4.0-10.5)
[2023-12-20 03:30] LABS: ALBUMIN 2.6 g/dL (3.5-5.0); BILIRUBIN,TOTAL 0.5 mg/dL (0.2-1.3); Creatinine 1 1.38 mg/dL (0.66-1.25); EST GLOMERULAR FILTRATION RATE 48.9 ML/MIN; Potassium 5.6 mmol/L (3.5-5.1); Total Protein 4.7 g/dL (6.3-8.2)
[2023-12-20 03:38] LABS: ANION GAP 4.6 MEQ/L (5-15)
[2023-12-20] MEDS: Lasix 20 MG/2 ML IV ONE (08:38)
[2023-12-20] MEDS: PROVENTIL 2.5 MG/3 ML NEB IH SCH (08:57)
[2023-12-20 09:16] LABS: A-aADO2 -19; ABG HEMOGLOBIN 11.1; ABG POTASSIUM 5.5 (3.5-5.1); ABG SITE rt brach; ARTERIAL BLD GAS O2 SATURATION 99.2 % (95-100); ARTERIAL BLOOD GAS BASE EXCESS 14.9 (-2.0-2.0); ARTERIAL BLOOD GAS FIO2 36 %; ARTERIAL BLOOD GAS PCO2 102 mmHg (35-45); ARTERIAL BLOOD GAS PO2 148 mmHg (75-100); ARTERIAL BLOOD GAS pH 7.26 (7.35-7.45); HCO3- 45.8 (22-28); HGB O2 SAT 96.1 g/dF (94-100); Methhemoglobin 1.1 % (1.4-1.5); paO2 pAO1 1.15
[2023-12-20] MEDS ORDERED: NON-FORMULARY ITEM (Fluticasone/Vilanterol [Breo Ellipta 100-25 Mcg Inhalr] 1 EACH Blst.W. NEB SCH (10:00)
[2023-12-20] MEDS ORDERED: DELTASONE 20 MG PO SCH (10:00)
[2023-12-20 11:49] VITALS: TEMP 96.7
[2023-12-20 12:20] LABS: A-aADO2 99; ABG HEMOGLOBIN 10.5; ABG POTASSIUM 4.8 (3.5-5.1); ARTERIAL BLD GAS O2 SATURATION 92.7 % (95-100); ARTERIAL BLOOD GAS BASE EXCESS 16.7 (-2.0-2.0); ARTERIAL BLOOD GAS FIO2 36 %; ARTERIAL BLOOD GAS PO2 60 mmHg (75-100); ARTERIAL BLOOD GAS pH 7.37 (7.35-7.45); HCO3- 45.1 (22-28); HGB O2 SAT 90.1 g/dF (94-100); Methhemoglobin 0.8 % (1.4-1.5); paO2 pAO1 0.38
[2023-12-20 12:21] LABS: ABG SITE RIGHT BRACHIAL; ARTERIAL BLOOD GAS PCO2 78 mmHg (35-45)
--- NOTE | 2023-12-20 12:57 | XRAY ---
CLINICAL HISTORY: right hip purple TECHNIQUE: X-ray of right hip portable AP and lateral views. COMPARISON: None. FINDINGS: There is no evidence of acute fracture or dislocation. A rest of radiological examination of the hip demonstrates no lytic or sclerotic lesion. Joint space is reduced with mild sclerosis along acetabular margins and osteophyte formation. The cortical margins of the osseous structures are within normal limits. There are no intra-articular or periarticular calcifications. IMPRESSION: 1. There is no evidence of acute fracture or dislocation. 2. Mild degenerative changes at right hip joint. (Disclaimer: "A subtle bone abnormality or fracture may not be readily apparent on x-rays, thus clinical correlation and further imaging including follow-up CT, MRI, or follow-up x-rays are advised as needed"). Electronically Signed by: Shara Rincon MD. (12/20/2023 12:52:33 EST)
[2023-12-20 13:10] LABS: ALBUMIN 2.9 g/dL (3.5-5.0)
--- NOTE | 2023-12-20 13:22 | PCM.DS ---
Discharge Summary Date of Admission: 12/19/23 21:24 Date of Discharge: 12/20/23 Admitting Physician: AYSHA MENON DO Primary Care Provider: ADRIENNE Allergies Allergies No Known Drug Allergies Allergy (Verified 12/16/23 14:59) Hospital Summary - Hospital Course Hospital Course: is a 88 year old male with PMHX of TIA, cataracts, COPD, OA, RA, TBI, and lives in shelter. He was seen in ER on 12/19 sent from [place] here for AMS. He is normally awake and interactive, with baseline dementia, but brought in by [place] for worsening mental status change - not as alert and disoriented. He has fallen a few times at the [place]. Here, imaging shows stable changes in brain, DJD and subacute fracture in cervical vertebrae and a right mid to lower lung lobe infiltrate. So he is admitted for pneumonia. He is also on 2-3Ls NC O2 at home chronically for his COPD. Today he is unresponsive even with sternal rub. ABG completed by RT and placed on Bipap. ABG improved but still requiring bipap . He is becoming more responsive but still not at baseline. MRI of brain ordered. XR right hip ordered for further eval as he has bruising of right hip down right thigh. CT abd/pelvis also ordered as he has multiple falls recently with a recent ER visit prior to this admit. He has chronic indwelling sotelo. He currently has bloody urine with bleeding around tip of penis. K+ elevated at 5.6 and lasix ordered x1. BIENVENIDO has improved. Eliquis stopped as pt is bleeding and unable to take at this time. Pt to tx to higher level of care and has been accepted at [facility]. - Vitals & Intake/Output Vital Signs: Vital Signs Temperature 96.7 F 12/20/23 11:00 Pulse Rate 61 12/20/23 13:00 Respiratory Rate 23 12/20/23 13:00 Blood Pressure 113/49 12/20/23 13:00 O2 Sat by Pulse Oximetry 89 L 12/20/23 13:00 Intake & Output: Intake & Output 12/18/23 12/19/23 12/20/23 12/21/23 11:59 11:59 11:59 11:59 Intake Total 135 0 Output Total 1275 Balance -1140 0 Weight 55.9 kg - Lab Result Diagrams: 12/20/23 03:00 12/20/23 03:00 Lab Results-Last 24 Hrs: Lab Results-Last 24 Hours 12/19/23 12/19/23 12/19/23 Range/Units 17:30 17:30 17:30 WBC 14.3 H (4.0-10.5) x10^3/uL RBC 3.93 L (4.1-5.6) x10^6/uL Hgb 11.3 L (12.5-18.0) g/dL Hct 40.3 L (42-50) % MCV 102.5 H (78-100) fL MCH 28.8 (26-32) pg MCHC 28.0 L (32-36) g/dL RDW 17.1 H (11.5-14.0) % Plt Count 270 (150-450) x10^3/uL MPV 11.5 H (7.5-11.0) fL Gran % 88.5 H (36.0-66.0) % Immature Gran % (Auto) 0.9 H (0.00-0.4) % Nucleat RBC Rel Count 1.2 H (0.00-0.1) % Eos # (Auto) 0 (0-0.5) x10^3/uL Immature Gran # (Auto) 0.13 H (0.00-0.03) x10^3u/L Absolute Lymphs (auto) 0.22 L (1.0-4.6) x10^3/uL Absolute Monos (auto) 1.28 (0.0-1.3) x10^3/uL Absolute Nucleated RBC 0.17 H (0.00-0.01) x10^3u/L Lymphocytes % 1.5 L (24.0-44.0) % Monocytes % 9.0 (0.0-12.0) % Eosinophils % 0.0 (0.00-5.0) % Basophils % 0.1 (0.0-0.4) % Absolute Granulocytes 12.61 H (1.4-6.9) x10^3/uL Basophils # 0.02 (0-0.4) x10^3/uL Puncture Site pCO2 (35-45) mmHg pO2 (75-100) mmHg Base Excess (-2.0-2.0) O2 Saturation (94-100) g/dF ABG pH (7.35-7.45) ABG HCO3 (22-28) ABG O2 Sat (Measured) (95-100) % Alberto Test A-a Gradient a/A Ratio Hemoglobin Carboxyhemoglobin (0.0-6.9) % THgb Methemoglobin (1.4-1.5) % Temperature C POC O2 Flow Rate % Sodium 140 (137-145) mmol/L Potassium 5.6 H (3.5-5.1) mmol/L Chloride 94 L (98-107) mmol/L Carbon Dioxide 42 H (22-30) mmol/L Anion Gap 9.6 (5-15) MEQ/L BUN 64 H (9-20) mg/dL Creatinine 1.49 H (0.66-1.25) mg/dL Estimated GFR 44.6 ML/MIN Glucose 129 H (74-106) mg/dL Lactic Acid (0.4-2.0) Calcium 8.4 (8.4-10.2) mg/dL Magnesium 3.0 H (1.6-2.3) mg/dL Total Bilirubin 0.70 (0.2-1.3) mg/dL AST 41 (17-59) U/L ALT 195 H (0-50) U/L Alkaline Phosphatase 171 H (38-126) U/L Troponin I 0.031 (0.000-0.034) ng/mL NT-Pro-B Natriuret Pep (<300) pg/mL Serum Total Protein 5.8 L (6.3-8.2) g/dL Albumin 3.3 L (3.5-5.0) g/dL TSH 3rd Generation 1.790 (0.47-4.68) mIU/L Urine Color (Yellow) Urine Appearance (Clear) Urine pH (4.6-8.0) Ur Specific [place] (1.005-1.030) Urine Protein (Negative) Urine Glucose (UA) (Negative) mg/dL Urine Ketones (Negative) Urine Blood (Negative) Urine Nitrite (Negative) Urine Bilirubin (Negative) Urine Urobilinogen (0.2) mg/dL Ur Leukocyte Esterase (Negative) U Hyaline Cast (Auto) (0-2) /LPF Urine Microscopic RBC (0-5) /HPF Urine Microscopic WBC (0-5) /HPF Ur Epithelial Cells (None Seen) /HPF Urine Bacteria (None Seen) /HPF Urine Culture Reflexed (NO) Slides for Path Review YES 12/19/23 12/19/23 12/19/23 Range/Units 17:55 21:09 21:35 WBC (4.0-10.5) x10^3/uL RBC (4.1-5.6) x10^6/uL Hgb (12.5-18.0) g/dL Hct (42-50) % MCV (78-100) fL MCH (26-32) pg MCHC (32-36) g/dL RDW (11.5-14.0) % Plt Count (150-450) x10^3/uL MPV (7.5-11.0) fL Gran % (36.0-66.0) % Immature Gran % (Auto) (0.00-0.4) % Nucleat RBC Rel Count (0.00-0.1) % Eos # (Auto) (0-0.5) x10^3/uL Immature Gran # (Auto) (0.00-0.03) x10^3u/L Absolute Lymphs (auto) (1.0-4.6) x10^3/uL Absolute Monos (auto) (0.0-1.3) x10^3/uL Absolute Nucleated RBC (0.00-0.01) x10^3u/L Lymphocytes % (24.0-44.0) % Monocytes % (0.0-12.0) % Eosinophils % (0.00-5.0) % Basophils % (0.0-0.4) % Absolute Granulocytes (1.4-6.9) x10^3/uL Basophils # (0-0.4) x10^3/uL Puncture Site pCO2 (35-45) mmHg pO2 (75-100) mmHg Base Excess (-2.0-2.0) O2 Saturation (94-100) g/dF ABG pH (7.35-7.45) ABG HCO3 (22-28) ABG O2 Sat (Measured) (95-100) % Alberto Test A-a Gradient a/A Ratio Hemoglobin Carboxyhemoglobin (0.0-6.9) % THgb Methemoglobin (1.4-1.5) % Temperature C POC O2 Flow Rate % Sodium (137-145) mmol/L Potassium (3.5-5.1) mmol/L Chloride (98-107) mmol/L Carbon Dioxide (22-30) mmol/L Anion Gap (5-15) MEQ/L BUN (9-20) mg/dL Creatinine (0.66-1.25) mg/dL Estimated GFR ML/MIN Glucose (74-106) mg/dL Lactic Acid 1.6 (0.4-2.0) Calcium (8.4-10.2) mg/dL Magnesium (1.6-2.3) mg/dL Total Bilirubin (0.2-1.3) mg/dL AST (17-59) U/L ALT (0-50) U/L Alkaline Phosphatase (38-126) U/L Troponin I 0.026 (0.000-0.034) ng/mL NT-Pro-B Natriuret Pep (<300) pg/mL Serum Total Protein (6.3-8.2) g/dL Albumin (3.5-5.0) g/dL TSH 3rd Generation (0.47-4.68) mIU/L Urine Color Other A (Yellow) Urine Appearance Turbid A (Clear) Urine pH 5.5 (4.6-8.0) Ur Specific [place] 1.015 (1.005-1.030) Urine Protein 100 A (Negative) Urine Glucose (UA) Negative (Negative) mg/dL Urine Ketones Negative (Negative) Urine Blood Moderate A (Negative) Urine Nitrite Negative (Negative) Urine Bilirubin Small A (Negative) Urine Urobilinogen 0.2 (0.2) mg/dL Ur Leukocyte Esterase Large A (Negative) U Hyaline Cast (Auto) 0-2 (0-2) /LPF Urine Microscopic RBC >100 A (0-5) /HPF Urine Microscopic WBC 11-20 A (0-5) /HPF Ur Epithelial Cells Few (None Seen) /HPF Urine Bacteria Rare A (None Seen) /HPF Urine Culture Reflexed ORDERED SEPARATELY (NO) Slides for Path Review 12/20/23 12/20/23 12/20/23 Range/Units 02:55 02:55 02:55 WBC (4.0-10.5) x10^3/uL RBC (4.1-5.6) x10^6/uL Hgb (12.5-18.0) g/dL Hct (42-50) % MCV (78-100) fL MCH (26-32) pg MCHC (32-36) g/dL RDW (11.5-14.0) % Plt Count (150-450) x10^3/uL MPV (7.5-11.0) fL Gran % (36.0-66.0) % Immature Gran % (Auto) (0.00-0.4) % Nucleat RBC Rel Count (0.00-0.1) % Eos # (Auto) (0-0.5) x10^3/uL Immature Gran # (Auto) (0.00-0.03) x10^3u/L Absolute Lymphs (auto) (1.0-4.6) x10^3/uL Absolute Monos (auto) (0.0-1.3) x10^3/uL Absolute Nucleated RBC (0.00-0.01) x10^3u/L Lymphocytes % (24.0-44.0) % Monocytes % (0.0-12.0) % Eosinophils % (0.00-5.0) % Basophils % (0.0-0.4) % Absolute Granulocytes (1.4-6.9) x10^3/uL Basophils # (0-0.4) x10^3/uL Puncture Site pCO2 (35-45) mmHg pO2 (75-100) mmHg Base Excess (-2.0-2.0) O2 Saturation (94-100) g/dF ABG pH (7.35-7.45) ABG HCO3 (22-28) ABG O2 Sat (Measured) (95-100) % Alberto Test A-a Gradient a/A Ratio Hemoglobin Carboxyhemoglobin (0.0-6.9) % THgb Methemoglobin (1.4-1.5) % Temperature C POC O2 Flow Rate % Sodium (137-145) mmol/L Potassium (3.5-5.1) mmol/L Chloride (98-107) mmol/L Carbon Dioxide (22-30) mmol/L Anion Gap (5-15) MEQ/L BUN (9-20) mg/dL Creatinine (0.66-1.25) mg/dL Estimated GFR ML/MIN Glucose (74-106) mg/dL Lactic Acid (0.4-2.0) Calcium (8.4-10.2) mg/dL Magnesium 3.0 H (1.6-2.3) mg/dL Total Bilirubin (0.2-1.3) mg/dL AST (17-59) U/L ALT (0-50) U/L Alkaline Phosphatase (38-126) U/L Troponin I 0.026 (0.000-0.034) ng/mL NT-Pro-B Natriuret Pep 89095 (<300) pg/mL Serum Total Protein (6.3-8.2) g/dL Albumin (3.5-5.0) g/dL TSH 3rd Generation (0.47-4.68) mIU/L Urine Color (Yellow) Urine Appearance (Clear) Urine pH (4.6-8.0) Ur Specific [place] (1.005-1.030) Urine Protein (Negative) Urine Glucose (UA) (Negative) mg/dL Urine Ketones (Negative) Urine Blood (Negative) Urine Nitrite (Negative) Urine Bilirubin (Negative) Urine Urobilinogen (0.2) mg/dL Ur Leukocyte Esterase (Negative) U Hyaline Cast (Auto) (0-2) /LPF Urine Microscopic RBC (0-5) /HPF Urine Microscopic WBC (0-5) /HPF Ur Epithelial Cells (None Seen) /HPF Urine Bacteria (None Seen) /HPF Urine Culture Reflexed (NO) Slides for Path Review 12/20/23 12/20/23 12/20/23 Range/Units 03:00 03:00 08:19 WBC 14.1 H (4.0-10.5) x10^3/uL RBC 3.60 L (4.1-5.6) x10^6/uL Hgb 10.5 L (12.5-18.0) g/dL Hct 37.5 L (42-50) % MCV 104.2 H (78-100) fL MCH 29.2 (26-32) pg MCHC 28.0 L (32-36) g/dL RDW 17.2 H (11.5-14.0) % Plt Count 232 (150-450) x10^3/uL MPV 11.2 H (7.5-11.0) fL Gran % (36.0-66.0) % Immature Gran % (Auto) (0.00-0.4) % Nucleat RBC Rel Count (0.00-0.1) % Eos # (Auto) (0-0.5) x10^3/uL Immature Gran # (Auto) (0.00-0.03) x10^3u/L Absolute Lymphs (auto) (1.0-4.6) x10^3/uL Absolute Monos (auto) (0.0-1.3) x10^3/uL Absolute Nucleated RBC (0.00-0.01) x10^3u/L Lymphocytes % (24.0-44.0) % Monocytes % (0.0-12.0) % Eosinophils % (0.00-5.0) % Basophils % (0.0-0.4) % Absolute Granulocytes (1.4-6.9) x10^3/uL Basophils # (0-0.4) x10^3/uL Puncture Site pCO2 (35-45) mmHg pO2 (75-100) mmHg Base Excess (-2.0-2.0) O2 Saturation (94-100) g/dF ABG pH (7.35-7.45) ABG HCO3 (22-28) ABG O2 Sat (Measured) (95-100) % Alberto Test A-a Gradient a/A Ratio Hemoglobin Carboxyhemoglobin (0.0-6.9) % THgb Methemoglobin (1.4-1.5) % Temperature C POC O2 Flow Rate % Sodium 139 (137-145) mmol/L Potassium 5.6 H (3.5-5.1) mmol/L Chloride 98 (98-107) mmol/L Carbon Dioxide 42 H (22-30) mmol/L Anion Gap 4.6 L (5-15) MEQ/L BUN 60 H (9-20) mg/dL Creatinine 1.38 H (0.66-1.25) mg/dL Estimated GFR 48.9 ML/MIN Glucose 106 (74-106) mg/dL Lactic Acid 0.9 (0.4-2.0) Calcium 8.0 L (8.4-10.2) mg/dL Magnesium (1.6-2.3) mg/dL Total Bilirubin 0.50 (0.2-1.3) mg/dL AST 33 (17-59) U/L ALT 159 H (0-50) U/L Alkaline Phosphatase 148 H (38-126) U/L Troponin I (0.000-0.034) ng/mL NT-Pro-B Natriuret Pep (<300) pg/mL Serum Total Protein 4.7 L (6.3-8.2) g/dL Albumin 2.6 L (3.5-5.0) g/dL TSH 3rd Generation (0.47-4.68) mIU/L Urine Color (Yellow) Urine Appearance (Clear) Urine pH (4.6-8.0) Ur Specific [place] (1.005-1.030) Urine Protein (Negative) Urine Glucose (UA) (Negative) mg/dL Urine Ketones (Negative) Urine Blood (Negative) Urine Nitrite (Negative) Urine Bilirubin (Negative) Urine Urobilinogen (0.2) mg/dL Ur Leukocyte Esterase (Negative) U Hyaline Cast (Auto) (0-2) /LPF Urine Microscopic RBC (0-5) /HPF Urine Microscopic WBC (0-5) /HPF Ur Epithelial Cells (None Seen) /HPF Urine Bacteria (None Seen) /HPF Urine Culture Reflexed (NO) Slides for Path Review 12/20/23 12/20/23 Range/Units 09:15 12:19 WBC (4.0-10.5) x10^3/uL RBC (4.1-5.6) x10^6/uL Hgb (12.5-18.0) g/dL Hct (42-50) % MCV (78-100) fL MCH (26-32) pg MCHC (32-36) g/dL RDW (11.5-14.0) % Plt Count (150-450) x10^3/uL MPV (7.5-11.0) fL Gran % (36.0-66.0) % Immature Gran % (Auto) (0.00-0.4) % Nucleat RBC Rel Count (0.00-0.1) % Eos # (Auto) (0-0.5) x10^3/uL Immature Gran # (Auto) (0.00-0.03) x10^3u/L Absolute Lymphs (auto) (1.0-4.6) x10^3/uL Absolute Monos (auto) (0.0-1.3) x10^3/uL Absolute Nucleated RBC (0.00-0.01) x10^3u/L Lymphocytes % (24.0-44.0) % Monocytes % (0.0-12.0) % Eosinophils % (0.00-5.0) % Basophils % (0.0-0.4) % Absolute Granulocytes (1.4-6.9) x10^3/uL Basophils # (0-0.4) x10^3/uL Puncture Site rt brach RIGHT BRACHIAL pCO2 102 H* 78 H* (35-45) mmHg pO2 148 H* 60 L (75-100) mmHg Base Excess 14.9 H 16.7 H (-2.0-2.0) O2 Saturation 96.1 90.1 L (94-100) g/dF ABG pH 7.26 L 7.37 (7.35-7.45) ABG HCO3 45.8 H* 45.1 H* (22-28) ABG O2 Sat (Measured) 99.2 92.7 L (95-100) % Alberto Test n/a NOT APPLICABLE A-a Gradient -19 99 a/A Ratio 1.15 0.38 Hemoglobin 11.1 10.5 Carboxyhemoglobin 2.0 2.0 (0.0-6.9) % THgb Methemoglobin 1.1 L 0.8 L (1.4-1.5) % Temperature 37.0 37.0 C POC O2 Flow Rate 36 36 % Sodium (137-145) mmol/L Potassium 5.5 H 4.8 (3.5-5.1) mmol/L Chloride (98-107) mmol/L Carbon Dioxide (22-30) mmol/L Anion Gap (5-15) MEQ/L BUN (9-20) mg/dL Creatinine (0.66-1.25) mg/dL Estimated GFR ML/MIN Glucose (74-106) mg/dL Lactic Acid (0.4-2.0) Calcium (8.4-10.2) mg/dL Magnesium (1.6-2.3) mg/dL Total Bilirubin (0.2-1.3) mg/dL AST (17-59) U/L ALT (0-50) U/L Alkaline Phosphatase (38-126) U/L Troponin I (0.000-0.034) ng/mL NT-Pro-B Natriuret Pep (<300) pg/mL Serum Total Protein (6.3-8.2) g/dL Albumin (3.5-5.0) g/dL TSH 3rd Generation (0.47-4.68) mIU/L Urine Color (Yellow) Urine Appearance (Clear) Urine pH (4.6-8.0) Ur Specific [place] (1.005-1.030) Urine Protein (Negative) Urine Glucose (UA) (Negative) mg/dL Urine Ketones (Negative) Urine Blood (Negative) Urine Nitrite (Negative) Urine Bilirubin (Negative) Urine Urobilinogen (0.2) mg/dL Ur Leukocyte Esterase (Negative) U Hyaline Cast (Auto) (0-2) /LPF Urine Microscopic RBC (0-5) /HPF Urine Microscopic WBC (0-5) /HPF Ur Epithelial Cells (None Seen) /HPF Urine Bacteria (None Seen) /HPF Urine Culture Reflexed (NO) Slides for Path Review - Radiology Exams Ordered Rad Exams-Entire Visit: Radiology Procedures Category Date Time Status ABDOMEN AND PELVIS W/0 CONTRAS [CT] Stat Exams 12/20/23 10:24 Taken CERVICAL SPINE WO CONTRAST [CT] Stat Exams 12/19/23 17:30 Completed CHEST 1 VIEW (PORTABLE) Stat Exams 12/19/23 17:26 Completed HEAD WITHOUT CONTRAST [CT] Stat Exams 12/19/23 17:26 Completed HIP UNI (2V) INCL PEL IF DONE Stat Exams 12/20/23 10:24 Completed MRI BRAIN W/O CONTRAST [MRI] Routine Exams 12/20/23 10:24 Ordered - Procedures and Test Procedures and Tests throughout Hospitalization: Therapy Orders & Screens 12/19/23 23:11 Respiratory Therapy Assessment DAILY Comment: Diagnosis: AMS 12/20/23 07:09 Oxygen Nasal Cannula 4 lpm Comment: Diagnosis: AMS 12/20/23 09:56 BiPap/CPAP STAT Comment: Diagnosis: AMS 12/20/23 21:21 PT Eval & Treat ( Order) ONCE Reason for Eval:: Debility, possible placement need Diagnosis: Debility Discharge Exam General Appearance: moderate distress, alert Neurologic Exam: alert, cooperative, sensation nml, disoriented, aphasia, other (unresponsive this am, LOC improved with biapa but not at baseline.), No motor deficits Eye Exam: PERRL, EOMI, eyes nml inspection Ears, Nose, Throat Exam: normal ENT inspection, pharynx normal, moist mucous membranes Neck Exam: normal inspection, non-tender, supple, full range of motion Respiratory Exam: diminished breath sounds, crackles/rales, No respiratory distress Cardiovascular Exam: regular rate/rhythm, normal heart sounds Gastrointestinal/Abdomen Exam: soft, No tenderness, No mass Male Genitalia Exam: deferred Rectal Exam: deferred Back Exam: normal inspection, normal range of motion, No CVA tenderness, No vertebral tenderness Extremity Exam: normal inspection, normal range of motion Skin Exam: normal color, warm, dry Wound Assessment: Skin/Wound Assessment Wound/Incision Assessment Start: 12/20/23 00:38 Text: Status: Active Freq: Q6H Protocol: Document 12/20/23 06:38 MP (Rec: 12/20/23 06:48 MP [id number]) Wound/Incision Assessment Right Knee Wound Assessment Admission Wound Type sore Dressing Status Dry & Intact General Appearance Open to air Right Arm Wound Assessment Admission Wound Type multiple sores Wound Stage Non Pressure Wound Dressing Status Dry & Intact General Appearance Open to air Left Upper Elbow Wound Assessment Admission Wound Type Skin Tear Dressing Status Dry & Intact Drainage Odor None/Absent General Appearance Bleeding Wound Photo Photo Taken Yes Date: 12/19/23 Final Diagnosis/Problem List - Final Discharge Diagnosis/Problem (1) Pneumonia Current Visit: Yes Status: Acute Assessment & Plan: - ceftriaxone, azithromycin, steroids, advair Code(s): J18.9 - PNEUMONIA, UNSPECIFIED ORGANISM (2) Hypoxia Current Visit: No Status: Acute Assessment & Plan: - 2:2 pneumonia, COPD - ABG this AM - RT placed on bipap Code(s): R09.02 - HYPOXEMIA (3) Unresponsiveness Current Visit: Yes Status: Acute Assessment & Plan: - 2:2 hypoxia - CT head Impression: No change compared to ER CT exam 3 days ago. 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 - MRI brain -pending (4) Injury of right hip Current Visit: Yes Status: Acute Assessment & Plan: - recent multiple falls [employer] - XR right hip 12/20 There is no evidence of acute fracture or dislocation. A rest of radiological examination of the hip demonstrates no lytic or sclerotic lesion. Joint space is reduced with mild sclerosis along acetabular margins and osteophyte formation. The cortical margins of the osseous structures are within normal limits. There are no intra-articular or periarticular calcifications. IMPRESSION: 1. There is no evidence of acute fracture or dislocation. 2. Mild degenerative changes at right hip joint. - CT abd/pelvis pending - hold eliquis, scd's started - if imaging negative can start lovenox Code(s): S79.911A - UNSPECIFIED INJURY OF RIGHT HIP, INITIAL ENCOUNTER (5) Hematuria Current Visit: Yes Status: Acute Assessment & Plan: - + UTI - antibiotics - 2:2 injury?, CT abd/pelvis pending Code(s): R31.9 - HEMATURIA, UNSPECIFIED (6) Atrial fibrillation Current Visit: Yes Status: Acute Assessment & Plan: - tele - chronic - eliquis held d/t injury with fall - scd's for now - can change to lovenox if imaging negative Code(s): I48.91 - UNSPECIFIED ATRIAL FIBRILLATION (7) Hyperkalemia Current Visit: Yes Status: Acute Assessment & Plan: - K+ 5.6 - Lasix IV x1 now - recheck labs Code(s): E87.5 - HYPERKALEMIA (8) Leukocytosis Current Visit: Yes Status: Acute Assessment & Plan: - WBC 14.1 - 2:2 pneumonia, UTI - Continue antibiotocs Code(s): D72.829 - ELEVATED WHITE BLOOD CELL COUNT, UNSPECIFIED (9) Anemia Current Visit: No Status: Acute Assessment & Plan: - hgb stable 10.5 Code(s): D64.9 - ANEMIA, UNSPECIFIED (10) COPD (chronic obstructive pulmonary disease) Current Visit: No Status: Acute Assessment & Plan: - continue advair, steriods, antibiotocs - + acute exacerbation (11) Elevated liver enzymes Current Visit: No Status: Acute Assessment & Plan: - improved today - AST 33- WNL - ALT 159 elevated - 2:2 infection Code(s): R74.8 - ABNORMAL LEVELS OF OTHER SERUM ENZYMES (12) Hypertension Current Visit: No Status: Acute Assessment & Plan: - BP stable - Continue home meds Code(s): I10 - ESSENTIAL (PRIMARY) HYPERTENSION (13) Renal failure Current Visit: No Status: Acute Assessment & Plan: - creat 1.38- baseline normal - BIENVENIDO - IVF (14) CHF (congestive heart failure) Current Visit: Yes Status: Acute Assessment & Plan: - BNP 44408 - Lasix this AM x1 - No recent echo Code(s): I50.9 - HEART FAILURE, UNSPECIFIED (15) Complicated UTI (urinary tract infection) Current Visit: Yes Status: Acute Assessment & Plan: - Chronic indwelling sotelo - + hematuria - ceftriaxone Code(s): N39.0 - URINARY TRACT INFECTION, SITE NOT SPECIFIED - Discharge Discharge Date: 12/20/23 Disposition: DC TO OTHER HOSP Condition: Fair Prescriptions: Continue Furosemide [Lasix] 20 mg PO DAILY Prednisone 20 mg [Deltasone 20 mg] 10 mg PO DAILY Fluticasone/Vilanterol [Breo Ellipta 100-25 Mcg Inhalr] 1 puff NEB DAILY Apixaban [Eliquis] 2.5 mg PO BID M-Vit,Tx,Iron,Mins/Calc/Folic [Thera-M Caplet] 1 ea DAILY Albuterol Sulfate [Albuterol Sulfate Hfa] 2 puff IH TID Azithromycin 250 mg PO DAILY Amiodarone HCl 200 mg [Cordarone 200 MG] 200 mg PO DAILY Acetaminophen 500 mg [Tylenol Extra Strength 500 mg] 1,000 mg PO Q6H PRN PRN Reason: Pain Metoprolol Succinate 25 mg Xl* [Toprol-Xl 25MG Tablets] 12.5 mg PO DAILY Cefdinir 300 mg PO BID #20 cap Ergocalciferol (Vitamin D2) [Vitamin D2] 1 cap PO WEEKLY Emollient Base [Emollient] See Rx Instructions .ROUTE .COMPLEX Follow up with: DANIEL WESTFALL OF [Primary Care Provider] -
--- NOTE | 2023-12-20 13:33 | XRAY ---
CLINICAL HISTORY: suspected fall TECHNIQUE: CT of the abdomen and pelvis was performed with axial images as well as sagittal and coronal reconstruction images without intravenous contrast. COMPARISON: None. FINDINGS: Bilateral mild pleural effusion is seen with bilateral basal relaxation collapse more on the right basal lung segments. The heart size is within normal limits. The liver is normal in size, and morphology with small hypodense areas measuring 1.1x1.1cm in left lobe image number 15/85 serial number 02, 1.0x1.1cm in segment VIII, and 1.0X0.9cm in segment VII, and no intrahepatic or extrahepatic bile duct dilation seen. Unremarkable appearing gallbladder with no stone wall thickening or pericholecystic inflammatory changes or fluid. Unremarkable appearing pancreas. No pancreatic mass or ductal dilatation is seen. Unremarkable appearing spleen. The adrenal glands are normal. The kidneys appear unremarkable with no hydronephrosis. Possible high-density cyst/mass seen in superior /mid pole of left kidney measuring 1.9x1.5cm in image number 25/85 serial 02. The ureters are normal with no stones. Unremarkable abdominal aorta without specific evidence of aneurysm or dissection. IVC is normal. The stomach appears unremarkable. Unremarkable appearing duodenum. Small Bowel and colon are non-distended with no abnormality No free air and no ascites. No free intraperitoneal air is seen. The bladder is empty and catheterized with calcification and enlargement of the prostate. Osteoarthritis changes are noted in the right hip joint and nailing in the left femoral neck and head without breaking or loosening. 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 Bilateral sacroilitis seen with osseous fusion (ankylosis). Severe degenerative changes are seen in the spine. Atherosclerotic changes are seen in the abdominal aorta IMPRESSION: 1. Bilateral mild pleural effusion is seen with bilateral basal lung relaxation collapse more on the right side. 2. Severe degenerative changes in the spine with bilateral osteoarthritic changes in the hip with the nail on the left side without breaking or loosening. 3. 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 4. Bilateral sacroiliitis and ankylosis. 5. Small hypodense areas in the liver could be cysts/lesions need further assessment with contrast. 6. Prostatic enlargement. The referring physician's office was called at at 12:26 PM [employer] on 12/20/2023 and the results were verbally communicated to Tran. Electronically Signed by: Shara Rincon MD. (12/20/2023 13:28:10 EST)
[2023-12-20 14:02] LABS: BILIRUBIN,TOTAL 0.7 mg/dL (0.2-1.3); Calcium 7.8 mg/dL (8.4-10.2); Creatinine 1 1.23 mg/dL (0.66-1.25); EST GLOMERULAR FILTRATION RATE 56.1 ML/MIN; MAGNESIUM 2.7 mg/dL (1.6-2.3); Potassium 4.7 mmol/L (3.5-5.1); Total Protein 5.2 g/dL (6.3-8.2)
[2023-12-20 14:10] LABS: ANION GAP 4.7 MEQ/L (5-15)
[2023-12-20 14:17] VITALS: RESP 18; O2SAT 99
[2023-12-20 14:55] VITALS: PULSE 63
[2023-12-20] MEDS: Cordarone 200 MG PO SCH (15:10)
[2023-12-20] MEDS: Toprol-Xl 25MG Tablets PO SCH (15:10)
[2023-12-20] MEDS: DELTASONE 10 MG PO SCH (15:10)
[2023-12-20 16:26] VITALS: BP 100/45
[2023-12-20] MEDS ORDERED: Advair Hfa 230/21 Mcg COMMON CANISTER IH SCH (19:00)
[2023-12-20] MEDS ORDERED: ROCEPHIN 1 GM / 100 ML NaCl 1 GM/100 ML IVPB IV SCH (22:00)
[2023-12-20] MEDS ORDERED: Zithromax 500 MG/ 250 ML NaCl Premix 500 MG/250 ML IVPB IV SCH (22:00)
== END 2023-12-20 16:10 ==
LOC: ED 17:23 → MED SURG 21:24 → ICU 12-20 10:12
PROVIDERS: ADMIT Internal Medicine; ATTEND Internal Medicine
DX: J18.9 Pneumonia, unspecified organism (principal); R09.02 Hypoxemia; R40.4 Transient alteration of awareness; S79.911A Unspecified injury of right hip, initial encounter; R31.9 Hematuria, unspecified; I48.91 Unspecified atrial fibrillation; E87.5 Hyperkalemia; D72.829 Elevated white blood cell count, unspecified; D64.9 Anemia, unspecified; J44.9 Chronic obstructive pulmonary disease, unspecified; R74.8 Abnormal levels of other serum enzymes; N19 Unspecified kidney failure; I11.0 Hypertensive heart disease with heart failure; I50.9 Heart failure, unspecified; N39.0 Urinary tract infection, site not specified; F03.90 Unspecified dementia, unspecified severity, without behavioral disturbance, psychotic disturbance, mood disturbance, and anxiety; W19.XXXA Unspecified fall, initial encounter; Z79.01 Long term (current) use of anticoagulants; Z79.899 Other long term (current) drug therapy; Z20.828 Contact with and (suspected) exposure to other viral communicable diseases; Z86.73 Personal history of transient ischemic attack (TIA), and cerebral infarction without residual deficits
CPT/HCPCS: 36000; 36415; 36600; 51702; 70450; 71045; 72125; 73502; 74176; 80053; 81001; 82375; 82803; 83605; 83735; 83880; 84443; 84484; 85025; 85027; 87040; 87086; 93005; 94002; 94640; 94760; 94762; 99285; Q3014; 93268; J0456; J0696; J1940; J7609; A9270-GY; G0378

== ENCOUNTER 2024-01-03 13:18 | Observation (INO) | payer MEDICARE ==
[2024-01-03] MEDS ORDERED: DUONEB 0.5-3 MG/3 ml Neb IH ONE (13:30)
[2024-01-03] MEDS: DUONEB 0.5-3 MG/3 ml Neb IH ONE (13:35)
[2024-01-03] MEDS ORDERED: solu-MEDROL ONE (13:45)
[2024-01-03] MEDS ORDERED: Sterile H2O 10 ml IJ ONE (13:45)
--- NOTE | 2024-01-03 13:49 | XRAY ---
Indication: Aspiration. Comparison: December 19, 2023 Portable chest demonstrates worsening moderate right base infiltrate/atelectasis/effusion. Clearing previous left base infiltrate/atelectasis/effusion. Heart not enlarged. No new cardiopulmonary abnormalities.
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
[2024-01-03 14:01] LABS: Absolute Neutrophil Ct (ANC) 9.91 x10^3/uL (1.4-6.9); BASOPHIL % 0.3 % (0.0-0.4); Basophil (Absolute #) 0.03 x10^3/uL (0-0.4); Eosinophil % 0.2 % (0.00-5.0); Eosinophil (Absolute #) 0.02 x10^3/uL (0-0.5); Hematocrit 45.5 % (42-50); Hemoglobin 13.1 g/dL (12.5-18.0); IMMATURE GRAN # 0.26 x10^3u/L (0.00-0.03); IMMATURE GRAN % 2.2 % (0.00-0.4); Lymphocyte (Absolute #) 0.59 x10^3/uL (1.0-4.6); Lymphocytes % 4.9 % (24.0-44.0); Mean Cell Volume 99.6 fL (78-100); Mean Corpuscular Hemoglobin 28.7 pg (26-32); Mean Corpuscular Hgb Concent. 28.8 g/dL (32-36); Mean Platelet Volume 11.2 fL (7.5-11.0); Monocyte (Absolute #) 1.12 x10^3/uL (0.0-1.3); Monocytes % 9.4 % (0.0-12.0); Platelet Count 193 x10^3/uL (150-450); Red Blood Count 4.57 x10^6/uL (4.1-5.6); Red Cell Distribution Width 15.9 % (11.5-14.0); White Blood Count 11.9 x10^3/uL (4.0-10.5)
[2024-01-03 14:03] LABS: A-aADO2 84; ABG HEMOGLOBIN 12.7; ABG POTASSIUM 3.9 (3.5-5.1); ARTERIAL BLD GAS O2 SATURATION 98.8 % (95-100); ARTERIAL BLOOD GAS BASE EXCESS 7.4 (-2.0-2.0); ARTERIAL BLOOD GAS FIO2 40 %; ARTERIAL BLOOD GAS PO2 100 mmHg (75-100); ARTERIAL BLOOD GAS pH 7.27 (7.35-7.45); CARBOXYHEMOGLOBIN 1.9 % THgb (0.0-6.9); HCO3- 37.2 (22-28); HGB O2 SAT 96.1 g/dF (94-100); Methhemoglobin 0.8 % (1.4-1.5); paO2 pAO1 0.54
[2024-01-03 14:06] LABS: ARTERIAL BLOOD GAS PCO2 81 mmHg (35-45)
[2024-01-03 14:26] LABS: ALBUMIN 3.6 g/dL (3.5-5.0); ANION GAP 10.6 MEQ/L (5-15); BILIRUBIN,TOTAL 0.6 mg/dL (0.2-1.3); Calcium 8.8 mg/dL (8.4-10.2); Creatinine 1 1.05 mg/dL (0.66-1.25); EST GLOMERULAR FILTRATION RATE 67.9 ML/MIN; MAGNESIUM 2.3 mg/dL (1.6-2.3); Potassium 3.7 mmol/L (3.5-5.1); Total Protein 6.2 g/dL (6.3-8.2)
[2024-01-03 14:47] LABS: Slide Review 1 YES
[2024-01-03] MEDS ORDERED: Sodium Chloride 100ML MINI-BAG PLUS 100 ML IV ONE ×2 (15:23→23:54)
[2024-01-03] MEDS ORDERED: PIPERACILLIN/TAZOBACTAM IV ONE ×3 (15:23→23:54)
[2024-01-03] MEDS: solu-MEDROL 125 MG, Sterile H2O 10 ml 2 ML IV ONE (15:24)
[2024-01-03] MEDS: PIPERACILLIN/TAZOBACTAM 3.375 GM in Sodium Chloride 100ML MINI-BAG PLUS 100 ML IV ONE (15:26)
[2024-01-03] MEDS: Levofloxacin 500MG/100ML D5W 500 MG/100 ML BAG IV STA (16:11)
[2024-01-03] MEDS ORDERED: Levofloxacin 500MG/100ML D5W 500 MG/100 ML BAG IV ONE (16:11)
[2024-01-03 16:36] LABS: Appearance Turbid (Clear); Bacteria None Seen /HPF (None Seen); Bilirubin Negative (Negative); Blood Large (Negative); Epithelial Cells Rare /HPF (None Seen); Glucose, Urine Negative (Negative); Ketones Negative (Negative); Leukocyte Esterase Small (Negative); Nitrite Negative (Negative); Protein,Urine Dip 100 (Negative); RBC >100 /HPF (0-5); WBC 51-100 /HPF (0-5)
[2024-01-03 16:37] LABS: ADD URINE CULTURE? ORDERED SEPARATELY (NO); Mucus Many /HPF (NEGATIVE)
[2024-01-03 17:39] LABS: A-aADO2 125; ABG HEMOGLOBIN 11.3; ABG POTASSIUM 3.5 (3.5-5.1); ARTERIAL BLD GAS O2 SATURATION 98.7 % (95-100); ARTERIAL BLOOD GAS BASE EXCESS 7.4 (-2.0-2.0); ARTERIAL BLOOD GAS FIO2 40 %; ARTERIAL BLOOD GAS PO2 84 mmHg (75-100); ARTERIAL BLOOD GAS pH 7.36 (7.35-7.45); CARBOXYHEMOGLOBIN 1.8 % THgb (0.0-6.9); HCO3- 34.5 (22-28); HGB O2 SAT 96.2 g/dF (94-100); Methhemoglobin 0.6 % (1.4-1.5)
[2024-01-03 17:40] LABS: ARTERIAL BLOOD GAS PCO2 61 mmHg (35-45)
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
[2024-01-03] MEDS ORDERED: TYLENOL 325 MG PO PRN (18:05)
[2024-01-03] MEDS ORDERED: Zofran 4 MG/2 ML VIAL IV PRN (18:10)
[2024-01-03] MEDS ORDERED: APRESOLINE 20 MG/ML INJ IV PRN (18:21)
[2024-01-03] MEDS: DUONEB 0.5-3 MG/3 ml Neb IH SCH (19:23)
[2024-01-03] MEDS: ACETAZOLAMIDE 125 MG PO SCH (23:29)
[2024-01-03] MEDS: ELIQUIS 2.5 MG TABLET PO SCH (23:31)
[2024-01-04] MEDS: PIPERACILLIN/TAZOBACTAM 3.375 GM in Sodium Chloride 100ML MINI-BAG PLUS 100 ML IV SCH (00:06)
[2024-01-04 04:54] LABS: Hematocrit 37.4 % (42-50); Hemoglobin 11.1 g/dL (12.5-18.0); Mean Cell Volume 96.4 fL (78-100); Mean Corpuscular Hemoglobin 28.6 pg (26-32); Mean Corpuscular Hgb Concent. 29.7 g/dL (32-36); Platelet Count 145 x10^3/uL (150-450); Red Blood Count 3.88 x10^6/uL (4.1-5.6); Red Cell Distribution Width 15.9 % (11.5-14.0); White Blood Count 5.1 x10^3/uL (4.0-10.5)
[2024-01-04 05:15] LABS: ALBUMIN 2.9 g/dL (3.5-5.0); ANION GAP 8.6 MEQ/L (5-15); BILIRUBIN,TOTAL 0.5 mg/dL (0.2-1.3); Calcium 8.3 mg/dL (8.4-10.2); Creatinine 1 0.93 mg/dL (0.66-1.25); EST GLOMERULAR FILTRATION RATE 78.5 ML/MIN; Potassium 4.2 mmol/L (3.5-5.1)
[2024-01-04] MEDS ORDERED: PIPERACILLIN/TAZOBACTAM IV ONE (05:32)
[2024-01-04] MEDS ORDERED: Sodium Chloride 100ML MINI-BAG PLUS 100 ML IV ONE (05:32)
--- NOTE | 2024-01-04 05:55 | PCM.NOTE ---
Date and Time: 01/04/24 0554 Subjective Assessment: HPI: is a 88 year old male with PMHX of TIA, cataracts, COPD, OA, RA, TBI, atrial fibrillation on Eliquis, recent blood clot in the arm, chronic respiratory failure on 3 L oxygen,and lives in [facility]. Recent admission on 12/19/23 for pneumonia. Patient was transferred to higher level of care during that admission for intubation and vent therapy as patient became unresponsive due to most likely co2 retention. Patient was just released 12/31/23 back to the nursing facility. Patient poor historian, history limited due to lethargy during interview, nurse states he did wake up enough on arrival and was able to tell her it was December, that he was at [place], and asked to take the BIPAP mask off. Patient arrived to ED via ambulance after choking at detention on his mechanical soft diet. Per report patient having gurgling sounds and dyspnea. In ED, patient tachypneic, hypertensive, and hypoxic on arrival. Patient was placed on BIPAP with spo2 improving to 97%. CXR demonstrates worsening of moderate right base infiltrate and clearing of left base infiltrate. Labs remarkable for WBC at 11.9, carbon dioxide at 34, BUN at 28, alk phos 131, UA with leuks. Patient treated in ED with Zosyn/levaquin/solumedrol/Duonebs. Placed on BIPAP with noted improvement in ABG. Will treat for aspiration pneumonia. Treat with steroids and bronchodilators. Continue BIPAP. Patient is full code and if he deteriorates will need transfer to higher level of care but for now, ABGs have improved and he is more responsive. 01/04/24: Met with patient bedside. Interview limited due to condition. Remains lethargic but more alert and orientated to self/year, opening eyes, and answering questi ons today. Endorses continued shortness of breath and cough. Denies cp, abdominal pain, BHATTI, dizziness, N/V/D. Speech therapy has evaluated patient, full report pending, patient is able to swallow pills with applesauce. Remains on oxymask at 5L. - Review of Systems Constitutional: No Symptoms Eyes: No Symptoms Ears, Nose, & Throat: No Symptoms Respiratory: Cough, Short Of Breath, Wheezing Cardiac: No Symptoms Abdominal/Gastrointestinal: No Symptoms Genitourinary Symptoms: No Symptoms, Other (indwelling catheter) Musculoskeletal: Back Pain Neurological: Lethargy Psychological: No Symptoms Hematologic/Lymphatic: No Symptoms Immunological/Allergic: No Symptoms Objective Exam General Appearance: no apparent distress, lethargy Neurologic Exam: alert, cooperative, confusion, motor weakness Skin Exam: pale Wound Assessment: Skin/Wound Assessment Wound/Incision Assessment Start: 01/03/24 17:05 Text: Status: Active Freq: Q6H Protocol: Document 01/04/24 02:00 BANG (Rec: 01/04/24 02:34 JV [id number]) Wound/Incision Assessment Left Upper Arm Wound Type Skin Tear Wound Stage Non Pressure Wound Dressing Status Dry & Intact Drainage Amount None Primary Dressing Non-Adherent Gauze Pads Secondary Dressing Gauze Roll/Wrap Wound Photo Photo Taken Yes Eye Exam: PERRL Ears, Nose, Throat Exam: normal ENT inspection Neck Exam: normal inspection Respiratory Exam: diminished breath sounds, crackles/rales, wheezing Cardiovascular Exam: regular rate/rhythm, normal heart sounds Gastrointestinal/Abdomen Exam: soft, normal bowel sounds Extremity Exam: normal inspection Back Exam: normal inspection Male Genitalia Exam: deferred Rectal Exam: deferred Objective Data Vital Signs: Vital Signs - 24 hr Temp Pulse Resp BP BP Pulse Ox 01/04/24 04:00 97.1 F 96 H 20 118/58 97 01/03/24 23:53 97.1 F 52 L 20 132/60 97 01/03/24 20:51 64 20 97 01/03/24 20:00 97.5 F 69 26 H 117/57 96 01/03/24 16:38 96.8 F 76 21 194/76 98 01/03/24 16:36 97 01/03/24 16:00 90 20 133/53 01/03/24 15:44 75 22 137/51 99 01/03/24 15:43 77 23 96 01/03/24 15:40 81 23 98 01/03/24 15:32 78 27 H 01/03/24 15:13 100 01/03/24 15:00 78 28 H 143/65 01/03/24 14:30 75 19 162/70 99 01/03/24 14:17 84 31 H 173/79 97 01/03/24 13:36 79 23 100 01/03/24 13:30 84 30 H 179/72 97 01/03/24 13:21 97.2 F 84 30 H 188/78 93 L Pain Assessment - Last Documented Pain Intensity 0 Intake and Output: Intake & Output 01/01/24 01/02/24 01/03/24 01/04/24 11:59 11:59 11:59 11:59 Intake Total 0 Output Total 100 Balance -100 Weight 50 kg Lab Results: Lab Results-Last 24 Hours 01/03/24 01/03/24 01/03/24 Range/Units 13:25 13:45 13:46 WBC 11.9 H (4.0-10.5) x10^3/uL RBC 4.57 (4.1-5.6) x10^6/uL Hgb 13.1 (12.5-18.0) g/dL Hct 45.5 (42-50) % MCV 99.6 (78-100) fL MCH 28.7 (26-32) pg MCHC 28.8 L (32-36) g/dL RDW 15.9 H (11.5-14.0) % Plt Count 193 (150-450) x10^3/uL MPV 11.2 H (7.5-11.0) fL Gran % 83.0 H (36.0-66.0) % Immature Gran % (Auto) 2.2 H (0.00-0.4) % Nucleat RBC Rel Count 0.0 (0.00-0.1) % Eos # (Auto) 0.02 (0-0.5) x10^3/uL Immature Gran # (Auto) 0.26 H (0.00-0.03) x10^3u/L Absolute Lymphs (auto) 0.59 L (1.0-4.6) x10^3/uL Absolute Monos (auto) 1.12 (0.0-1.3) x10^3/uL Absolute Nucleated RBC 0.00 (0.00-0.01) x10^3u/L Lymphocytes % 4.9 L (24.0-44.0) % Monocytes % 9.4 (0.0-12.0) % Eosinophils % 0.2 (0.00-5.0) % Basophils % 0.3 (0.0-0.4) % Absolute Granulocytes 9.91 H (1.4-6.9) x10^3/uL Basophils # 0.03 (0-0.4) x10^3/uL Puncture Site pCO2 (35-45) mmHg pO2 (75-100) mmHg Base Excess (-2.0-2.0) O2 Saturation (94-100) g/dF ABG pH (7.35-7.45) ABG HCO3 (22-28) ABG O2 Sat (Measured) (95-100) % Alberto Test A-a Gradient a/A Ratio Hemoglobin Carboxyhemoglobin (0.0-6.9) % THgb Methemoglobin (1.4-1.5) % Temperature C POC O2 Flow Rate % Sodium 142 (135-145) mmol/L Potassium 3.7 (3.5-5.1) mmol/L Chloride 101 (98-107) mmol/L Carbon Dioxide 34 H (22-30) mmol/L Anion Gap 10.6 (5-15) MEQ/L BUN 28 H (9-20) mg/dL Creatinine 1.05 (0.66-1.25) mg/dL Estimated GFR 67.9 ML/MIN Glucose 124 H (74-106) mg/dL Lactic Acid 1.1 (0.4-2.0) Calcium 8.8 (8.4-10.2) mg/dL Magnesium 2.3 (1.6-2.3) mg/dL Total Bilirubin 0.60 (0.2-1.3) mg/dL AST 26 (17-59) U/L ALT 39 (0-50) U/L Alkaline Phosphatase 131 H (38-126) U/L Troponin I (0.000-0.034) ng/mL NT-Pro-B Natriuret Pep 1720 (<300) pg/mL Serum Total Protein 6.2 L (6.3-8.2) g/dL Albumin 3.6 (3.5-5.0) g/dL Urine Color (Yellow) Urine Appearance (Clear) Urine pH (4.6-8.0) Ur Specific [place] (1.005-1.030) Urine Protein (Negative) Urine Glucose (UA) (Negative) mg/dL Urine Ketones (Negative) Urine Blood (Negative) Urine Nitrite (Negative) Urine Bilirubin (Negative) Urine Urobilinogen (0.2) mg/dL Ur Leukocyte Esterase (Negative) U Hyaline Cast (Auto) (0-2) /LPF Urine Microscopic RBC (0-5) /HPF Urine Microscopic WBC (0-5) /HPF Ur Epithelial Cells (None Seen) /HPF Urine Bacteria (None Seen) /HPF Urine Mucus (NEGATIVE) /HPF Urine Culture Reflexed (NO) Slides for Path Review YES 01/03/24 01/03/24 01/03/24 Range/Units 13:46 13:51 16:17 WBC (4.0-10.5) x10^3/uL RBC (4.1-5.6) x10^6/uL Hgb (12.5-18.0) g/dL Hct (42-50) % MCV (78-100) fL MCH (26-32) pg MCHC (32-36) g/dL RDW (11.5-14.0) % Plt Count (150-450) x10^3/uL MPV (7.5-11.0) fL Gran % (36.0-66.0) % Immature Gran % (Auto) (0.00-0.4) % Nucleat RBC Rel Count (0.00-0.1) % Eos # (Auto) (0-0.5) x10^3/uL Immature Gran # (Auto) (0.00-0.03) x10^3u/L Absolute Lymphs (auto) (1.0-4.6) x10^3/uL Absolute Monos (auto) (0.0-1.3) x10^3/uL Absolute Nucleated RBC (0.00-0.01) x10^3u/L Lymphocytes % (24.0-44.0) % Monocytes % (0.0-12.0) % Eosinophils % (0.00-5.0) % Basophils % (0.0-0.4) % Absolute Granulocytes (1.4-6.9) x10^3/uL Basophils # (0-0.4) x10^3/uL Puncture Site left brach pCO2 81 H* (35-45) mmHg pO2 100 (75-100) mmHg Base Excess 7.4 H (-2.0-2.0) O2 Saturation 96.1 (94-100) g/dF ABG pH 7.27 L (7.35-7.45) ABG HCO3 37.2 H* (22-28) ABG O2 Sat (Measured) 98.8 (95-100) % Alberto Test n/a A-a Gradient 84 a/A Ratio 0.54 Hemoglobin 12.7 Carboxyhemoglobin 1.9 (0.0-6.9) % THgb Methemoglobin 0.8 L (1.4-1.5) % Temperature 37.0 C POC O2 Flow Rate 40 % Sodium (135-145) mmol/L Potassium 3.9 (3.5-5.1) mmol/L Chloride (98-107) mmol/L Carbon Dioxide (22-30) mmol/L Anion Gap (5-15) MEQ/L BUN (9-20) mg/dL Creatinine (0.66-1.25) mg/dL Estimated GFR ML/MIN Glucose (74-106) mg/dL Lactic Acid (0.4-2.0) Calcium (8.4-10.2) mg/dL Magnesium (1.6-2.3) mg/dL Total Bilirubin (0.2-1.3) mg/dL AST (17-59) U/L ALT (0-50) U/L Alkaline Phosphatase (38-126) U/L Troponin I 0.012 (0.000-0.034) ng/mL NT-Pro-B Natriuret Pep (<300) pg/mL Serum Total Protein (6.3-8.2) g/dL Albumin (3.5-5.0) g/dL Urine Color Dark Yellow (Yellow) Urine Appearance Turbid A (Clear) Urine pH 6.0 (4.6-8.0) Ur Specific [place] 1.020 (1.005-1.030) Urine Protein 100 A (Negative) Urine Glucose (UA) Negative (Negative) mg/dL Urine Ketones Negative (Negative) Urine Blood Large A (Negative) Urine Nitrite Negative (Negative) Urine Bilirubin Negative (Negative) Urine Urobilinogen 1.0 A (0.2) mg/dL Ur Leukocyte Esterase Small A (Negative) U Hyaline Cast (Auto) 11-20 (0-2) /LPF Urine Microscopic RBC >100 A (0-5) /HPF Urine Microscopic WBC 51-100 A (0-5) /HPF Ur Epithelial Cells Rare (None Seen) /HPF Urine Bacteria None Seen (None Seen) /HPF Urine Mucus Many A (NEGATIVE) /HPF Urine Culture Reflexed ORDERED SEPARATELY (NO) Slides for Path Review 01/03/24 01/03/24 01/03/24 Range/Units 17:16 17:30 21:20 WBC (4.0-10.5) x10^3/uL RBC (4.1-5.6) x10^6/uL Hgb (12.5-18.0) g/dL Hct (42-50) % MCV (78-100) fL MCH (26-32) pg MCHC (32-36) g/dL RDW (11.5-14.0) % Plt Count (150-450) x10^3/uL MPV (7.5-11.0) fL Gran % (36.0-66.0) % Immature Gran % (Auto) (0.00-0.4) % Nucleat RBC Rel Count (0.00-0.1) % Eos # (Auto) (0-0.5) x10^3/uL Immature Gran # (Auto) (0.00-0.03) x10^3u/L Absolute Lymphs (auto) (1.0-4.6) x10^3/uL Absolute Monos (auto) (0.0-1.3) x10^3/uL Absolute Nucleated RBC (0.00-0.01) x10^3u/L Lymphocytes % (24.0-44.0) % Monocytes % (0.0-12.0) % Eosinophils % (0.00-5.0) % Basophils % (0.0-0.4) % Absolute Granulocytes (1.4-6.9) x10^3/uL Basophils # (0-0.4) x10^3/uL Puncture Site left fem pCO2 61 H* (35-45) mmHg pO2 84 (75-100) mmHg Base Excess 7.4 H (-2.0-2.0) O2 Saturation 96.2 (94-100) g/dF ABG pH 7.36 (7.35-7.45) ABG HCO3 34.5 H* (22-28) ABG O2 Sat (Measured) 98.7 (95-100) % Alberto Test n/a A-a Gradient 125 a/A Ratio 0.40 Hemoglobin 11.3 Carboxyhemoglobin 1.8 (0.0-6.9) % THgb Methemoglobin 0.6 L (1.4-1.5) % Temperature 37.0 C POC O2 Flow Rate 40 % Sodium (135-145) mmol/L Potassium 3.5 (3.5-5.1) mmol/L Chloride (98-107) mmol/L Carbon Dioxide (22-30) mmol/L Anion Gap (5-15) MEQ/L BUN (9-20) mg/dL Creatinine (0.66-1.25) mg/dL Estimated GFR ML/MIN Glucose (74-106) mg/dL Lactic Acid (0.4-2.0) Calcium (8.4-10.2) mg/dL Magnesium (1.6-2.3) mg/dL Total Bilirubin (0.2-1.3) mg/dL AST (17-59) U/L ALT (0-50) U/L Alkaline Phosphatase (38-126) U/L Troponin I < 0.012 < 0.012 (0.000-0.034) ng/mL NT-Pro-B Natriuret Pep (<300) pg/mL Serum Total Protein (6.3-8.2) g/dL Albumin (3.5-5.0) g/dL Urine Color (Yellow) Urine Appearance (Clear) Urine pH (4.6-8.0) Ur Specific [place] (1.005-1.030) Urine Protein (Negative) Urine Glucose (UA) (Negative) mg/dL Urine Ketones (Negative) Urine Blood (Negative) Urine Nitrite (Negative) Urine Bilirubin (Negative) Urine Urobilinogen (0.2) mg/dL Ur Leukocyte Esterase (Negative) U Hyaline Cast (Auto) (0-2) /LPF Urine Microscopic RBC (0-5) /HPF Urine Microscopic WBC (0-5) /HPF Ur Epithelial Cells (None Seen) /HPF Urine Bacteria (None Seen) /HPF Urine Mucus (NEGATIVE) /HPF Urine Culture Reflexed (NO) Slides for Path Review 01/04/24 01/04/24 Range/Units 04:35 04:35 WBC 5.1 (4.0-10.5) x10^3/uL RBC 3.88 L (4.1-5.6) x10^6/uL Hgb 11.1 L (12.5-18.0) g/dL Hct 37.4 L (42-50) % MCV 96.4 (78-100) fL MCH 28.6 (26-32) pg MCHC 29.7 L (32-36) g/dL RDW 15.9 H (11.5-14.0) % Plt Count 145 L (150-450) x10^3/uL MPV 11.0 (7.5-11.0) fL Gran % (36.0-66.0) % Immature Gran % (Auto) (0.00-0.4) % Nucleat RBC Rel Count (0.00-0.1) % Eos # (Auto) (0-0.5) x10^3/uL Immature Gran # (Auto) (0.00-0.03) x10^3u/L Absolute Lymphs (auto) (1.0-4.6) x10^3/uL Absolute Monos (auto) (0.0-1.3) x10^3/uL Absolute Nucleated RBC (0.00-0.01) x10^3u/L Lymphocytes % (24.0-44.0) % Monocytes % (0.0-12.0) % Eosinophils % (0.00-5.0) % Basophils % (0.0-0.4) % Absolute Granulocytes (1.4-6.9) x10^3/uL Basophils # (0-0.4) x10^3/uL Puncture Site pCO2 (35-45) mmHg pO2 (75-100) mmHg Base Excess (-2.0-2.0) O2 Saturation (94-100) g/dF ABG pH (7.35-7.45) ABG HCO3 (22-28) ABG O2 Sat (Measured) (95-100) % Alberto Test A-a Gradient a/A Ratio Hemoglobin Carboxyhemoglobin (0.0-6.9) % THgb Methemoglobin (1.4-1.5) % Temperature C POC O2 Flow Rate % Sodium 140 (135-145) mmol/L Potassium 4.2 (3.5-5.1) mmol/L Chloride 105 (98-107) mmol/L Carbon Dioxide 31 H (22-30) mmol/L Anion Gap 8.6 (5-15) MEQ/L BUN 30 H (9-20) mg/dL Creatinine 0.93 (0.66-1.25) mg/dL Estimated GFR 78.5 ML/MIN Glucose 146 H (74-106) mg/dL Lactic Acid (0.4-2.0) Calcium 8.3 L (8.4-10.2) mg/dL Magnesium (1.6-2.3) mg/dL Total Bilirubin 0.50 (0.2-1.3) mg/dL AST 20 (17-59) U/L ALT 28 (0-50) U/L Alkaline Phosphatase 101 (38-126) U/L Troponin I (0.000-0.034) ng/mL NT-Pro-B Natriuret Pep (<300) pg/mL Serum Total Protein 5.0 L (6.3-8.2) g/dL Albumin 2.9 L (3.5-5.0) g/dL Urine Color (Yellow) Urine Appearance (Clear) Urine pH (4.6-8.0) Ur Specific [place] (1.005-1.030) Urine Protein (Negative) Urine Glucose (UA) (Negative) mg/dL Urine Ketones (Negative) Urine Blood (Negative) Urine Nitrite (Negative) Urine Bilirubin (Negative) Urine Urobilinogen (0.2) mg/dL Ur Leukocyte Esterase (Negative) U Hyaline Cast (Auto) (0-2) /LPF Urine Microscopic RBC (0-5) /HPF Urine Microscopic WBC (0-5) /HPF Ur Epithelial Cells (None Seen) /HPF Urine Bacteria (None Seen) /HPF Urine Mucus (NEGATIVE) /HPF Urine Culture Reflexed (NO) Slides for Path Review Radiology Exams: Radiology Procedures Category Date Time Status CHEST 1 VIEW (PORTABLE) Stat Exams 01/03/24 13:25 Completed MODIFIED BARIUM SWALLOW (RAD) [MODIFIED BARIUM SWALLOW Exams 01/04/24 08:00 Ordered EXAM] Routine Assessment/Plan (1) Acute respiratory failure with hypoxia Current Visit: Yes Status: Acute Assessment & Plan: -2/2 to pneumonia copd exac -On BIPAP, baseline 2-3L -ABGs improving, PRN if becomes lethargic 01/03: -oxymask, mentation improving Code(s): J96.01 - ACUTE RESPIRATORY FAILURE WITH HYPOXIA (2) Aspiration pneumonia Current Visit: Yes Status: Acute Assessment & Plan: -on BIPAP -RT consult -Nebs/Inh, supplemental oxygen with spo2 goal 88-92% -Consider Pulm consult if no improvement -Consider CT -ABG improving with BIPAP -solumedrol 40mg bid -LA wnl -ABG prn if lethargic -Sputum culture -Zosyn 3g Q6H/levaquin -blood cult pending 01/03: WBC now wnl -blood cult pending -sput pending -continue steroid/abx Code(s): J69.0 - PNEUMONITIS DUE TO INHALATION OF FOOD AND VOMIT (3) UTI (urinary tract infection) Current Visit: Yes Status: Acute Assessment & Plan: -Chronic indwelling cath, may be colonized, will follow culture, patient on zosyn/levaquin 01/03: -Cult with no growth Code(s): N39.0 - URINARY TRACT INFECTION, SITE NOT SPECIFIED (4) CHF (congestive heart failure) Current Visit: Yes Status: Acute Assessment & Plan: -BNP 1720 -No recent echo Code(s): I50.9 - HEART FAILURE, UNSPECIFIED (5) Leukocytosis Current Visit: Yes Status: Acute Assessment & Plan: 2/2 most likely to pneumonia -Zosyn/levaquin -trend -BCult/sputum/ucult pending 01/03 -resolved Code(s): D72.829 - ELEVATED WHITE BLOOD CELL COUNT, UNSPECIFIED (6) COPD with exacerbation Current Visit: Yes Status: Acute Assessment & Plan: -see ARF - continue advair, steriods, Zosyn/levaquin Code(s): J44.1 - CHRONIC OBSTRUCTIVE PULMONARY DISEASE W (ACUTE) EXACERBATION (7) HTN (hypertension) Current Visit: Yes Status: Acute Assessment & Plan: -Continue home medication, will add hydralazine prn Code(s): I10 - ESSENTIAL (PRIMARY) HYPERTENSION Code(s): J96.01 - ACUTE RESPIRATORY FAILURE WITH HYPOXIA (2) Aspiration pneumonia Current Visit: Yes Status: Acute Code(s): J69.0 - PNEUMONITIS DUE TO INHALATION OF FOOD AND VOMIT (3) UTI (urinary tract infection) Current Visit: Yes Status: Acute Code(s): N39.0 - URINARY TRACT INFECTION, SITE NOT SPECIFIED (4) CHF (congestive heart failure) Current Visit: Yes Status: Acute Code(s): I50.9 - HEART FAILURE, UNSPECIFIED (5) Leukocytosis Current Visit: Yes Status: Acute Code(s): D72.829 - ELEVATED WHITE BLOOD CELL COUNT, UNSPECIFIED (6) COPD with exacerbation Current Visit: Yes Status: Acute Code(s): J44.1 - CHRONIC OBSTRUCTIVE PULMONARY DISEASE W (ACUTE) EXACERBATION (7) HTN (hypertension) Current Visit: Yes Status: Acute Code(s): I10 - ESSENTIAL (PRIMARY) HYPERTENSION
[2024-01-04] MEDS ORDERED: MEDICATION INTERVENTION MC SCH (07:30)
[2024-01-04] MEDS ORDERED: VITAMIN D3 PO SCH (10:00)
[2024-01-04] MEDS ORDERED: MAGNESIUM PO SCH (10:00)
[2024-01-04] MEDS ORDERED: CALCIUM PO SCH (10:00)
[2024-01-04] MEDS: Dextrose 5%/Water IV Soln. 1000 ML 1,000 ML IV SCH (11:39)
[2024-01-04] MEDS: THERAGRAN MULTIVITAMIN PO SCH (12:18)
[2024-01-04] MEDS: Toprol-Xl 25MG Tablets PO SCH (12:18)
[2024-01-04] MEDS: ACETAZOLAMIDE 250 MG TABLET PO SCH (12:19)
--- NOTE | 2024-01-04 13:08 | XRAY ---
Indication: Aspiration pneumonia. Modified barium swallow study was performed bedside by the Department of speech therapy with fluoroscopic assistance provided. Patient ingested multiple consistencies of liquids and solids. Full report and recommendations will reported separately. Approximately 53 seconds fluoroscopy used.
[2024-01-04] MEDS: solu-MEDROL 80 MG, Sterile H2O 10 ml 2 ML IV SCH (13:31)
[2024-01-04] MEDS: LEVOFLOXACIN 750MG/150ML D5W 750 MG/150 ML BAG IV SCH (17:02)
[2024-01-05 04:56] VITALS: RESP 20
--- NOTE | 2024-01-05 05:20 | PCM.NOTE ---
Date and Time: 01/05/24 0517 Subjective Assessment: is a 88 year old male with PMHX of TIA, cataracts, COPD, OA, RA, TBI, atrial fibrillation on Eliquis, recent blood clot in the arm, chronic respiratory failure on 3 L oxygen,and lives in correction. Recent admission on 12/19/23 for pneumonia. Patient was transferred to higher level of care during that admission for intubation and vent therapy as patient became unresponsive due to most likely co2 retention. Patient was just released 12/31/23 back to the nursing facility. Patient poor historian, history limited due to lethargy during interview, nurse states he did wake up enough on arrival and was able to tell her it was December, that he was at [facility], and asked to take the BIPAP mask off. Patient arrived to ED via ambulance after choking at correction on his mechanical soft diet. Per report patient having gurgling sounds and dyspnea. In ED, patient tachypneic, hypertensive, and hypoxic on arrival. Patient was placed on BIPAP with spo2 improving to 97%. CXR demonstrates worsening of moderate right base infiltrate and clearing of left base infiltrate. Labs remarkable for WBC at 11.9, carbon dioxide at 34, BUN at 28, alk phos 131, UA with leuks. Patient treated in ED with Zosyn/levaquin/solumedrol/Duonebs. Placed on BIPAP with noted improvement in ABG. Will treat for aspiration pneumonia. Treat with steroids and bronchodilators. Continue BIPAP. Patient is full code and if he deteriorates will need transfer to higher level of care but for now, ABGs have improved and he is more responsive. Barium swallow performed with speech therapy per the results of the swallow study recommendations include puree diet-thin purees, and honey thick liquids, meds should be crushed and given in applesauce, and she would like for him to be offered several small meals throughout the day rather than three large ones. Objective Exam Wound Assessment: Skin/Wound Assessment Wound/Incision Assessment Start: 01/03/24 17:05 Text: Status: Active Freq: Q6H Protocol: Document 01/05/24 01:46 AR (Rec: 01/05/24 01:47 AR [id number]) Wound/Incision Assessment Left Upper Arm Wound Assessment Shift Assessment Wound Type Skin Tear Wound Stage Non Pressure Wound Dressing Status Dry & Intact Drainage Amount None Primary Dressing Non-Adherent Gauze Pads Secondary Dressing Gauze Roll/Wrap Wound Photo Photo Taken No Objective Data Vital Signs: Vital Signs - 24 hr Temp Pulse Resp BP Pulse Ox 01/05/24 04:00 98.0 F 60 20 126/58 96 01/04/24 23:14 98.1 F 69 26 H 138/62 97 01/04/24 20:00 97.1 F 73 19 130/66 83 L 01/04/24 18:52 74 22 99 01/04/24 16:00 97.6 F 73 16 134/60 97 01/04/24 12:16 76 20 90 L 01/04/24 11:37 97.6 F 77 26 H 114/77 89 L 01/04/24 07:33 79 20 99 01/04/24 06:43 97.8 F 84 18 115/63 96 Pain Assessment - Last Documented Pain Intensity 0 Intake and Output: Intake & Output 01/02/24 01/03/24 01/04/24 01/05/24 11:59 11:59 11:59 11:59 Intake Total 0 880 Output Total 100 400 Balance -100 480 Weight 50 kg Lab Results: Lab Results-Last 24 Hours 01/04/24 Range/Units 04:35 Sodium 140 (135-145) mmol/L Potassium 4.2 (3.5-5.1) mmol/L Chloride 105 (98-107) mmol/L Carbon Dioxide 31 H (22-30) mmol/L Anion Gap 8.6 (5-15) MEQ/L BUN 30 H (9-20) mg/dL Creatinine 0.93 (0.66-1.25) mg/dL Estimated GFR 78.5 ML/MIN Glucose 146 H (74-106) mg/dL Calcium 8.3 L (8.4-10.2) mg/dL Total Bilirubin 0.50 (0.2-1.3) mg/dL AST 20 (17-59) U/L ALT 28 (0-50) U/L Alkaline Phosphatase 101 (38-126) U/L Serum Total Protein 5.0 L (6.3-8.2) g/dL Albumin 2.9 L (3.5-5.0) g/dL Radiology Exams: Radiology Procedures Category Date Time Status CHEST 1 VIEW (PORTABLE) Stat Exams 01/03/24 13:25 Completed MODIFIED BARIUM SWALLOW (RAD) [MODIFIED BARIUM SWALLOW Exams 01/04/24 08:00 Completed EXAM] Routine Multi-Disciplinary Progress Notes: Multi-Disciplinary Progress Notes 01/04/24 16:15 Mod Barium Swallow Note by Williams#[id number] Modified Barium Swallow Study ST Modified Barium Swallow Study Start: 01/04/24 15:27 Freq: Status: Active Protocol: Document 01/04/24 15:27 BM (Rec: 01/04/24 16:02 BM [id number]) E-Sign 01/04/24 15:27 BM Modified Barium Swallow Reason for Assessment Primary Diagnosis J69.0 - PNEUMONITIS DUE TO INHALATION OF FOOD AND VOMIT Primary Diagnosis (cont) J96.01 - ACUTE RESPIRATORY FAILURE WITH HYPOXIA Treatment Diagnosis #1 R13.12 - DYSPHAGIA, OROPHARYNGEAL PHASE Reason for Assessment PATIENT REFERRED FOR MBS STUDY FOLLOWING EVALUATION REQUEST AND CHART REVIEW BY OPTO MECHANICAL TECHNICIAN. MBS REQUESTED BY ST DUE TO CURRENT MEDICAL STATUS, HX, AND RECENT RECURRENT HOSPITALIZATION. Onset Date 01/03/24 Date of Evaluation/SOC 01/04/24 Pain Assessment Non-verbal signs & symptoms of pain No Modified Barium Swallow View This evaluation was completed to assess the functioning of the oral and pharyngeal phases of swallowing and to determine if the patient is aspirating or at risk for aspiration. Modified Barium Swallow View Lateral View Consistencies Assessed Barium trials included: Thin Liquid via Spoon,[place] Liquid via Spoon,Thin Honey Liquid via spoon,Honey Liquid via Spoon,Pudding Liquid via spoon,Pureed Food Aspiration Risk Amount of Aspiration Observed Small Patient considered at risk of aspiration Yes during oral intake Patient is at risk for aspiration Before the swallow,During the swallow Severity of Aspiration Risk Moderate Penetration occured with Thin Liquid Reason for aspirational risk: PATIENT AT RISK FOR ASPIRATION PRIOR TO SWALLOW DUE TO PREMATURE SPILLAGE TO VALLECULAE AND PHARYNGEAL RECESSES PRIOR TO SWALLOW INITIATION. PATIENT AT RISK FOR ASPIRATION DURING THE SWALLOW DUE TO INCOMPLETE LARYNGEAL VESTIBULE CLOSURE RESULTING IN ASPIRATION. 8-Point Penetration-Aspiration Scale (Rosenbek) 5.Material enters the airway,contacts Yes the vocal folds and IS NOT ejected from the airway. Consistency Thin Method of presentation Teaspoon Comment: ASPIRATION OCCURRED X 1 WITH TEASPOON PRESENTATION OF THIN LIQUID BARIUM. Residue/Retention Residue Observed Valleculae Left Esophageal Function No Impairment (WFL) Other MBS STUDY LIMITED IN ASSESSMENT OF ESOPHAGEAL FUNCTION DUE TO MOVEMENT LIMITATIONS OF EQUIPMENT UTILIZED. Assessment of Swallow Phases Oral Phase Labial Closure No Impairment (WFL) Bolus Control Pooling L/R Minimal Impairment Bolus Control under Tongue No Impairment (WFL) Bolus Control Scattered Loss Minimal Impairment A/P Bolus Propulsion Mild Impairment Premature Spillage into: Pyriform Sinuses A/P Lingual Propulsion Delay No Impairment (WFL) Lingual Movement Mild Impairment Residue Clearing/Sensitivity No Impairment (WFL) Aspiration Yes Swallow Initiation Delay No Impairment (WFL) Other Oral Phase Observations PATIENT WITH MILD DEFICIT IN ORAL PHASE OF SWALLOW, INDICATED ABOVE. HE REQUIRED TONGUE PUMPING FOR A/P BOLUS MOVEMENT. Pharyngeal Phase Base of Tongue Retraction No Impairment (WFL) Epiglottic Coverage No Impairment (WFL) Laryngeal Elevation No Impairment (WFL) Reduced Anterior Laryngeal Movement No Laryngeal Closure Mild Impairment Vallecular Retention Clearing Mild Impairment Penetration Yes Aspiration Yes Cricopharyngeal Dysfunction No Cough Throat Clear Other Pharyngeal Phase Observation PATIENT WITH ASPIRATION OCCURRING DURING THE PHARYNGEAL PHASE OF SWALLOW DUE TO INCOMPLETE LARYNGEAL VESTIBULE CLOSURE WITH THIN LIQUID BARIUM PRESENTED VIA SPOON. NO ASPIRATION OCCURRED WITH ANY OTHER TEXTURES/ SWALLOWS. IMMEDIATELY FOLLOWING ASPIRATION OCCURRANCE, PATIENT WITH SLIGHT INCREASE IN EFFORTFUL BREATHING. RT PRESENT TO ASSIST WITH OXYGEN AND RESPIRATORY CARE OF PATIENT THROUGHOUT MBS STUDY. Clinical Interpretation Clinical Interpretation PATIENT WITH MODERATE OROPHARYNGEAL DYSPHAGIA WITH ASPIRATION Speech Therapy Teaching Record Teaching Summary Results/Recommendations Learning Preferences Discussion Readiness for Learning No Interest Teaching Methods Discussion Teaching Recipient Patient Response to Teaching Reinforcement needed Comment BARRIERS TO LEARNING: MEDICAL STATUS, FATIGUE, WEAKNESS. DISCUSSED RESULTS/ RECOMMENDATIONS WITH NURSE AND OPTO MECHANICAL TECHNICIAN UPON COMPLETION OF MBS. ST Recommendations Diet Consistency Pureed Liquid Consistency Honey Safe Swallow Compensatory Strategies Compensatory Strategies Upright Position for all meals ,Small bites and drinks,Dry swallows,Alternate solids/ liquids,Thicken Liquids (see consistency above) Medication Instructions Crush Medication(s),Medication (s) in pudding or applesauce Staff/Family Suggestions Direct supervision/assistance with all meals Rehabilitation Potential: FAIR Additional Comments: PATIENT DEMONSTRATED SIGNIFICANT WEAKNESS AND REQUIRED RT TO MAINTAIN OXYGEN INTAKE, CHILD WELFARE CASEWORKER TO HOLD HIM UPRIGHT TO KEEP FROM SLUMPING TO THE RIGHT SIDE WHEN SEATED WITH HEAD OF BED UP 90 DEGREES. DISCUSSED NEED FOR SEVERAL SMALL MEALS/INTAKE ATTEMPTS THROUGHOUT THE DAY TO MAXIMIZE NUTRITIONAL INTAKE. Signatures Speech Therapist Signature MS TASIA, CCC/NURSE INFECTION CONTROL Physician Signature DR Brien KATZ, RADIOLOGIST Initialized on 01/04/24 16:15 - END OF NOTE 01/04/24 11:55 Case Management Note by Usha Maxwell PATIENT A&O TO PLACE AND YEAR BUT WAS UNABLE TO SAY WHERE HE LIVED AND REPORTED THE [place]. S/W TIA ALARCON AT [facility]- PATIENT HAS BEEN THERE SINCE 06/2023 THIS STAY. 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 PATIENT HAS NO FAMILY AND HAS NOT HAD ANY VISITORS WHILE AT THEIR FACILITY. THEY REPORT HIS BIMS LEVEL OF FUNCTION IS TOO HIGH FOR HIM TO HAVE A COURT APPOINTED GUARDIAN AND HE HAS NO ONE TO LIST A POA. WILL PLAN FOR PATIENT TO RETURN BACK TO [facility] AT TIME OF DC Initialized on 01/04/24 11:55 - END OF NOTE 01/04/24 07:24 Pharmacy Note by Duke Dudley Levaquin dose adjusted to 750mg iv q48h per renal dosing policy. Est. crcl is 35ml/min. Initialized on 01/04/24 07:24 - END OF NOTE Assessment/Plan (1) Acute respiratory failure with hypoxia Current Visit: Yes Status: Acute Assessment & Plan: -2/2 to pneumonia copd exac -On BIPAP, baseline 2-3L -ABGs improving, PRN if becomes lethargic 8: -oxymask, mentation improving Code(s): J96.01 - ACUTE RESPIRATORY FAILURE WITH HYPOXIA (2) Aspiration pneumonia Current Visit: Yes Status: Acute Assessment & Plan: -on BIPAP -RT consult -Nebs/Inh, supplemental oxygen with spo2 goal 88-92% -Consider Pulm consult if no improvement -Consider CT -ABG improving with BIPAP -solumedrol 40mg bid -LA wnl -ABG prn if lethargic -Sputum culture -Zosyn 3g Q6H/levaquin -blood cult pending 01/03: WBC now wnl -blood cult pending -sput pending -continue steroid/abx Code(s): J69.0 - PNEUMONITIS DUE TO INHALATION OF FOOD AND VOMIT (3) UTI (urinary tract infection) Current Visit: Yes Status: Acute Assessment & Plan: -Chronic indwelling cath, may be colonized, will follow culture, patient on zosyn/levaquin 01/03: -Cult with no growth Code(s): N39.0 - URINARY TRACT INFECTION, SITE NOT SPECIFIED (4) CHF (congestive heart failure) Current Visit: Yes Status: Acute Assessment & Plan: -BNP 1720 -No recent echo Code(s): I50.9 - HEART FAILURE, UNSPECIFIED (5) Leukocytosis Current Visit: Yes Status: Acute Assessment & Plan: 2/2 most likely to pneumonia -Zosyn/levaquin -trend -BCult/sputum/ucult pending 01/03 -resolved Code(s): D72.829 - ELEVATED WHITE BLOOD CELL COUNT, UNSPECIFIED (6) COPD with exacerbation Current Visit: Yes Status: Acute Assessment & Plan: -see ARF - continue advair, steriods, Zosyn/levaquin Code(s): J44.1 - CHRONIC OBSTRUCTIVE PULMONARY DISEASE W (ACUTE) EXACERBATION (7) HTN (hypertension) Current Visit: Yes Status: Acute Assessment & Plan: -Continue home medication, will add hydralazine prn Code(s): I10 - ESSENTIAL (PRIMARY) HYPERTENSION Code(s): J96.01 - ACUTE RESPIRATORY FAILURE WITH HYPOXIA Code(s): J96.01 - ACUTE RESPIRATORY FAILURE WITH HYPOXIA (2) Aspiration pneumonia Current Visit: Yes Status: Acute Code(s): J69.0 - PNEUMONITIS DUE TO INHALATION OF FOOD AND VOMIT (3) UTI (urinary tract infection) Current Visit: Yes Status: Acute Code(s): N39.0 - URINARY TRACT INFECTION, SITE NOT SPECIFIED (4) CHF (congestive heart failure) Current Visit: Yes Status: Acute Code(s): I50.9 - HEART FAILURE, UNSPECIFIED (5) Leukocytosis Current Visit: Yes Status: Acute Code(s): D72.829 - ELEVATED WHITE BLOOD CELL COUNT, UNSPECIFIED (6) COPD with exacerbation Current Visit: Yes Status: Acute Code(s): J44.1 - CHRONIC OBSTRUCTIVE PULMONARY DISEASE W (ACUTE) EXACERBATION (7) HTN (hypertension) Current Visit: Yes Status: Acute Code(s): I10 - ESSENTIAL (PRIMARY) HYPERTENSION
[2024-01-05 05:35] LABS: Hemoglobin 9.6 g/dL (12.5-18.0); Mean Cell Volume 97.6 fL (78-100); Mean Corpuscular Hemoglobin 28.4 pg (26-32); Mean Corpuscular Hgb Concent. 29.1 g/dL (32-36); Mean Platelet Volume 10.9 fL (7.5-11.0); Platelet Count 157 x10^3/uL (150-450); Red Blood Count 3.38 x10^6/uL (4.1-5.6); Red Cell Distribution Width 15.9 % (11.5-14.0); White Blood Count 16.1 x10^3/uL (4.0-10.5)
[2024-01-05 05:49] LABS: ALBUMIN 2.7 g/dL (3.5-5.0); ANION GAP 7.4 MEQ/L (5-15); BILIRUBIN,TOTAL 0.2 mg/dL (0.2-1.3); Creatinine 1 0.98 mg/dL (0.66-1.25); EST GLOMERULAR FILTRATION RATE 73.7 ML/MIN; Potassium 3.3 mmol/L (3.5-5.1); Total Protein 4.9 g/dL (6.3-8.2)
[2024-01-05 08:04] VITALS: O2SAT 91
[2024-01-05] MEDS ORDERED: HUMALOG SQ PRN (08:46)
--- NOTE | 2024-01-05 10:38 | PCM.DS ---
Discharge Summary Date of Admission: 01/03/24 16:19 Date of Discharge: 01/05/24 Admitting Physician: NILSON MEDINA MD Primary Care Provider: MAGNOLIA ISABEL Allergies Allergies No Known Drug Allergies Allergy (Verified 12/16/23 14:59) Hospital Summary - Hospital Course Hospital Course: is a 88 year old male with PMHX of TIA, cataracts, COPD, OA, RA, TBI, atrial fibrillation on Eliquis, recent blood clot in the arm, chronic respiratory failure on 3 L oxygen,and lives in skilled nursing. Recent admission on 12/19/23 for pneumonia. Patient was transferred to higher level of care during that admission for intubation and vent therapy as patient became unresponsive due to most likely co2 retention. Patient was just released 12/31/23 back to the nursing facility. Patient poor historian, history limited due to lethargy during interview, nurse states he did wake up enough on arrival and was able to tell her it was December, that he was at [facility], and asked to take the BIPAP mask off. Patient arrived to ED via ambulance after choking at skilled nursing on his mechanical soft diet. Per report patient having gurgling sounds and dyspnea. In ED, patient tachypneic, hypertensive, and hypoxic on arrival. Patient was placed on BIPAP with spo2 improving to 97%. CXR demonstrates worsening of moderate right base infiltrate and clearing of left base infiltrate. Labs remarkable for WBC at 11.9, carbon dioxide at 34, BUN at 28, alk phos 131, UA with leuks, culture negative. Patient treated in ED with Zosyn/levaquin/solumedrol/Duonebs. Placed on BIPAP with noted improvement in ABG. Treated for aspiration pneumonia. IP treatment with steroids and bronchodilators. Labs/ABGs have improved, on baseline oxygen of 3L, and at baseline mentation. Barium swallow performed with speech therapy per the results of the swallow study recommendations include puree diet-thin purees, and honey thick liquids, meds should be crushed and given in applesauce, and she would like for him to be offered several small meals throughout the day rather than three large ones. Will dismiss with augmentin. Discharge Note New Diagnosis: Aspiration pneumonia New Medications: Augmentin/prednisone/duonebs Latest Assessment & Plan (1) Acute respiratory failure with hypoxia Current Visit: Yes Status: Acute Assessment & Plan: -2/2 to pneumonia copd exac -On BIPAP, baseline 2-3L -ABGs improving, PRN if becomes lethargic 01/03: -oxymask, mentation improving Code(s): J96.01 - ACUTE RESPIRATORY FAILURE WITH HYPOXIA (2) Aspiration pneumonia Current Visit: Yes Status: Acute Assessment & Plan: -on BIPAP -RT consult -Nebs/Inh, supplemental oxygen with spo2 goal 88-92% -Consider Pulm consult if no improvement -Consider CT -ABG improving with BIPAP -solumedrol 40mg bid -LA wnl -ABG prn if lethargic -Sputum culture -Zosyn 3g Q6H/levaquin -blood cult pending 01/03: WBC now wnl -blood cult pending -sput pending -continue steroid/abx Code(s): J69.0 - PNEUMONITIS DUE TO INHALATION OF FOOD AND VOMIT (3) UTI (urinary tract infection) Current Visit: Yes Status: Acute Assessment & Plan: -Chronic indwelling cath, may be colonized, will follow culture, patient on zosyn/levaquin 01/03: -Cult with no growth Code(s): N39.0 - URINARY TRACT INFECTION, SITE NOT SPECIFIED (4) CHF (congestive heart failure) Current Visit: Yes Status: Acute Assessment & Plan: -BNP 1720 -No recent echo Code(s): I50.9 - HEART FAILURE, UNSPECIFIED (5) Leukocytosis Current Visit: Yes Status: Acute Assessment & Plan: 2/2 most likely to pneumonia -Zosyn/levaquin -trend -BCult/sputum/ucult pending 01/03 -resolved Code(s): D72.829 - ELEVATED WHITE BLOOD CELL COUNT, UNSPECIFIED (6) COPD with exacerbation Current Visit: Yes Status: Acute Assessment & Plan: -see ARF - continue advair, steriods, Zosyn/levaquin I spent 35 minutes [id number] with the patient on the day of discharge performing discharge exam, discussing hospital stay and discharge instructions with patient and caregivers, preparation of discharge records, prescriptions & referral forms and addressing any questions/concerns the patient had as documented above. - Vitals & Intake/Output Vital Signs: Vital Signs Temperature 96.8 F 01/05/24 08:00 Pulse Rate 65 01/05/24 08:00 Respiratory Rate 20 01/05/24 08:00 Blood Pressure 115/67 01/05/24 08:00 O2 Sat by Pulse Oximetry 91 L 01/05/24 08:00 Intake & Output: Intake & Output 01/02/24 01/03/24 01/04/24 01/05/24 11:59 11:59 11:59 11:59 Intake Total 0 940 Output Total 100 400 Balance -100 540 Weight 50 kg - Lab Result Diagrams: 01/05/24 05:15 01/05/24 05:15 Lab Results-Last 24 Hrs: Lab Results-Last 24 Hours 01/05/24 01/05/24 Range/Units 05:15 05:15 WBC 16.1 H (4.0-10.5) x10^3/uL RBC 3.38 L (4.1-5.6) x10^6/uL Hgb 9.6 L (12.5-18.0) g/dL Hct 33.0 L (42-50) % MCV 97.6 (78-100) fL MCH 28.4 (26-32) pg MCHC 29.1 L (32-36) g/dL RDW 15.9 H (11.5-14.0) % Plt Count 157 (150-450) x10^3/uL MPV 10.9 (7.5-11.0) fL Sodium 136 (135-145) mmol/L Potassium 3.3 L D (3.5-5.1) mmol/L Chloride 101 (98-107) mmol/L Carbon Dioxide 30 (22-30) mmol/L Anion Gap 7.4 (5-15) MEQ/L BUN 32 H (9-20) mg/dL Creatinine 0.98 (0.66-1.25) mg/dL Estimated GFR 73.7 ML/MIN Glucose 176 H (74-106) mg/dL Calcium 8.0 L (8.4-10.2) mg/dL Total Bilirubin 0.20 (0.2-1.3) mg/dL AST 17 (17-59) U/L ALT 25 (0-50) U/L Alkaline Phosphatase 86 (38-126) U/L Serum Total Protein 4.9 L (6.3-8.2) g/dL Albumin 2.7 L (3.5-5.0) g/dL Micro Results-Entire Visit: Microbiology 01/03/24 13:46 Blood Culture - Preliminary Blood 01/03/24 16:17 Urine Culture - Preliminary Catherized NO GROWTH TO DATE - Radiology Exams Ordered Rad Exams-Entire Visit: Radiology Procedures Category Date Time Status CHEST 1 VIEW (PORTABLE) Stat Exams 01/03/24 13:25 Completed MODIFIED BARIUM SWALLOW (RAD) [MODIFIED BARIUM SWALLOW Exams 01/04/24 08:00 Completed EXAM] Routine - Procedures and Test Procedures and Tests throughout Hospitalization: Therapy Orders & Screens 01/03/24 13:36 Respiratory Therapy Assessment DAILY Comment: 01/03/24 14:55 BiPap/CPAP ROUTINE Comment: 01/03/24 16:36 Respiratory Therapy Consult ONCE Comment: Reason For Exam: 01/03/24 16:39 Oxygen Oxymask LPM 5 lpm Comment: 01/03/24 18:05 Respiratory Therapy Consult ONCE Comment: Reason For Exam: Diagnosis: RESPIRATORY FAILURE, ASPIRATION PNEUMONIA 01/03/24 18:34 Speech Therapy Eval & Treat [ST Eval & Treat (MD Order)] .as ordered Comment: Physician Instructions: Reason For Exam: aspiration pneumonia Evaluate: Yes Treat: Yes Reason for Eval: aspiration pneumonia Diagnosis: RESPIRATORY FAILURE, ASPIRATION PNEUMONIA Discharge Exam General Appearance: no apparent distress Neurologic Exam: alert, other (orientated to self/place/month) Eye Exam: PERRL Ears, Nose, Throat Exam: normal ENT inspection Neck Exam: normal inspection Respiratory Exam: diminished breath sounds, crackles/rales, wheezing Cardiovascular Exam: regular rate/rhythm, normal heart sounds Gastrointestinal/Abdomen Exam: soft, normal bowel sounds Male Genitalia Exam: deferred, other (chronic f/c) Rectal Exam: deferred Back Exam: normal inspection Extremity Exam: normal inspection Skin Exam: normal color Wound Assessment: Skin/Wound Assessment Wound/Incision Assessment Start: 01/03/24 17:05 Text: Status: Active Freq: Q6H Protocol: Document 01/05/24 01:46 AR (Rec: 01/05/24 01:47 AR [id number]) Wound/Incision Assessment Left Upper Arm Wound Assessment Shift Assessment Wound Type Skin Tear Wound Stage Non Pressure Wound Dressing Status Dry & Intact Drainage Amount None Primary Dressing Non-Adherent Gauze Pads Secondary Dressing Gauze Roll/Wrap Wound Photo Photo Taken No Final Diagnosis/Problem List - Final Discharge Diagnosis/Problem (1) Acute respiratory failure with hypoxia Current Visit: Yes Status: Resolved Code(s): J96.01 - ACUTE RESPIRATORY FAILURE WITH HYPOXIA (2) Aspiration pneumonia Current Visit: Yes Status: Acute Code(s): J69.0 - PNEUMONITIS DUE TO INHALATION OF FOOD AND VOMIT (3) UTI (urinary tract infection) Current Visit: Yes Status: Ruled-out Code(s): N39.0 - URINARY TRACT INFECTION, SITE NOT SPECIFIED (4) CHF (congestive heart failure) Current Visit: Yes Status: Chronic Code(s): I50.9 - HEART FAILURE, UNSPECIFIED (5) Leukocytosis Current Visit: Yes Status: Acute Code(s): D72.829 - ELEVATED WHITE BLOOD CELL COUNT, UNSPECIFIED (6) COPD with exacerbation Current Visit: Yes Status: Acute Code(s): J44.1 - CHRONIC OBSTRUCTIVE PULMONARY DISEASE W (ACUTE) EXACERBATION (7) HTN (hypertension) Current Visit: Yes Status: Chronic Code(s): I10 - ESSENTIAL (PRIMARY) HYPERTENSION - Discharge Disposition: DC TO ANY "OTHER" SENIOR LIVING Condition: Stable Prescriptions: New Amox Tr/Potass Clav. 875 mg [Augmentin 875-125 Tablet] 875 mg PO BID 7 Days #14 tablet Prednisone 20 mg [Deltasone 20 mg] 20 mg PO BID 5 Days #10 tablet Albuterol/Ipratropium 3ml Neb* [DUONEB 0.5-3 MG/3 ml Neb] 3 ml IH Q4HPRN PRN PRN Reason: Shortness Of Breath/Wheezing Continue Fluticasone/Vilanterol [Breo Ellipta 100-25 Mcg Inhalr] 1 puff NEB DAILY Apixaban [Eliquis] 2.5 mg PO BID Albuterol Sulfate [Albuterol Sulfate Hfa] 2 puff IH TID Amiodarone HCl 200 mg [Cordarone 200 MG] 200 mg PO DAILY Acetaminophen 500 mg [Tylenol Extra Strength 500 mg] 1,000 mg PO Q6H PRN PRN Reason: Pain Metoprolol Succinate 25 mg Xl* [Toprol-Xl 25MG Tablets] 12.5 mg PO DAILY Ergocalciferol (Vitamin D2) [Vitamin D2] 1 cap PO WEEKLY Emollient Base [Emollient] See Rx Instructions .ROUTE .COMPLEX Acetaminophen/Diphenhydramine [Acetaminophen Pm Caplet] 2 each PO HS acetaZOLAMIDE [Acetazolamide] 125 mg PO BID Calcium/Vitamin D3/Magnesium [[place] Md Capsule] 1 each PO DAILY Multivit-Min/Folic/Vit K/Lycop [Men's 50 Plus Multivitamin Tab] 1 each PO DAILY Tiotropium [place] Inhaler [Spiriva 18 Mcg/Cap Inhaler] 1 puff IH DAILY Follow up with: MAGNOLIA ISABEL MD [Primary Care Provider] -
[2024-01-05] MEDS: K-LYTE PO ONE (12:01)
[2024-01-05] MEDS: Klor Con PO ONE (12:02)
[2024-01-05 12:13] VITALS: BP 122/57; PULSE 69; TEMP 97.3
[2024-01-06] MEDS ORDERED: VITAMIN D2 PO SCH (10:00)
== END 2024-01-05 12:40 ==
LOC: ED 13:18 → MED SURG 16:19
PROVIDERS: ADMIT Internal Medicine; ATTEND Internal Medicine
DX: J96.01 Acute respiratory failure with hypoxia (principal); J69.0 Pneumonitis due to inhalation of food and vomit; N39.0 Urinary tract infection, site not specified; I11.0 Hypertensive heart disease with heart failure; I50.9 Heart failure, unspecified; D72.829 Elevated white blood cell count, unspecified; J44.9 Chronic obstructive pulmonary disease, unspecified; I48.91 Unspecified atrial fibrillation; S41.112A Laceration without foreign body of left upper arm, initial encounter; Z79.01 Long term (current) use of anticoagulants; Z79.899 Other long term (current) drug therapy; Z20.828 Contact with and (suspected) exposure to other viral communicable diseases; Z87.820 Personal history of traumatic brain injury
CPT/HCPCS: 36000; 36415; 36600; 51702; 71045; 74230; 80053; 81001; 82375; 82803; 83605; 83735; 83880; 84484; 85025; 85027; 87040; 87086; 92611; 93005; 93041; 93268; 94002; 94003; 94640; 94762; 96374; 99285; G0378; Q3014; J1956; J2930; A9270-GY